=== PATIENT | female | born 1970 | race African-American/Black ===

== ENCOUNTER 2016-08-02 09:26 | Inpatient (IN) | payer OTHER ==
--- NOTE | 2016-08-02 09:42 | PDOC ---
History of Present Illness - General History Source: Patient Exam Limitations: No Limitations - History of Present Illness Initial Comments: 08/02/16 10:38 The patient is a 45 year old female with significant past medical history of 2 valve replacements (on Coumadin), diabetes, asthma, and COPD who presents to the emergency department with weakness for the last 2 days. The patient states that whenever she stands up she feels as though she is going to pass out, however no syncopal episodes and no LOC. The patient also reports dark, tarry stool for the last 2 days. She denies diarrhea. The patient states she feels dyspnea on exertion. She currently denies any pain. She denies chest pain, SOB at rest, or palpitations. She does report a productive cough with white sputum for the last 2 weeks. She denies any headaches or lightheadedness. She denies any abdominal pain, nausea, or vomiting. The patient denies dysuria, hematuria, or frequency. The patient denies any recent illness, fevers, or chills. She is a 1/2 ppd smoker. She also reports using Aleve daily for chronic body aches. <Emma Nieves - Last Filed: 08/02/16 11:14> <Sandip Marsh - Last Filed: 09/04/16 10:02> - General Chief Complaint: Weakness Stated Complaint: Weakness Time Seen by Provider: 08/02/16 09:41 Past History <Emma Nieves - Last Filed: 08/02/16 11:14> - Past Medical History HTN: Yes Hypercholesterolemia: Yes - Surgical History Cardiac Surgery: Yes (VALVE REPLACEMENT) - Psycho/Social/Smoking Cessation Hx Suicidal Ideation: No Smoking Status: Yes Smoking History: Current every day smoker Number of Cigarettes Smoked Daily: 10 Information on smoking cessation initiated: No <Sandip Marsh - Last Filed: 09/04/16 10:02> - Past Medical History Allergies/Adverse Reactions: Allergies Allergy/AdvReac Type Severity Reaction Status Date / Time Penicillins Allergy Verified 08/02/16 09:28 Home Medications: Ambulatory Orders Albuterol Sulfate [Proair Respiclick] 90 mcg IH DAILY 08/02/16 Olmesartan Medoxomil [Benicar -] 40 mg PO DAILY 08/02/16 Tiotropium [place] [Spiriva] 1 inh PO DAILY 08/02/16 Acetaminophen [Tylenol .Regular Strength -] 650 mg PO Q6H PRN #0 tablet Enoxaparin Sodium [Lovenox] 70 mg SQ Q12H #10 syringe 08/06/16 Nicotine Patch [Nicoderm Patch -] 21 mg TD DAILY #30 patch 08/06/16 Warfarin Na [Coumadin -] 5 mg PO HS #14 tablet 08/06/16 Review of Systems - Review of Systems Able to Perform ROS?: Yes Comments:: 08/02/16 10:39 GENERAL/CONSTITUTIONAL: +Generalized weakness. No fever or chills. HEAD, EYES, EARS, NOSE AND THROAT: No change in vision. No ear pain or discharge. No sore throat. CARDIOVASCULAR: No chest pain or shortness of breath. RESPIRATORY: No cough, wheezing, or hemoptysis. GASTROINTESTINAL: +Dark stools. No nausea, vomiting, diarrhea or constipation. GENITOURINARY: No dysuria, frequency, or change in urination. MUSCULOSKELETAL: +Body aches. No joint or muscle swelling or pain. No neck or back pain. SKIN: No rash NEUROLOGIC: No headache, vertigo, loss of consciousness, or change in strength/ sensation. ENDOCRINE: No increased thirst. No abnormal weight change. HEMATOLOGIC/LYMPHATIC: No anemia, easy bleeding, or history of blood clots. ALLERGIC/IMMUNOLOGIC: No hives or skin allergy. <Emma Nieves - Last Filed: 08/02/16 11:14> *Physical Exam - Vital Signs Last Vital Signs Temp Pulse Resp BP Pulse Ox 99 F 100 H 20 108/58 97 08/02/16 09:33 08/02/16 09:33 08/02/16 09:33 08/02/16 09:33 08/02/16 10:01 - Physical Exam Comments: 08/02/16 10:39 GENERAL: Awake, alert, and fully oriented, in no acute distress HEAD: No signs of trauma EYES: PERRLA, EOMI, sclera anicteric, conjunctiva clear ENT: Auricles normal inspection, hearing grossly normal, nares patent, oropharynx clear without exudates. Moist mucosa NECK: Normal ROM, supple, no lymphadenopathy, JVD, or masses LUNGS: Breath sounds equal, clear to auscultation bilaterally. No wheezes, and no crackles HEART: Regular rate and rhythm, normal S1 and S2, no murmurs, rubs or gallops ABDOMEN: Soft, nontender, normoactive bowel sounds. No guarding, no rebound. No masses EXTREMITIES: Normal range of motion, no edema. No clubbing or cyanosis. No cords, erythema, or tenderness NEUROLOGICAL: Cranial nerves II through XII grossly intact. Normal speech, normal gait SKIN: Warm, Dry, normal turgor, no rashes or lesions noted. Patient did not tolerate a rectal exam. <Emma Nieves - Last Filed: 08/02/16 11:14> - Vital Signs Last Vital Signs Temp Pulse Resp BP Pulse Ox 99 F 100 H 20 108/58 100 08/02/16 09:33 08/02/16 09:33 08/02/16 09:33 08/02/16 09:33 08/02/16 09:33 <Sandip Marsh - Last Filed: 09/04/16 10:02> Heart Score/ECG Review - [place] Comment: 08/02/16 10:40 Vent rate: 93 bpm [place] interval: 146 ms QRS duration: 86 ms Normal sinus rhythm Left ventricular hypertrophy <EzequielEmma - Last Filed: 08/02/16 11:14> ED Treatment Course - LABORATORY CBC & Chemistry Diagram: 08/02/16 10:01 08/02/16 10:01 - ADDITIONAL ORDERS Additional order review: Laboratory Results 08/02/16 10:01 Crossmatch See Detail 08/02/16 10:01 RBC 2.16 L MCV 80.6 MCHC 32.2 RDW 22.1 H MPV 8.7 Neutrophils % 77.8 Lymphocytes % 13.7 Monocytes % 5.4 Eosinophils % 2.7 Basophils % 0.4 <EzequielEmma - Last Filed: 08/02/16 11:14> - LABORATORY CBC & Chemistry Diagram: 08/06/16 06:00 08/06/16 06:00 - RADIOLOGY Radiology Studies Ordered: Category Date Time Status CHEST X-RAY PORTABLE* [RAD] Stat Radiology 08/02/16 09:32 Ordered <Sandip Marsh - Last Filed: 09/04/16 10:02> Medical Decision Making - Critical Care Time Total Critical Care Time (minutes): 60 Critical Care Statement: The care of this patient involved high complexity decision making to prevent further life threatening deterioration of the patient 's condition and/or to evalute & treat vital organ system(s) failure or risk of failure. - Medical Decision Making 08/02/16 10:54 45 yo F currently on coumadin and taking Aleve daily. Presents to the ED with generalized weakness and dark tarry stool for 2 days. Patient found to have INR of 9.35 and Hgb of 5.6. 08/02/16 10:[address] Cotter for admission (for patient's PMD Dr. Santana). 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 08/02/16 10:[address] Rm's office. Was told Dr. Salvador will return call for admission. 08/02/16 10:[address] Salvador for admission. Awaiting call back for ICU approval. <Emma Nieves - Last Filed: 08/02/16 11:14> *DC/Admit/Observation/Transfer - Attestations Scribe Attestion: 08/02/16 10:39 Documentation prepared by Emma Nieves, acting as medical scientific officer for Sandip Marsh DO. <Emma Nieves - Last Filed: 08/02/16 11:14> - Attestations Physician Attestion: 08/02/16 09:42 I, Dr. Sandip Marsh, attest that this document has been prepared under my direction and personally reviewed by me in its entirety. I further attest, that it accurately reflects all work, treatment, procedures and medical decision -making performed by me. <Sandip Marsh - Last Filed: 09/04/16 10:02> Diagnosis at time of Disposition: GI bleed - Discharge Dispostion Disposition: HOME Condition at time of disposition: Stable - Prescriptions - Referrals
[2016-08-02 10:20] LABS: MCH 25.9 pg (25.7-33.7); MCHC 32.2 g/dl (32.0-36.0); MEAN CELL VOLUME 80.6 fl (80-96); MEAN PLT VOLUME 8.7 fl (7.5-11.1); PLATELET COUNT 155 K/MM3 (134-434); RDW 22.1 % (11.6-15.6); WHITE BLOOD COUNT 16.3 K/mm3 (4.0-10.0)
[2016-08-02 10:26] LABS: NEUTROPHILS 77.8 % (42.8-82.8)
[2016-08-02 10:27] LABS: BASOPHIL 0.4 % (0-2.0); EOSINOPHIL 2.7 % (0-4.5)
[2016-08-02 10:49] LABS: INR 9.35 (0.82-1.09); PROTHROMBIN TIME (PATIENT) 107.7 SEC (9.98-11.88)
[2016-08-02] MEDS ORDERED: PHYTONADIONE 10 MG/1 ML AMP IVPB ONE (10:49)
[2016-08-02 10:55] LABS: ALBUMIN 3.1 g/dl (3.4-5.0); ANION GAP 8 (8-16); CALCIUM 7.5 mg/dL (8.5-10.1); CO2 21 mmol/L (21-32); CREATININE 0.8 mg/dL (0.55-1.02); GLUCOSE,RANDOM 131 mg/dL (74-106); SGOT/AST 24 U/L (15-37); SGPT/ALT 29 U/L (12-78)
[2016-08-02 10:59] LABS: ALK PHOS 62 U/L (45-117); BILIRUBIN,TOTAL 0.3 mg/dL (0.2-1.0); TOT PROT 5.8 g/dl (6.4-8.2); TROPONIN I < 0.02 ng/ml (0.00-0.05)
[2016-08-02] MEDS ORDERED: PHYTONADIONE 10 MG/1 ML AMP ONE (11:13)
--- NOTE | 2016-08-02 12:54 | HP ---
Admitting History and Physical - Primary Care Physician PCP: Saul Santana - Admission Chief Complaint: dizziness and black tarry stools for 2 days History of Present Illness: The patient is a 45 year old female with significant past medical history of 2 valve replacements (on Coumadin), diabetes, asthma, and COPD who presents to the emergency department with weakness for the last 2 days. The patient states that whenever she stands up she feels as though she is going to pass out, however no syncopal episodes and no LOC. The patient also reports dark, tarry stool for the last 2 days. She denies diarrhea. The patient states she feels dyspnea on exertion. She currently denies any pain. She denies chest pain, SOB at rest, or palpitations. She denies any headaches . She denies any abdominal pain, nausea, or vomiting. The patient denies dysuria, hematuria, or frequency. The patient denies any recent illness, fevers, or chills. She is a 1/2 ppd smoker. She also reports using Aleve daily for chronic body aches. per patient she had coloscopy a few months ago had four polyps removed but doesnot remeber name of GI doctor currently she is getting PRBC, still dizziness but is feeling better that when she came in last melanotic stool was earlier today in ER h/h 5 and INR 9 History Source: Patient - Past Medical History Cardiovascular: Yes: HTN, Hyperlipdemia, Other (heart valve) Pulmonary: Yes: Asthma, COPD Gastrointestinal: Yes: Other (polyp removed) Endocrine: Yes: Diabetes Mellitus - Past Surgical History Additional Past Surgical History: prothetic mitral valve in 2013 - Smoking History Smoking history: Current every day smoker Aproximately how many cigarettes per day: 10 Home Medications - Allergies Allergies/Adverse Reactions: Allergies Allergy/AdvReac Type Severity Reaction Status Date / Time Penicillins Allergy Verified 08/02/16 09:28 - Home Medications Home Medications: Ambulatory Orders Warfarin Na [Coumadin] 7 mg PO HS 09/05/12 Albuterol Sulfate [Proair Respiclick] 90 mcg IH DAILY 08/02/16 Amlodipine Besylate 5 mg PO DAILY 08/02/16 Atorvastatin [place] [Lipitor] 40 mg PO HS 08/02/16 Diphenhydramine [Benadryl -] 25 mg PO ASDIR 08/02/16 Gabapentin 300 mg PO DAILY 08/02/16 Linaclotide [Linzess] 145 mcg PO DAILY 08/02/16 Mirtazapine [Remeron -] 15 mg PO DAILY 08/02/16 Olmesartan Medoxomil [Benicar (Nf)] 40 mg PO DAILY 08/02/16 Tiotropium [place] [Spiriva] 1 inh PO DAILY 08/02/16 Tramadol HCl 50 mg PO DAILY 08/02/16 Review of Systems - Review of Systems Constitutional: reports: Other (dizziness) Physical Examination Vital Signs: Vital Signs Temperature 98.0 F 08/02/16 12:37 Pulse Rate 98 H 08/02/16 12:37 Respiratory Rate 20 08/02/16 12:37 Blood Pressure 99/62 08/02/16 12:37 O2 Sat by Pulse Oximetry (%) 99 08/02/16 12:37 Constitutional: Yes: Calm Eyes: Yes: Other (conjuctival pallor) Cardiovascular: Yes: Regular Rate and Rhythm, Murmur, S1, S2 Respiratory: Yes: CTA Bilaterally Gastrointestinal: Yes: Normal Bowel Sounds, Soft Edema: No Neurological: Yes: Alert, Oriented Imaging - Results Chest X-ray: Report Reviewed (no infiltrate no effusion) Problem List - Problems (1) GI bleed Assessment/Plan: icu monitioring NPO 3 untis prbc serial h/h GI eval protonix drip Code(s): K92.2 - GASTROINTESTINAL HEMORRHAGE, UNSPECIFIED (2) H/O prosthetic mitral valve Assessment/Plan: on coumadin -supratherpeutic INR FPP vitamin K cardio eval (3) Supratherapeutic INR Assessment/Plan: FFP and vitamin K Code(s): R79.1 - ABNORMAL COAGULATION PROFILE (4) HTN (hypertension) Assessment/Plan: curretnly bleeding borderline BP will hold anti htn meds for now PRBC and fluids Code(s): I10 - ESSENTIAL (PRIMARY) HYPERTENSION (5) HLD (hyperlipidemia) Assessment/Plan: lipid profile statin Code(s): E78.5 - HYPERLIPIDEMIA, UNSPECIFIED (6) Diabetes Assessment/Plan: bgm sliding scale hga1c Code(s): E11.9 - TYPE 2 DIABETES MELLITUS WITHOUT COMPLICATIONS Qualifiers: Diabetes mellitus type: type 2 (7) COPD (chronic obstructive pulmonary disease) Assessment/Plan: bronchodilators smoking cessation Code(s): J44.9 - CHRONIC OBSTRUCTIVE PULMONARY DISEASE, UNSPECIFIED
[2016-08-02] MEDS ORDERED: ALBUTEROL SO4 6.7 GM HFA INHALER IH PRN (13:01)
[2016-08-02] MEDS: PANTOPRAZOLE SODIUM 80 MG in SODIUM CHLORIDE 100 ML IVPB SCH ×2 (13:09→18:22)
[2016-08-02] MEDS: SODIUM CHLORIDE 1,000 ML IV SCH (13:09)
[2016-08-02] MEDS ORDERED: PANTOPRAZOLE SODIUM 100 ML IVPB ONE (13:10)
[2016-08-02] MEDS ORDERED: PANTOPRAZOLE SODIUM 80 MG in SODIUM CHLORIDE 100 ML IVPB SCH (13:15)
--- NOTE | 2016-08-02 14:31 | CONSULT ---
Consult - text type - Consultation Consultation Note: The patient is a 45 year old female with significant past medical history of 2 valve replacements (on Coumadin), diabetes, asthma, and COPD who presents to the emergency department with weakness for the last 2 days. The patient states that whenever she stands up she feels as though she is going to pass out, however no syncopal episodes and no LOC. The patient also reports dark, tarry stool for the last 2 days. She denies diarrhea. The patient states she feels dyspnea on exertion. She currently denies any pain. She denies chest pain, SOB at rest, or palpitations. She does report a productive cough with white sputum for the last 2 weeks. She denies any headaches or lightheadedness. She denies any abdominal pain, nausea, or vomiting. The patient denies dysuria, hematuria, or frequency. The patient denies any recent illness, fevers, or chills. She is a 1/2 ppd smoker. She also reports using Aleve daily for chronic body aches. - Past Medical History HTN: Yes Hypercholesterolemia: Yes - Surgical History Cardiac Surgery: Yes (VALVE REPLACEMENT) - Psycho/Social/Smoking Cessation Hx smoker Allergies/Adverse Reactions: Allergies Allergy/AdvReac Type Severity Reaction Status Date / Time Penicillins Allergy Verified 08/02/16 09:28 Home Medications: Ambulatory Orders Warfarin Na [Coumadin] 7 mg PO HS 09/05/12 Albuterol Sulfate [Proair Respiclick] 90 mcg IH DAILY 08/02/16 Amlodipine Besylate 5 mg PO DAILY 08/02/16 Atorvastatin Ca [Lipitor] 40 mg PO HS 08/02/16 Diphenhydramine [Benadryl -] 25 mg PO ASDIR 08/02/16 Gabapentin 300 mg PO DAILY 08/02/16 Linaclotide [Linzess] 145 mcg PO DAILY 08/02/16 Mirtazapine [Remeron -] 15 mg PO DAILY 08/02/16 Olmesartan Medoxomil [Benicar (Nf)] 40 mg PO DAILY 08/02/16 Tiotropium [place] [Spiriva] 1 inh PO DAILY 08/02/16 Tramadol HCl 50 mg PO DAILY 08/02/16 Current Medications Aclidinium [place] (Tudorza -) 1 puff IH BID LENOR[place] Albuterol Sulfate (Ventolin Hfa Inhaler -) 2 puff IH Q4H PRN PRN Reason: SHORT OF BREATH/WHEEZING Chlorhexidine Gluconate (Hibiclens For Decolonization -) 1 applic TP HS LENORA Sodium Chloride (Normal Saline -) 1,000 mls @ 100 mls/hr IV ASDIR LENORA Last Admin: 08/02/16 13:09 Dose: 100 mls/hr Pantoprazole Sodium 80 mg/ (Sodium Chloride) 100 mls @ 10 mls/hr IVPB Q10H L[place] PRN Reason: 8 MG/HR Last Admin: 08/02/16 13:09 Dose: 10 mls/hr Insulin Aspart (Novolog Vial Sliding Scale -) 1 vial SQ ACHS LENORA PRN Reason: Protocol Mupirocin (Bactroban Ointment (For Decolonization) -) 1 applic NS BID LENORA Stop: 08/07/16 21:59 Last Vital Signs Temp Pulse Resp BP Pulse Ox 97.8 F 101 H 18 128/61 98 08/02/16 14:15 08/02/16 14:15 08/02/16 14:15 08/02/16 14:15 08/02/16 14:15 HEENT: BETTIE, EOM Intact Oropharynx: No thrush, No mucositis Neck: Supple Cor: RSR, No murmurs, No gallops Lungs: Clear to P&A Abd: Soft, Normal bowel sounds, No organomegaly Ext:No significant edema Abnormal Lab Results 08/02/16 08/02/16 08/02/16 10:01 10:01 10:01 WBC 16.3 H RBC 2.16 L Hgb 5.6 L* Hct 17.4 L RDW 22.1 H INR 9.35 H* Chloride 111 H Random Glucose 131 H Calcium 7.5 L Total Protein 5.8 L Albumin 3.1 L Crossmatch 08/02/16 10:01 WBC RBC Hgb Hct RDW INR Chloride Random Glucose Calcium Total Protein Albumin Crossmatch See Detail A/P 45 y/o patient with h/o mechanical valve replacements, on coumadin comes in with gi bleed, INR of 9, Hgb of5 Getting Vitamin K 10mg IVPB/4 units FFP and 2 units PRBCS to be monitored in the icu repeat cbc/pt/ptt for gi/cardiology f/u to reinitiate a/c with heparin and coumadin bridging once gi w/u completed and bleeding resolves
[2016-08-02 15:34] LABS: ANISOCYTOSIS 4+; MICROCYTOSIS 2+; POLYCHROMASIA 2+; TARGET CELLS 1+
--- NOTE | 2016-08-02 15:38 | CONSULT ---
Consultation: REQUESTING PROVIDER: Dr. Salvador CONSULT REQUEST: We have been asked to medically evaluate this patient for critical care HISTORY OF PRESENT ILLNESS: 45 yo female with h/o ?mitral regurgitation s/p valve replacement on coumadin, DM, asthma, COPD admitted to the ICU for supratherapeutic level of INR (9.35) and possible GIB. Pt was found to have dizziness, lightheadedness, and black tarry stool for 3 days. In addition, she' s experiencing headaches, seeing cho and feeling short of breath. She admits taking Alieve (500mg) x 4 pills yesterday and 2 pills this morning for fibromylgia but never overdosed on her coumadin. Her most recently colonoscopy was done few months ago and a few polyps were removed. Denies trauma, fever, chills, abd pain, chest pain, dysuria, hematuria. REVIEW OF SYSTEMS: CONSTITUTIONAL: generalized weakness Absent: fever, chills, diaphoresis, malaise, loss of appetite, weight change HEENT: Absent: rhinorrhea, nasal congestion, throat pain, throat swelling, difficulty swallowing, mouth swelling, ear pain, eye pain, visual changes CARDIOVASCULAR: syncope, lightheadedness Absent: chest pain, palpitations, irregular heart rate, peripheral edema RESPIRATORY: shortness of breath, dyspnea with exertion Absent: cough, orthopnea, wheezing, stridor, hemoptysis GASTROINTESTINAL:melena Absent: abdominal pain, abdominal distension, nausea, vomiting, diarrhea, constipation, hematochezia GENITOURINARY: Absent: dysuria, frequency, urgency, hesitancy, hematuria, flank pain, genital pain MUSCULOSKELETAL: Absent: myalgia, arthralgia, joint swelling, back pain, neck pain SKIN: Absent: rash, itching, pallor HEMATOLOGIC/IMMUNOLOGIC: Absent: easy bleeding, easy bruising, lymphadenopathy, frequent infections ENDOCRINE: Absent: unexplained weight gain, unexplained weight loss, heat intolerance, cold intolerance NEUROLOGIC: Absent: headache, focal weakness or paresthesias, dizziness, unsteady gait, seizure, mental status changes, bladder or bowel incontinence PSYCHIATRIC: Absent: anxiety, depression, suicidal or homicidal ideation, hallucinations. PHYSICAL EXAMINATION Vital Signs - 24 hr 08/02/16 08/02/16 08/02/16 11:38 12:35 12:37 Temperature 98.5 F 98.0 F Pulse Rate [ 100 H 98 H Right Apical] Respiratory 18 20 Rate Blood Pressure 126/59 99/62 [Right Arm] O2 Sat by Pulse 97 98 99 Oximetry (%) 08/02/16 14:15 Temperature 97.8 F Pulse Rate [ 101 H Right Apical] Respiratory 18 Rate Blood Pressure 128/61 [Right Arm] O2 Sat by Pulse 98 Oximetry (%) GENERAL: Awake, alert, and fully oriented, in no acute distress. HEAD: Normal with no signs of trauma. EYES: Pupils equal, round and reactive to light, extraocular movements intact, sclera anicteric, conjunctiva pale. EARS, NOSE, THROAT: pale oropharynx clear without exudates. dry mucous membranes. NECK: supple without JVD or mass LUNGS: CTAB. No wheezes, and no crackles. No accessory muscle use. HEART: Regular rate and rhythm, normal S1 and S2 with holosystolic ejection murmur, rub or gallop. ABDOMEN: Soft, nontender, not distended, normoactive bowel sounds, no guarding, no rebound, no masses. UPPER EXTREMITIES: Cap refill >2 seconds. No peripheral edema. LOWER EXTREMITIES:No calf tenderness. No peripheral edema. NEUROLOGICAL: Cranial nerves II-XII intact. Normal speech PSYCHIATRIC: Cooperative. Good eye contact. Appropriate mood and affect. SKIN: Warm, dry, normal turgor, no rashes or lesions noted. Active Medications Generic Name Dose Route Start Last Admin Trade Name Freq PRN Reason Stop Dose Admin Aclidinium [place] 1 puff 08/02/16 22:00 Tudorza - IH BID LENORA Albuterol Sulfate 2 puff 08/02/16 13:01 Ventolin Hfa Inhaler - IH Q4H PRN SHORT OF BREATH/WHEEZING Chlorhexidine Gluconate 1 applic 08/02/16 22:00 Hibiclens For Decolonization - TP HS LENORA Sodium Chloride 1,000 mls @ 100 mls/hr 08/02/16 13:15 08/02/16 13:09 Normal Saline - IV 100 mls/hr ASDIR LENORA Administration Pantoprazole Sodium 80 mg/ 100 mls @ 10 mls/hr 08/02/16 13:15 08/02/16 13:09 Sodium Chloride IVPB 10 mls/hr Q10H LENORA Administration 8 MG/HR Insulin Aspart 1 vial 08/02/16 16:30 Novolog Vial Sliding Scale - SQ ACHS LENORA Protocol Mupirocin 1 applic 08/02/16 22:00 Bactroban Ointment (For Decolonization) - NS 08/07/16 21:59 BID [facility] Imaging: CXR: no acute pathology ASSESSMENT/PLAN: 45 yo female with h/o ?mitral regurgitation s/p valve replacement on coumadin, DM, asthma, COPD admitted to the ICU for supratherapeutic level of INR (9.35) and possible upper GI bleed likely 2/2 NSAID use. ID - elevated WBC likely 2/2 hemoconcentration - observe off abx Pulm - cont. tudorza 1 puff BID - cont. ventolin 2 puff Q4 Cardio - no active chest pain GI - likely upper GIB 2/2 NSAID use on top of coumadin - may need endoscopy - cont. IVF - cont. PPI drip Renal/ - normal kidney function and electrolytes Heme - transfuse 3 FFP and 2 units of PRBC - recheck CBC Endo - on sliding scale - BGM Prophylaxis - DVT: not indicated - GI: protonix Nutrition - NPO Dispo: cont. to monitor in ICU Visit type - Emergency Visit Emergency Visit: No - New Patient This patient is new to me today: Yes Date on this admission: 08/02/16 - Critical Care Critical Care patient: Yes Total Critical Care Time (in minutes): 35 Critical Care Statement: The care of this patient involved high complexity decision making to prevent further life threatening deterioration of the patient 's condition and/or to evalute & treat vital organ system(s) failure or risk of failure.
--- NOTE | 2016-08-02 15:57 | CON.CARD ---
Cardiology Consult (text) - Consultation Consultation Note: CC: supratherapeutic INR 45 smoker with h/o mechanical MVR and ?possible mechanical AVR (at [facility]-pt does not recall specifics of surgery or indication) on coumadin, HTN, HL, diabetes, asthma/COPD, fibromyalgia who presents with weakness/dizziness, black tarry stools and found to have severe anemia with supratherapeutic INR. 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 INR followed by pcp. States she checks her INR every 2 weeks and it is typically well controlled. No change in medications the past 2 weeks or alcohol consumption. + rubin x 2 days + orthostatic sx's, weakness. + dark/black stool x 2 days. States has had black stool before but color always normalizes, this time it stayed. + chronic pain 2/2 fibromyalgia-states she walks with cane/walker at baseline Takes aleve intermittently for pain. typically 1-2, tablets 1-2 times/day. She denies chest pain, SOB at rest, or palpitations. orthpnea, pnd, le edema, claudication, transient neurologic sx's. She denies any headaches . She denies any abdominal pain, nausea, or vomiting, f /c/s, cough, congestion, rashes. Has received IVF. 10 mg IV vitamin K, FFP and prbc's. pmhx/pshx: per hpi fam hx: no other family hx of valvular disease social hx: current smoker, drinks large glass of wine mixed with vodka weekly. no hx of ivdu. ros: per hpi Ambulatory Orders Warfarin Na [Coumadin] 7 mg PO HS 09/05/12 Albuterol Sulfate [Proair Respiclick] 90 mcg IH DAILY 08/02/16 Amlodipine Besylate 5 mg PO DAILY 08/02/16 Atorvastatin Ca [Lipitor] 40 mg PO HS 08/02/16 Diphenhydramine [Benadryl -] 25 mg PO ASDIR 08/02/16 Gabapentin 300 mg PO DAILY 08/02/16 Linaclotide [Linzess] 145 mcg PO DAILY 08/02/16 Mirtazapine [Remeron -] 15 mg PO DAILY 08/02/16 Olmesartan Medoxomil [Benicar (Nf)] 40 mg PO DAILY 08/02/16 Tiotropium [place] [Spiriva] 1 inh PO DAILY 08/02/16 Tramadol HCl 50 mg PO DAILY 08/02/16 Current Medications Aclidinium [place] (Tudorza -) 1 puff IH BID [facility] Albuterol Sulfate (Ventolin Hfa Inhaler -) 2 puff IH Q4H PRN PRN Reason: SHORT OF BREATH/WHEEZING Chlorhexidine Gluconate (Hibiclens For Decolonization -) 1 applic TP HS [facility] Sodium Chloride (Normal Saline -) 1,000 mls @ 100 mls/hr IV ASDIR [facility] Last Admin: 08/02/16 13:09 Dose: 100 mls/hr Pantoprazole Sodium 80 mg/ (Sodium Chloride) 100 mls @ 10 mls/hr IVPB Q10H [facility] PRN Reason: 8 MG/HR Last Admin: 08/02/16 13:09 Dose: 10 mls/hr Insulin Aspart (Novolog Vial Sliding Scale -) 1 vial SQ ACHS [facility] PRN Reason: Protocol Mupirocin (Bactroban Ointment (For Decolonization) -) 1 applic NS BID [facility] Stop: 08/07/16 21:59 Vital Signs - 24 hr 08/02/16 08/02/16 08/02/16 09:33 10:01 11:38 Temperature 99 F 98.5 F Pulse Rate 100 H Pulse Rate [ 100 H Right Apical] Respiratory 20 18 Rate Blood Pressure 108/58 Blood Pressure 126/59 [Right Arm] O2 Sat by Pulse 100 97 97 Oximetry (%) 08/02/16 08/02/16 08/02/16 12:35 12:37 14:15 Temperature 98.0 F 97.8 F Pulse Rate Pulse Rate [ 98 H 101 H Right Apical] Respiratory 20 18 Rate Blood Pressure Blood Pressure 99/62 128/61 [Right Arm] O2 Sat by Pulse 98 99 98 Oximetry (%) 08/02/16 15:00 Temperature 98.4 F Pulse Rate 98 H Pulse Rate [ Right Apical] Respiratory 24 Rate Blood Pressure 114/70 Blood Pressure [Right Arm] O2 Sat by Pulse Oximetry (%) Intake & Output 07/31/16 08/01/16 08/02/16 08/03/16 07:59 07:59 07:59 07:59 Weight 154 lb NAD, calm MMM, no xanthelasmas jvd flat, neck supple ctab, nl effort rrr nl s1, s2 2/6 high pitched murmur at apex with mechanical click. 2/6 soft murmur at sternal border. soft nt nd abd, no hepatomegaly/splenomegaly + dp/pt, no carotid bruits no kyphosis aaox3 no jaundice, diaphoresis CBC, BMP 08/02/16 10:01 08/02/16 10:01 Laboratory Tests 08/02/16 08/02/16 10:01 10:01 INR 9.35 H* Total Bilirubin 0.3 AST 24 ALT 29 Alkaline Phosphatase 62 Albumin 3.1 L ekg: nsr, lvh with repolarization abnormalities tele: sr cxr: wnl 45 smoker with h/o mechanical MVR and ?possible mechanical AVR (at [facility]-pt does not recall specifics of surgery or indication) on coumadin, HTN, HL, diabetes, asthma/COPD, fibromyalgia who presents with weakness/dizziness, black tarry stools and found to have severe anemia with supratherapeutic INR. mechanical MVR - patient states 2 valves replaced, not sure which ones. Exam c/w mechanical MVR, AVR. However, greater than expected murmur at apex. Would get echo to further evaluate valves - patient has been reversed with vitK. Due to the fact that patient has mechanical MVR and has increased murmur on exam, she needs heparin bridging as soon as INR is subtherapeutic. Would recommend repeat INR check and heparin bridging overnight. - would request op report from pcp for details regarding surgery - anemia mgm't per pmd/GI HTN - currently running low off anti-hypertensives HL - ok to hold statin for now
--- NOTE | 2016-08-02 16:03 | EKG ---
Test Reason : Blood Pressure : / mmHG Vent. Rate : 093 BPM Atrial Rate : 093 BPM P-R Int : 146 ms QRS Dur : 086 ms QT Int : 382 ms P-R-T Axes : 059 032 009 degrees QTc Int : 474 ms NORMAL SINUS RHYTHM POSSIBLE LEFT ATRIAL ENLARGEMENT LEFT VENTRICULAR HYPERTROPHY ABNORMAL ECG WHEN COMPARED WITH ECG OF 05-SEP-2012 15:00, NONSPECIFIC T WAVE ABNORMALITY, WORSE IN INFERIOR LEADS T WAVE INVERSION NO LONGER EVIDENT IN ANTEROLATERAL LEADS QT HAS LENGTHENED Confirmed by DIANA BAR MD ([id number]) on 08/02/2016 4:03:31 PM Referred By: Confirmed By:DIANA BAR MD
[2016-08-02 16:23] VITALS: BMI 29.6
[2016-08-02] MEDS ORDERED: PNEUMOC 13-VAL CONJ-DIP CRM/PF 0.5 ML DISP.SYRIN IM ONE (16:23)
[2016-08-02 17:38] LABS: URINE APPEARANCE SLCLOUDY; URINE BILIRUBIN NEGATIVE (NEGATIVE); URINE COLOR YELLOW; URINE GLUCOSE (UA) NEGATIVE (NEGATIVE); URINE KETONE NEGATIVE (NEGATIVE); URINE LEUK ESTERASE NEGATIVE (NEGATIVE); URINE NITRITE POSITIVE (NEGATIVE); URINE PROTEIN NEGATIVE (NEGATIVE); URINE UROBILINOGEN NEGATIVE E.U./dl (0.2-1.0)
[2016-08-02 17:55] LABS: URINE BLOOD 2+ (NEGATIVE)
[2016-08-02] MEDS: NICOTINE 21 MG/24 HOURS TOPICAL PATCH TD SCH (18:19)
[2016-08-02 18:23] LABS: URINE BACTERIA FEW /hpf (NONE SEEN); URINE MUCUS FEW; URINE RBC 6 /hpf (0-3); URINE WBC 7 /hpf (3-5)
[2016-08-02 18:29] LABS: BASOPHIL 0.4 % (0-2.0); EOSINOPHIL 2.1 % (0-4.5); MCH 27.3 pg (25.7-33.7); MCHC 32.8 g/dl (32.0-36.0); MEAN CELL VOLUME 83.2 fl (80-96); MEAN PLT VOLUME 9.1 fl (7.5-11.1); NEUTROPHILS 72.7 % (42.8-82.8); PLATELET COUNT 124 K/MM3 (134-434); RDW 20.5 % (11.6-15.6); WHITE BLOOD COUNT 15.3 K/mm3 (4.0-10.0)
[2016-08-02 19:01] LABS: INR 1.53 (0.82-1.09)
[2016-08-02] MEDS: INSULIN SLIDING SCALE (NOVOLOG) 1 VIAL SQ SCH ×2 (19:04→22:44)
--- NOTE | 2016-08-02 20:50 | CONSULT ---
Consult Consult Specialty:: Pulm/CCM Reason for Consultation:: UGIB, anemia - History of Present Illness Chief Complaint: SOB, NOLASCO History of Present Illness: This is a 45 yo woman active tobacco ( ppd), COPD, asthma, DM, AVR on coumadin who presented to ED with weakness/fatigue and dyspnea x2 days with near syncopal episodes with black tarry stools found to be coumadin toxic (INR 9) with severe anemia (hgb: 5.6). She was treated with vitamin K 10mg, FFP x2 and PRBC x2. PPI drip started. Follow up INR <2. Denies: fever, chills, nausea, vomiting, BRBPR. She has been using NSAIDS (naproxen) multiple time per day for body aches. She has history of colonic polypectomy. GI consulted. - History Source History Provided By: Patient, Medical Record - Past Medical History Cardio/Vascular: Yes: HTN, Hyperlipdemia, Other (heart valve) Pulmonary: Yes: Asthma, COPD Gastrointestinal: Yes: Other (polyp removed) ...LMP: 07/26/16 ...: No Endocrine: Yes: Diabetes Mellitus - Alcohol/Substance Use Hx Alcohol Use: No - Smoking History Smoking history: Current every day smoker Aproximately how many cigarettes per day: 10 Home Medications - Allergies Allergies/Adverse Reactions: Allergies Allergy/AdvReac Type Severity Reaction Status Date / Time Penicillins Allergy Verified 08/02/16 09:28 - Home Medications Home Medications: Ambulatory Orders Warfarin Na [Coumadin] 7 mg PO HS 09/05/12 Albuterol Sulfate [Proair Respiclick] 90 mcg IH DAILY 08/02/16 Amlodipine Besylate 5 mg PO DAILY 08/02/16 Atorvastatin Ca [Lipitor] 40 mg PO HS 08/02/16 Diphenhydramine [Benadryl -] 25 mg PO ASDIR 08/02/16 Gabapentin 300 mg PO DAILY 08/02/16 Linaclotide [Linzess] 145 mcg PO DAILY 08/02/16 Mirtazapine [Remeron -] 15 mg PO DAILY 08/02/16 Olmesartan Medoxomil [Benicar (Nf)] 40 mg PO DAILY 08/02/16 Tiotropium [place] [Spiriva] 1 inh PO DAILY 08/02/16 Tramadol HCl 50 mg PO DAILY 08/02/16 Review of Systems - Review of Systems Constitutional: reports: Weakness Cardiovascular: reports: Shortness of Breath Respiratory: reports: Cough, SOB on Exertion Gastrointestinal: reports: Melena Neurological: reports: Dizziness Physical Exam Vital Signs: Vital Signs Temperature 98.8 F 08/02/16 19:33 Pulse Rate 70 08/02/16 18:00 Respiratory Rate 20 08/02/16 18:00 Blood Pressure 91/58 08/02/16 18:00 O2 Sat by Pulse Oximetry (%) 98 08/02/16 18:33 Active Medications Aclidinium [place] (Tudorza -) 1 puff IH BID [facility] Last Admin: 08/02/16 22:35 Dose: 1 inh Albuterol Sulfate (Ventolin Hfa Inhaler -) 2 puff IH Q4H PRN PRN Reason: SHORT OF BREATH/WHEEZING Chlorhexidine Gluconate (Hibiclens For Decolonization -) 1 applic TP HS [facility] Last Admin: 08/02/16 22:34 Dose: 1 applic Heparin Sodium (Porcine) (Heparin -) 5,000 unit IVPUSH PRN PRN Heparin Sodium (Porcine) (Heparin -) 1,000 unit IVPUSH PRN PRN Sodium Chloride (Normal Saline -) 1,000 mls @ 100 mls/hr IV ASDIR [facility] Last Admin: 08/02/16 13:09 Dose: 100 mls/hr Pantoprazole Sodium 80 mg/ (Sodium Chloride) 100 mls @ 10 mls/hr IVPB Q10H [facility] PRN Reason: 8 MG/HR Last Admin: 08/02/16 18:22 Dose: 10 mls/hr Heparin Sodium/Dextrose (Heparin Infusion -) 500 mls @ 20 mls/hr IVPB TITR [facility] ; 1,000 UNITS/HR PRN Reason: Protocol Last Admin: 08/02/16 22:31 Dose: 20 mls/hr Insulin Aspart (Novolog Vial Sliding Scale -) 1 vial SQ ACHS [facility] PRN Reason: Protocol Last Admin: 08/02/16 22:44 Dose: Not Given Mupirocin (Bactroban Ointment (For Decolonization) -) 1 applic NS BID [facility] Stop: 08/07/16 21:59 Last Admin: 08/02/16 22:37 Dose: 1 applic Nicotine (Nicoderm Patch -) 21 mg TD DAILY [facility] Last Admin: 08/02/16 18:19 Dose: 21 mg Constitutional: Yes: No Distress, Calm Eyes: Yes: EOM Intact HENT: Yes: Normocephalic Cardiovascular: Yes: Regular Rate and Rhythm, Murmur, S1, S2 Respiratory: Yes: CTA Bilaterally Gastrointestinal: Yes: Soft, Melena Extremities: Yes: WNL Edema: No Neurological: Yes: Alert, Oriented Labs: CBCD WBC 12.1 K/mm3 (4.0-10.0) H 08/03/16 00:05 RBC 2.45 M/mm3 (3.60-5.2) L 08/03/16 00:05 Hgb 6.9 GM/dL (10.7-15.3) L* D 08/03/16 00:05 Hct 20.9 % (32.4-45.2) L D 08/03/16 00:05 MCV 85.2 fl (80-96) 08/03/16 00:05 MCHC 33.3 g/dl (32.0-36.0) 08/03/16 00:05 RDW 19.5 % (11.6-15.6) H 08/03/16 00:05 Plt Count 106 K/MM3 (134-434) L 08/03/16 00:05 MPV 9.3 fl (7.5-11.1) 08/03/16 00:05 CMP Sodium 140 mmol/L (136-145) 08/02/16 10:01 Potassium 3.7 mmol/L (3.5-5.1) 08/02/16 10:01 Chloride 111 mmol/L (98-107) H 08/02/16 10:01 Carbon Dioxide 21 mmol/L (21-32) 08/02/16 10:01 Anion Gap 8 (8-16) 08/02/16 10:01 BUN 18 mg/dL (7-18) 08/02/16 10:01 Creatinine 0.8 mg/dL (0.55-1.02) 08/02/16 10:01 Creat Clearance w eGFR > 60 (>60) 08/02/16 10:01 Random Glucose 131 mg/dL (74-106) H 08/02/16 10:01 Calcium 7.5 mg/dL (8.5-10.1) L 08/02/16 10:01 Total Bilirubin 0.3 mg/dL (0.2-1.0) 08/02/16 10:01 AST 24 U/L (15-37) 08/02/16 10:01 ALT 29 U/L (12-78) 08/02/16 10:01 Alkaline Phosphatase 62 U/L (45-117) 08/02/16 10:01 Total Protein 5.8 g/dl (6.4-8.2) L 08/02/16 10:01 Albumin 3.1 g/dl (3.4-5.0) L 08/02/16 10:01 CARDIAC ENZYMES Creatine Kinase 118 IU/L (26-192) 08/02/16 10:01 Troponin I < 0.02 ng/ml (0.00-0.05) 08/02/16 10:01 Imaging - Results Chest X-ray: Report Reviewed, Image Reviewed EKG: Report Reviewed, Image Reviewed Problem List - Problems (1) COPD (chronic obstructive pulmonary disease) Code(s): J44.9 - CHRONIC OBSTRUCTIVE PULMONARY DISEASE, UNSPECIFIED (2) Diabetes Code(s): E11.9 - TYPE 2 DIABETES MELLITUS WITHOUT COMPLICATIONS Qualifiers: Diabetes mellitus type: type 2 (3) GI bleed Code(s): K92.2 - GASTROINTESTINAL HEMORRHAGE, UNSPECIFIED (5) HLD (hyperlipidemia) Code(s): E78.5 - HYPERLIPIDEMIA, UNSPECIFIED (6) HTN (hypertension) Code(s): I10 - ESSENTIAL (PRIMARY) HYPERTENSION (7) Supratherapeutic INR Code(s): R79.1 - ABNORMAL COAGULATION PROFILE Assessment/Plan 45 yo woman COPD, DM, AVR on anticoagulation who presented with severe anemia in setting of coumadin toxicity -ICU monitoring -cont home bronchodilators -O2 for sat >92% -Hgb transfusion for goal >7.0 -s/p vitamin K -restart anticoagulation per cardiology and GI -active type and screen -large bore IV access -trend CBC q4-6hr until stable -PPI gtt x 72hrs -GI to evaluate for possible EGD -NPO for now -ISS for BS >180 Boerem ACNP Pulm/CCM
--- NOTE | 2016-08-02 20:52 | CON.GI ---
Consult Consult Specialty:: GI Referred by:: Hospitalist Reason for Consultation:: GI bleed - History of Present Illness Chief Complaint: Melena, symptomatic anemia with near syncope History of Present Illness: 45 F with h/o 2 valve replacement in 2013, DM, HTN, asthma/COPD, ?fibromyalgia, admitted with dizziness/lightheaded with near syncope and a recent history of melena, and found to have a Hgb of 5. - History Source History Provided By: Patient Limitations to Obtaining History: No Limitations - Past Medical History Cardio/Vascular: Yes: HTN, Hyperlipdemia, Other (heart valve replacement x 2) Pulmonary: Yes: Asthma, COPD Gastrointestinal: Yes: Other (polyp removed) ...LMP: 07/26/16 ...: No Endocrine: Yes: Diabetes Mellitus - Alcohol/Substance Use Hx Alcohol Use: No - Smoking History Smoking history: Current every day smoker Aproximately how many cigarettes per day: 10 Home Medications - Allergies Allergies/Adverse Reactions: Allergies Allergy/AdvReac Type Severity Reaction Status Date / Time Penicillins Allergy Verified 08/02/16 09:28 - Home Medications Home Medications: Ambulatory Orders Warfarin Na [Coumadin] 7 mg PO HS 09/05/12 Albuterol Sulfate [Proair Respiclick] 90 mcg IH DAILY 08/02/16 Amlodipine Besylate 5 mg PO DAILY 08/02/16 Atorvastatin Ca [Lipitor] 40 mg PO HS 08/02/16 Diphenhydramine [Benadryl -] 25 mg PO ASDIR 08/02/16 Gabapentin 300 mg PO DAILY 08/02/16 Linaclotide [Linzess] 145 mcg PO DAILY 08/02/16 Mirtazapine [Remeron -] 15 mg PO DAILY 08/02/16 Olmesartan Medoxomil [Benicar (Nf)] 40 mg PO DAILY 08/02/16 Tiotropium [place] [Spiriva] 1 inh PO DAILY 08/02/16 Tramadol HCl 50 mg PO DAILY 08/02/16 Physical Exam-GI Vital Signs: Vital Signs Temperature 98.8 F 08/02/16 19:33 Pulse Rate 70 08/02/16 18:00 Respiratory Rate 20 08/02/16 18:00 Blood Pressure 91/58 08/02/16 18:00 O2 Sat by Pulse Oximetry (%) 98 08/02/16 18:33 Constitutional: Yes: Moderate Distress (leg pain from fibromyalgia) HENT: Yes: Atraumatic, Normocephalic Neck: Yes: Supple Cardiovascular: Yes: Regular Rate and Rhythm, Murmur (2-3/6) Labs: CBC, BMP 08/02/16 17:00 INR, PTT INR 1.53 (0.82-1.09) H D 08/02/16 17:00 Assessment/Plan 45 F with above history admitted with likely upper GI bleed and profound anemia. Currently receiving blo9od. INR of 9 on admission. Now below 2 after 4 units of FFP. Rec: Protonix drip, follow CBC q 12 hours, transfuse to Hgb of 8. Hold AC until after EGD which will be done tomorrow
[2016-08-02 21:29] LABS: INR 1.42 (0.82-1.09); PROTHROMBIN TIME (PATIENT) 15.7 SEC (9.98-11.88)
[2016-08-02] MEDS ORDERED: INSULIN (NOVOLOG) ASPART 100 UNITS/ML 10ML VIAL ONE (21:37)
[2016-08-02] MEDS ORDERED: PT OWN MED DRAWER 7, Y5N ONE (21:37)
[2016-08-02] MEDS ORDERED: HEPARIN NA (PORCINE) 5,000 UNITS/ML 1ML VIAL IVPUSH PRN ×2 (21:55)
[2016-08-02] MEDS: HEPARIN INFUSION - 500 ML IVPB SCH (22:31)
[2016-08-02] MEDS: PNEUMOCOCCAL 23 VACCINE 0.5 ML VIAL IM ONE ×2 (22:32→22:49)
[2016-08-02] MEDS: CHLORHEXIDINE GLUCONATE 4% CLEANSER FOR DECOLONIZATION TP SCH (22:34)
[2016-08-02] MEDS: ACLIDINIUM BROMIDE 400 MCG/INH AERO.POWD IH SCH (22:35)
[2016-08-02] MEDS: MUPIROCIN 2% TOPICAL OINTMENT FOR DECOLONIZATION NS SCH (22:37)
[2016-08-03 00:17] LABS: MCH 28.4 pg (25.7-33.7); MCHC 33.3 g/dl (32.0-36.0); MEAN CELL VOLUME 85.2 fl (80-96); MEAN PLT VOLUME 9.3 fl (7.5-11.1); PLATELET COUNT 106 K/MM3 (134-434); RDW 19.5 % (11.6-15.6); WHITE BLOOD COUNT 12.1 K/mm3 (4.0-10.0)
[2016-08-03] MEDS: PANTOPRAZOLE SODIUM 80 MG in SODIUM CHLORIDE 100 ML IVPB SCH ×3 (01:10→18:25)
[2016-08-03 01:25] LABS: INR 1.28 (0.82-1.09); PROTHROMBIN TIME (PATIENT) 14.1 SEC (9.98-11.88)
[2016-08-03] MEDS: SODIUM CHLORIDE 1,000 ML IV SCH ×2 (06:11→14:39)
[2016-08-03] MEDS: INSULIN SLIDING SCALE (NOVOLOG) 1 VIAL SQ SCH ×4 (06:29→21:36)
[2016-08-03 06:40] LABS: BASOPHIL 0.4 % (0-2.0); EOSINOPHIL 3.9 % (0-4.5); MCH 28.7 pg (25.7-33.7); MCHC 33.4 g/dl (32.0-36.0); MEAN CELL VOLUME 85.9 fl (80-96); MEAN PLT VOLUME 9.4 fl (7.5-11.1); PLATELET COUNT 98 K/MM3 (134-434); WHITE BLOOD COUNT 11.8 K/mm3 (4.0-10.0)
[2016-08-03 06:45] LABS: ANION GAP 9 (8-16); BILIRUBIN,TOTAL 1.3 mg/dL (0.2-1.0); CALCIUM 7.6 mg/dL (8.5-10.1); CO2 23 mmol/L (21-32); CREATININE 0.8 mg/dL (0.55-1.02); GLUCOSE,RANDOM 115 mg/dL (74-106); SGOT/AST 26 U/L (15-37); SGPT/ALT 28 U/L (12-78); TOT PROT 5.8 g/dl (6.4-8.2)
[2016-08-03 06:47] LABS: ALK PHOS 58 U/L (45-117); TROPONIN I < 0.02 ng/ml (0.00-0.05)
[2016-08-03 07:02] LABS: INR 1.21 (0.82-1.09); PROTHROMBIN TIME (PATIENT) 13.4 SEC (9.98-11.88)
[2016-08-03 07:13] LABS: CHOLESTEROL 81 mg/dL (50-200); LDL CHOLESTEROL (ONLY SJRH) 51 mg/dL (5-100)
[2016-08-03 08:20] LABS: ACTIVATED PTT 141.1 SECONDS (26.9-34.4)
[2016-08-03] MEDS: MUPIROCIN 2% TOPICAL OINTMENT FOR DECOLONIZATION NS SCH ×2 (09:56→21:37)
[2016-08-03] MEDS: NICOTINE 21 MG/24 HOURS TOPICAL PATCH TD SCH (09:56)
[2016-08-03] MEDS: ACLIDINIUM BROMIDE 400 MCG/INH AERO.POWD IH SCH ×2 (09:56→21:38)
--- NOTE | 2016-08-03 11:04 | PN ---
Progress Note (short form) - Note Progress Note: Patient seen and examined S/p transfusion and correction of INR to subtherapeutic level. History of mechanical valves-- MVR and ?? AVR In this regard, resumption of a/c with heparin and bridge to therapeutic coumadin level is critical. Last Vital Signs Temp Pulse Resp BP Pulse Ox 98.2 F 80 23 94/51 96 08/03/16 09:23 08/03/16 09:23 08/03/16 09:23 08/03/16 09:23 08/03/16 09:23 HEENT: BETTIE, EOM Intact Oropharynx: No thrush, No mucositis Neck: Supple Cor: RSR, systolic murmur Lungs: Clear to P&A Abd: Soft, Normal bowel sounds, No organomegaly Ext:No significant edema Skin: No rashes, Integument intact CBC, BMP 08/03/16 05:35 08/03/16 05:35 INR, PTT INR 1.21 (0.82-1.09) H 08/03/16 05:35 Fibrinogen 340.0 mg/dL (238-498) 08/03/16 05:35 Current Medications Generic Name Dose Route Start Last Admin Trade Name Freq PRN Reason Stop Dose Admin Aclidinium [place] 1 puff 08/02/16 22:00 08/03/16 09:56 Tudorza - IH 1 inh BID [facility] Administration Albuterol Sulfate 2 puff 08/02/16 13:01 Ventolin Hfa Inhaler - IH Q4H PRN SHORT OF BREATH/WHEEZING Chlorhexidine Gluconate 1 applic 08/02/16 22:00 08/02/16 22:34 Hibiclens For Decolonization - TP 1 applic HS [facility] Administration Heparin Sodium (Porcine) 5,000 unit 08/02/16 21:55 Heparin - IVPUSH PRN PRN Heparin Sodium (Porcine) 1,000 unit 08/02/16 21:55 Heparin - IVPUSH PRN PRN Sodium Chloride 1,000 mls @ 100 mls/hr 08/02/16 13:15 08/03/16 06:11 Normal Saline - IV 100 mls/hr ASDIR [facility] Administration Pantoprazole Sodium 80 mg/ 100 mls @ 10 mls/hr 08/02/16 13:15 08/03/16 09:57 Sodium Chloride IVPB 10 mls/hr Q10H [facility] Administration 8 MG/HR Heparin Sodium/Dextrose 500 mls @ 20 mls/hr 08/02/16 22:00 08/02/16 22:31 Heparin Infusion - IVPB 20 mls/hr TITR [facility] Administration Protocol 1,000 UNITS/HR Insulin Aspart 1 vial 08/02/16 16:30 08/03/16 06:29 Novolog Vial Sliding Scale - SQ Not Given ACHS [facility] Protocol Mupirocin 1 applic 08/02/16 22:00 08/03/16 09:56 Bactroban Ointment (For Decolonization) - NS 08/07/16 21:59 1 applic BID [facility] Administration Nicotine 21 mg 08/02/16 17:00 08/03/16 09:56 Nicoderm Patch - TD 21 mg DAILY [facility] Administration Impression: S/P GI bleeding Supratherapeutic INR now subtherapeutic with correction with Vitamin K and FFP 3 days of Aleeve therapy for Viral type illness- likely contributing to GI bleeding Etiology of elevated INR on admission unclear Heparin bridge to coumadin GI assessment.
--- NOTE | 2016-08-03 12:43 | PN ---
Teaching Attending Note Name of Resident: Balwinder Moreno ATTENDING PHYSICIAN STATEMENT I saw and evaluated the patient. I reviewed the resident's note and discussed the case with the resident. I agree with the resident's findings and plan as documented. SUBJECTIVE: Patient seen and examined in the ICU. Awake and alert. Denies CP or SOB. No occult bleeding. Was on IV heparin, but stopped for anticipated Endoscopy. Intake & Output 07/31/16 08/01/16 08/02/16 08/03/16 23:59 23:59 23:59 23:59 Intake Total 724 1410 Balance 724 1410 Weight 157 lb Last Vital Signs Temp Pulse Resp BP Pulse Ox 98.2 F 80 22 102/61 96 08/03/16 09:23 08/03/16 11:45 08/03/16 11:45 08/03/16 11:45 08/03/16 09:23 Active Medications Aclidinium [place] (Tudorza -) 1 puff IH BID [facility] Last Admin: 08/03/16 09:56 Dose: 1 inh Albuterol Sulfate (Ventolin Hfa Inhaler -) 2 puff IH Q4H PRN PRN Reason: SHORT OF BREATH/WHEEZING Chlorhexidine Gluconate (Hibiclens For Decolonization -) 1 applic TP HS [facility] Last Admin: 08/02/16 22:34 Dose: 1 applic Heparin Sodium (Porcine) (Heparin -) 5,000 unit IVPUSH PRN PRN Heparin Sodium (Porcine) (Heparin -) 1,000 unit IVPUSH PRN PRN Sodium Chloride (Normal Saline -) 1,000 mls @ 100 mls/hr IV ASDIR [facility] Last Admin: 08/03/16 06:11 Dose: 100 mls/hr Pantoprazole Sodium 80 mg/ (Sodium Chloride) 100 mls @ 10 mls/hr IVPB Q10H [facility] PRN Reason: 8 MG/HR Last Admin: 08/03/16 09:57 Dose: 10 mls/hr Heparin Sodium/Dextrose (Heparin Infusion -) 500 mls @ 20 mls/hr IVPB TITR [facility] ; 1,000 UNITS/HR PRN Reason: Protocol Last Admin: 08/02/16 22:31 Dose: 20 mls/hr Insulin Aspart (Novolog Vial Sliding Scale -) 1 vial SQ ACHS [facility] PRN Reason: Protocol Last Admin: 08/03/16 12:22 Dose: Not Given Mupirocin (Bactroban Ointment (For Decolonization) -) 1 applic NS BID [facility] Stop: 08/07/16 21:59 Last Admin: 08/03/16 09:56 Dose: 1 applic Nicotine (Nicoderm Patch -) 21 mg TD DAILY [facility] Last Admin: 08/03/16 09:56 Dose: 21 mg Constitutional: Yes: Awake and alert Eyes: Yes: EOM Intact HENT: Yes: Normocephalic Cardiovascular: Yes: Regular Rate and Rhythm, Murmur, S1, S2 Respiratory: Yes: CTA Bilaterally Gastrointestinal: Yes: Soft, (+) BS Extremities: Yes: WNL Edema: No Neurological: Yes: Alert, Oriented Labs: Laboratory Results - last 24 hr 08/02/16 08/02/16 08/02/16 10:01 10:01 16:30 WBC RBC Hgb Hct MCV MCHC RDW Plt Count MPV Neutrophils % Lymphocytes % Monocytes % Eosinophils % Basophils % Polychromasia 2+ Anisocytosis 4+ Microcytosis 2+ Macrocytosis 2+ Target Cells 1+ INR PTT (Actin FS) Fibrinogen Sodium Potassium Chloride Carbon Dioxide Anion Gap BUN Creatinine Creat Clearance w eGFR Random Glucose Hemoglobin A1c % Calcium Ferritin Total Bilirubin AST ALT Alkaline Phosphatase Creatine Kinase Troponin I Total Protein Albumin Triglycerides Cholesterol Total LDL Cholesterol HDL Cholesterol Urine Color Yellow Urine Appearance Slcloudy Urine pH 5.0 Ur Specific [place] 1.019 Urine Protein Negative Urine Glucose (UA) Negative Urine Ketones Negative Urine Blood 2+ H Urine Nitrite Positive Urine Bilirubin Negative Urine Urobilinogen Negative Ur Leukocyte Esterase Negative Urine RBC 6 Urine WBC 7 Ur Epithelial Cells Rare Urine Bacteria Few Urine Mucus Few Blood Type A POSITIVE A1 Antigen Typing 3+ Antibody Screen Negative Crossmatch See Detail 08/02/16 08/02/16 08/02/16 17:00 17:00 21:00 WBC 15.3 H RBC 2.13 L Hgb 5.8 L* Hct 17.7 L MCV 83.2 MCHC 32.8 RDW 20.5 H Plt Count 124 L MPV 9.1 Neutrophils % 72.7 Lymphocytes % 17.7 D Monocytes % 7.1 Eosinophils % 2.1 Basophils % 0.4 Polychromasia Anisocytosis Microcytosis Macrocytosis Target Cells INR 1.53 H D 1.42 H PTT (Actin FS) Fibrinogen Sodium Potassium Chloride Carbon Dioxide Anion Gap BUN Creatinine Creat Clearance w eGFR Random Glucose Hemoglobin A1c % Calcium Ferritin Total Bilirubin AST ALT Alkaline Phosphatase Creatine Kinase Troponin I Total Protein Albumin Triglycerides Cholesterol Total LDL Cholesterol HDL Cholesterol Urine Color Urine Appearance Urine pH Ur Specific [place] Urine Protein Urine Glucose (UA) Urine Ketones Urine Blood Urine Nitrite Urine Bilirubin Urine Urobilinogen Ur Leukocyte Esterase Urine RBC Urine WBC Ur Epithelial Cells Urine Bacteria Urine Mucus Blood Type A1 Antigen Typing Antibody Screen Crossmatch 08/03/16 08/03/16 08/03/16 00:05 00:05 00:05 WBC 12.1 H RBC 2.45 L Hgb 6.9 L* D Hct 20.9 L D MCV 85.2 MCHC 33.3 RDW 19.5 H Plt Count 106 L MPV 9.3 Neutrophils % Lymphocytes % Monocytes % Eosinophils % Basophils % Polychromasia Anisocytosis Microcytosis Macrocytosis Target Cells INR PTT (Actin FS) 60.0 H Fibrinogen 350.0 Sodium Potassium Chloride Carbon Dioxide Anion Gap BUN Creatinine Creat Clearance w eGFR Random Glucose Hemoglobin A1c % Calcium Ferritin Total Bilirubin AST ALT Alkaline Phosphatase Creatine Kinase Troponin I Total Protein Albumin Triglycerides Cholesterol Total LDL Cholesterol HDL Cholesterol Urine Color Urine Appearance Urine pH Ur Specific [place] Urine Protein Urine Glucose (UA) Urine Ketones Urine Blood Urine Nitrite Urine Bilirubin Urine Urobilinogen Ur Leukocyte Esterase Urine RBC Urine WBC Ur Epithelial Cells Urine Bacteria Urine Mucus Blood Type A1 Antigen Typing Antibody Screen Crossmatch 08/03/16 08/03/16 08/03/16 00:05 05:35 05:35 WBC 11.8 H RBC 2.97 L D Hgb 8.5 L D Hct 25.5 L D MCV 85.9 MCHC 33.4 RDW 17.0 H D Plt Count 98 L MPV 9.4 Neutrophils % 69.0 Lymphocytes % 20.0 Monocytes % 6.7 Eosinophils % 3.9 D Basophils % 0.4 Polychromasia Anisocytosis Microcytosis Macrocytosis Target Cells INR 1.28 H 1.21 H PTT (Actin FS) 141.1 H D Fibrinogen Sodium Potassium Chloride Carbon Dioxide Anion Gap BUN Creatinine Creat Clearance w eGFR Random Glucose Hemoglobin A1c % Calcium Ferritin Total Bilirubin AST ALT Alkaline Phosphatase Creatine Kinase Troponin I Total Protein Albumin Triglycerides Cholesterol Total LDL Cholesterol HDL Cholesterol Urine Color Urine Appearance Urine pH Ur Specific [place] Urine Protein Urine Glucose (UA) Urine Ketones Urine Blood Urine Nitrite Urine Bilirubin Urine Urobilinogen Ur Leukocyte Esterase Urine RBC Urine WBC Ur Epithelial Cells Urine Bacteria Urine Mucus Blood Type A1 Antigen Typing Antibody Screen Crossmatch 08/03/16 08/03/16 08/03/16 05:35 05:35 05:35 WBC RBC Hgb Hct MCV MCHC RDW Plt Count MPV Neutrophils % Lymphocytes % Monocytes % Eosinophils % Basophils % Polychromasia Anisocytosis Microcytosis Macrocytosis Target Cells INR PTT (Actin FS) Fibrinogen Sodium 144 Potassium 3.7 Chloride 112 H Carbon Dioxide 23 Anion Gap 9 BUN 12 D Creatinine 0.8 Creat Clearance w eGFR > 60 Random Glucose 115 H Hemoglobin A1c % 5.0 Calcium 7.6 L Ferritin Total Bilirubin 1.3 H D AST 26 ALT 28 Alkaline Phosphatase 58 Creatine Kinase 126 Troponin I < 0.02 Total Protein 5.8 L Albumin 3.0 L Triglycerides 142 Cholesterol 81 Total LDL Cholesterol 51 HDL Cholesterol 31 L Urine Color Urine Appearance Urine pH Ur Specific [place] Urine Protein Urine Glucose (UA) Urine Ketones Urine Blood Urine Nitrite Urine Bilirubin Urine Urobilinogen Ur Leukocyte Esterase Urine RBC Urine WBC Ur Epithelial Cells Urine Bacteria Urine Mucus Blood Type A1 Antigen Typing Antibody Screen Crossmatch 08/03/16 08/03/16 05:35 05:35 WBC RBC Hgb Hct MCV MCHC RDW Plt Count MPV Neutrophils % Lymphocytes % Monocytes % Eosinophils % Basophils % Polychromasia Anisocytosis Microcytosis Macrocytosis Target Cells INR PTT (Actin FS) Fibrinogen 340.0 Sodium Potassium Chloride Carbon Dioxide Anion Gap BUN Creatinine Creat Clearance w eGFR Random Glucose Hemoglobin A1c % Calcium Ferritin 24.614 Total Bilirubin AST ALT Alkaline Phosphatase Creatine Kinase Troponin I Total Protein Albumin Triglycerides Cholesterol Total LDL Cholesterol HDL Cholesterol Urine Color Urine Appearance Urine pH Ur Specific [place] Urine Protein Urine Glucose (UA) Urine Ketones Urine Blood Urine Nitrite Urine Bilirubin Urine Urobilinogen Ur Leukocyte Esterase Urine RBC Urine WBC Ur Epithelial Cells Urine Bacteria Urine Mucus Blood Type A1 Antigen Typing Antibody Screen Crossmatch Problem List - Problems (1) COPD (chronic obstructive pulmonary disease) Code(s): J44.9 - CHRONIC OBSTRUCTIVE PULMONARY DISEASE, UNSPECIFIED (2) Diabetes Code(s): E11.9 - TYPE 2 DIABETES MELLITUS WITHOUT COMPLICATIONS Qualifiers: Diabetes mellitus type: type 2 (3) GI bleed Code(s): K92.2 - GASTROINTESTINAL HEMORRHAGE, UNSPECIFIED (5) HLD (hyperlipidemia) Code(s): E78.5 - HYPERLIPIDEMIA, UNSPECIFIED (6) HTN (hypertension) Code(s): I10 - ESSENTIAL (PRIMARY) HYPERTENSION (7) Supratherapeutic INR Code(s): R79.1 - ABNORMAL COAGULATION PROFILE Assessment/Plan -O2 for sat >92% -Hgb transfusion for goal >7.0 -s/p vitamin K -anticoagulation per cardiology and GI -large bore IV access -PPI gtt x 72hrs -For possible EGD -NPO for now -ICU monitoring Dr Grayson CCTime 35"
--- NOTE | 2016-08-03 14:18 | PN ---
Progress Note, Physician Chief Complaint: seen in icu NPO for EGD today feeling better not dizzy anymore no more tarry stools - Current Medication List Current Medications: Active Medications Aclidinium [place] (Tudorza -) 1 puff IH BID [facility] Last Admin: 08/03/16 09:56 Dose: 1 inh Albuterol Sulfate (Ventolin Hfa Inhaler -) 2 puff IH Q4H PRN PRN Reason: SHORT OF BREATH/WHEEZING Chlorhexidine Gluconate (Hibiclens For Decolonization -) 1 applic TP HS [facility] Last Admin: 08/02/16 22:34 Dose: 1 applic Heparin Sodium (Porcine) (Heparin -) 5,000 unit IVPUSH PRN PRN Heparin Sodium (Porcine) (Heparin -) 1,000 unit IVPUSH PRN PRN Sodium Chloride (Normal Saline -) 1,000 mls @ 100 mls/hr IV ASDIR [facility] Last Admin: 08/03/16 06:11 Dose: 100 mls/hr Pantoprazole Sodium 80 mg/ (Sodium Chloride) 100 mls @ 10 mls/hr IVPB Q10H [facility] PRN Reason: 8 MG/HR Last Admin: 08/03/16 09:57 Dose: 10 mls/hr Heparin Sodium/Dextrose (Heparin Infusion -) 500 mls @ 20 mls/hr IVPB TITR [facility] ; 1,000 UNITS/HR PRN Reason: Protocol Last Admin: 08/02/16 22:31 Dose: 20 mls/hr Insulin Aspart (Novolog Vial Sliding Scale -) 1 vial SQ ACHS [facility] PRN Reason: Protocol Last Admin: 08/03/16 12:22 Dose: Not Given Mupirocin (Bactroban Ointment (For Decolonization) -) 1 applic NS BID [facility] Stop: 08/07/16 21:59 Last Admin: 08/03/16 09:56 Dose: 1 applic Nicotine (Nicoderm Patch -) 21 mg TD DAILY [facility] Last Admin: 08/03/16 09:56 Dose: 21 mg - Objective Vital Signs: Vital Signs Temperature 98.2 F 08/03/16 09:23 Pulse Rate 99 H 08/03/16 14:09 Respiratory Rate 18 08/03/16 14:09 Blood Pressure 112/81 08/03/16 14:09 O2 Sat by Pulse Oximetry (%) 96 08/03/16 09:23 Constitutional: Yes: Calm Cardiovascular: Yes: Regular Rate and Rhythm, Murmur, S1, S2 Respiratory: Yes: CTA Bilaterally Gastrointestinal: Yes: Normal Bowel Sounds, Soft Edema: No Neurological: Yes: Alert, Oriented Labs: CBC, BMP 08/03/16 05:35 08/03/16 05:35 INR, PTT INR 1.21 (0.82-1.09) H 08/03/16 05:35 Fibrinogen 340.0 mg/dL (238-498) 08/03/16 05:35 Problem List - Problems (1) GI bleed Assessment/Plan: icu monitioring NPO protonix drip to get egd today h/h improved to 8.5 Code(s): K92.2 - GASTROINTESTINAL HEMORRHAGE, UNSPECIFIED (2) H/O prosthetic mitral valve Assessment/Plan: inr corected once etiology of bleed is known then when ok with GI will need haprin to couamdin (3) Supratherapeutic INR Assessment/Plan: s/p 4 FFP and vitamin K- now reversed Code(s): R79.1 - ABNORMAL COAGULATION PROFILE (4) HTN (hypertension) Assessment/Plan: holding meds for now Code(s): I10 - ESSENTIAL (PRIMARY) HYPERTENSION (5) HLD (hyperlipidemia) Assessment/Plan: lipid profile statin on hold low hdl start fish oil lovaza once diet resumes Code(s): E78.5 - HYPERLIPIDEMIA, UNSPECIFIED (6) Diabetes Assessment/Plan: bgm sliding scale hga1c Code(s): E11.9 - TYPE 2 DIABETES MELLITUS WITHOUT COMPLICATIONS (7) COPD (chronic obstructive pulmonary disease) Assessment/Plan: bronchodilators smoking cessation Code(s): J44.9 - CHRONIC OBSTRUCTIVE PULMONARY DISEASE, UNSPECIFIED
--- NOTE | 2016-08-03 14:18 | PN ---
Physical Exam: SUBJECTIVE: Patient seen and examined at bedside in ICU. She reported feeling better but very hungry. s/p 2 FFP/VitK/2 PRBC transfusion. No acute event noted per nurse. Pt denies dizziness, headache, sob, chest pain, abd pain, urinary or bowel sx. OBJECTIVE: Vital Signs Period Temp Pulse Resp BP Sys/Galaviz Pulse Ox Last 24 Hr 97.8 F-98.9 F 67-101 16-24 83-128/51-79 96-98 GENERAL: Awake, alert, and fully oriented, in no acute distress. HEAD: Normal with no signs of trauma. EYES: Pupils equal, round and reactive to light, extraocular movements intact, sclera anicteric, conjunctiva less pale. EARS, NOSE, THROAT: oropharynx clear without exudates. dry mucous membranes. NECK: supple without JVD or mass LUNGS: CTAB. No wheezes, and no crackles. No accessory muscle use. HEART: Regular rate and rhythm, normal S1 and S2 with without murmur, rub or gallop. ABDOMEN: Soft, nontender, not distended, normoactive bowel sounds, no guarding, no rebound, no masses. UPPER EXTREMITIES: Cap refill < 2 seconds. No peripheral edema. LOWER EXTREMITIES:No calf tenderness. No peripheral edema. NEUROLOGICAL: Cranial nerves II-XII intact. Normal speech PSYCHIATRIC: Cooperative. Good eye contact. Appropriate mood and affect. SKIN: Warm, dry, normal turgor, no rashes or lesions noted. Laboratory Results - last 24 hr 08/02/16 08/02/16 08/02/16 16:30 17:00 17:00 WBC 15.3 H RBC 2.13 L Hgb 5.8 L* Hct 17.7 L MCV 83.2 MCHC 32.8 RDW 20.5 H Plt Count 124 L MPV 9.1 Neutrophils % 72.7 Lymphocytes % 17.7 D Monocytes % 7.1 Eosinophils % 2.1 Basophils % 0.4 INR 1.53 H D PTT (Actin FS) Fibrinogen Sodium Potassium Chloride Carbon Dioxide Anion Gap BUN Creatinine Creat Clearance w eGFR Random Glucose Hemoglobin A1c % Calcium Ferritin Total Bilirubin AST ALT Alkaline Phosphatase Creatine Kinase Troponin I Total Protein Albumin Triglycerides Cholesterol Total LDL Cholesterol HDL Cholesterol Urine Color Yellow Urine Appearance Slcloudy Urine pH 5.0 Ur Specific [place] 1.019 Urine Protein Negative Urine Glucose (UA) Negative Urine Ketones Negative Urine Blood 2+ H Urine Nitrite Positive Urine Bilirubin Negative Urine Urobilinogen Negative Ur Leukocyte Esterase Negative Urine RBC 6 Urine WBC 7 Ur Epithelial Cells Rare Urine Bacteria Few Urine Mucus Few 08/02/16 08/03/16 08/03/16 21:00 00:05 00:05 WBC 12.1 H RBC 2.45 L Hgb 6.9 L* D Hct 20.9 L D MCV 85.2 MCHC 33.3 RDW 19.5 H Plt Count 106 L MPV 9.3 Neutrophils % Lymphocytes % Monocytes % Eosinophils % Basophils % INR 1.42 H PTT (Actin FS) 60.0 H Fibrinogen Sodium Potassium Chloride Carbon Dioxide Anion Gap BUN Creatinine Creat Clearance w eGFR Random Glucose Hemoglobin A1c % Calcium Ferritin Total Bilirubin AST ALT Alkaline Phosphatase Creatine Kinase Troponin I Total Protein Albumin Triglycerides Cholesterol Total LDL Cholesterol HDL Cholesterol Urine Color Urine Appearance Urine pH Ur Specific [place] Urine Protein Urine Glucose (UA) Urine Ketones Urine Blood Urine Nitrite Urine Bilirubin Urine Urobilinogen Ur Leukocyte Esterase Urine RBC Urine WBC Ur Epithelial Cells Urine Bacteria Urine Mucus 08/03/16 08/03/16 08/03/16 00:05 00:05 05:35 WBC 11.8 H RBC 2.97 L D Hgb 8.5 L D Hct 25.5 L D MCV 85.9 MCHC 33.4 RDW 17.0 H D Plt Count 98 L MPV 9.4 Neutrophils % 69.0 Lymphocytes % 20.0 Monocytes % 6.7 Eosinophils % 3.9 D Basophils % 0.4 INR 1.28 H PTT (Actin FS) Fibrinogen 350.0 Sodium Potassium Chloride Carbon Dioxide Anion Gap BUN Creatinine Creat Clearance w eGFR Random Glucose Hemoglobin A1c % Calcium Ferritin Total Bilirubin AST ALT Alkaline Phosphatase Creatine Kinase Troponin I Total Protein Albumin Triglycerides Cholesterol Total LDL Cholesterol HDL Cholesterol Urine Color Urine Appearance Urine pH Ur Specific [place] Urine Protein Urine Glucose (UA) Urine Ketones Urine Blood Urine Nitrite Urine Bilirubin Urine Urobilinogen Ur Leukocyte Esterase Urine RBC Urine WBC Ur Epithelial Cells Urine Bacteria Urine Mucus 08/03/16 08/03/16 08/03/16 05:35 05:35 05:35 WBC RBC Hgb Hct MCV MCHC RDW Plt Count MPV Neutrophils % Lymphocytes % Monocytes % Eosinophils % Basophils % INR 1.21 H PTT (Actin FS) 141.1 H D Fibrinogen Sodium 144 Potassium 3.7 Chloride 112 H Carbon Dioxide 23 Anion Gap 9 BUN 12 D Creatinine 0.8 Creat Clearance w eGFR > 60 Random Glucose 115 H Hemoglobin A1c % 5.0 Calcium 7.6 L Ferritin Total Bilirubin 1.3 H D AST 26 ALT 28 Alkaline Phosphatase 58 Creatine Kinase 126 Troponin I < 0.02 Total Protein 5.8 L Albumin 3.0 L Triglycerides Cholesterol Total LDL Cholesterol HDL Cholesterol Urine Color Urine Appearance Urine pH Ur Specific [place] Urine Protein Urine Glucose (UA) Urine Ketones Urine Blood Urine Nitrite Urine Bilirubin Urine Urobilinogen Ur Leukocyte Esterase Urine RBC Urine WBC Ur Epithelial Cells Urine Bacteria Urine Mucus 08/03/16 08/03/16 08/03/16 05:35 05:35 05:35 WBC RBC Hgb Hct MCV MCHC RDW Plt Count MPV Neutrophils % Lymphocytes % Monocytes % Eosinophils % Basophils % INR PTT (Actin FS) Fibrinogen 340.0 Sodium Potassium Chloride Carbon Dioxide Anion Gap BUN Creatinine Creat Clearance w eGFR Random Glucose Hemoglobin A1c % Calcium Ferritin 24.614 Total Bilirubin AST ALT Alkaline Phosphatase Creatine Kinase Troponin I Total Protein Albumin Triglycerides 142 Cholesterol 81 Total LDL Cholesterol 51 HDL Cholesterol 31 L Urine Color Urine Appearance Urine pH Ur Specific [place] Urine Protein Urine Glucose (UA) Urine Ketones Urine Blood Urine Nitrite Urine Bilirubin Urine Urobilinogen Ur Leukocyte Esterase Urine RBC Urine WBC Ur Epithelial Cells Urine Bacteria Urine Mucus Active Medications Generic Name Dose Route Start Last Admin Trade Name Freq PRN Reason Stop Dose Admin Aclidinium [place] 1 puff 08/02/16 22:00 08/03/16 09:56 Tudorza - IH 1 inh BID [facility] Administration Albuterol Sulfate 2 puff 08/02/16 13:01 Ventolin Hfa Inhaler - IH Q4H PRN SHORT OF BREATH/WHEEZING Chlorhexidine Gluconate 1 applic 08/02/16 22:00 08/02/16 22:34 Hibiclens For Decolonization - TP 1 applic HS [facility] Administration Heparin Sodium (Porcine) 5,000 unit 08/02/16 21:55 Heparin - IVPUSH PRN PRN Heparin Sodium (Porcine) 1,000 unit 08/02/16 21:55 Heparin - IVPUSH PRN PRN Sodium Chloride 1,000 mls @ 100 mls/hr 08/02/16 13:15 08/03/16 06:11 Normal Saline - IV 100 mls/hr ASDIR [facility] Administration Pantoprazole Sodium 80 mg/ 100 mls @ 10 mls/hr 08/02/16 13:15 08/03/16 09:57 Sodium Chloride IVPB 10 mls/hr Q10H [facility] Administration 8 MG/HR Heparin Sodium/Dextrose 500 mls @ 20 mls/hr 08/02/16 22:00 08/02/16 22:31 Heparin Infusion - IVPB 20 mls/hr TITR [facility] Administration Protocol 1,000 UNITS/HR Insulin Aspart 1 vial 08/02/16 16:30 08/03/16 12:22 Novolog Vial Sliding Scale - SQ Not Given ACHS [facility] Protocol Mupirocin 1 applic 08/02/16 22:00 08/03/16 09:56 Bactroban Ointment (For Decolonization) - NS 08/07/16 21:59 1 applic BID [facility] Administration Nicotine 21 mg 08/02/16 17:00 08/03/16 09:56 Nicoderm Patch - TD 21 mg DAILY [facility] Administration ASSESSMENT/PLAN: 45 yo female with h/o ?mitral regurgitation s/p valve replacement on coumadin, DM, asthma, COPD admitted to the ICU for supratherapeutic level of INR (9.35) and possible upper GI bleed likely 2/2 NSAID use. ID - elevated WBC likely 2/2 hemoconcentration * trending down - no sign of infection, observe off abx Pulm - cont. tudorza 1 puff BID - cont. ventolin 2 puff Q4 Cardio - no active chest pain - INR infratherapeutic now - will bridge heparin to coumadin after EGD GI - likely upper GIB 2/2 NSAID use on top of coumadin - endoscopy scheduled at 3pm - cont. IVF - cont. PPI drip Renal/ - normal kidney function and electrolytes Heme - transfuse 3 FF, VitK and 2 units of PRBC - Hgb > 8 now * will cont. to monitor H&H Endo - on sliding scale - BGM Prophylaxis - DVT: heparin to coumadin after EGD - GI: protonix Nutrition - NPO Dispo: cont. to monitor in ICU after EGD, then may transfer back to the floor. Visit type - Emergency Visit Emergency Visit: No - New Patient This patient is new to me today: No - Critical Care Critical Care patient: Yes Total Critical Care Time (in minutes): 35 Critical Care Statement: The care of this patient involved high complexity decision making to prevent further life threatening deterioration of the patient 's condition and/or to evalute & treat vital organ system(s) failure or risk of failure.
[2016-08-03] MEDS ORDERED: PROPOFOL 20 ML ONE ×2 (15:14)
[2016-08-03] MEDS: HEPARIN INFUSION - 500 ML IVPB SCH ×2 (16:34→21:39)
--- NOTE | 2016-08-03 16:36 | PN ---
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 Resume heparin drip Start Low Na diabetic diet
--- NOTE | 2016-08-03 21:32 | PN ---
Progress Note (short form) - Note Progress Note: CC: supratherapeutic INR S: EGD today, no source identified. pt still with sob, but energy improved. no cp, palps. Current Medications Aclidinium [place] (Tudorza -) 1 puff IH BID [facility] Last Admin: 08/03/16 09:56 Dose: 1 inh Albuterol Sulfate (Ventolin Hfa Inhaler -) 2 puff IH Q4H PRN PRN Reason: SHORT OF BREATH/WHEEZING Chlorhexidine Gluconate (Hibiclens For Decolonization -) 1 applic TP HS [facility] Last Admin: 08/02/16 22:34 Dose: 1 applic Heparin Sodium (Porcine) (Heparin -) 5,000 unit IVPUSH PRN PRN Heparin Sodium (Porcine) (Heparin -) 1,000 unit IVPUSH PRN PRN Sodium Chloride (Normal Saline -) 1,000 mls @ 100 mls/hr IV ASDIR [facility] Last Admin: 08/03/16 14:39 Dose: 100 mls/hr Pantoprazole Sodium 80 mg/ (Sodium Chloride) 100 mls @ 10 mls/hr IVPB Q10H [facility] PRN Reason: 8 MG/HR Last Admin: 08/03/16 18:25 Dose: 10 mls/hr Heparin Sodium/Dextrose (Heparin Infusion -) 500 mls @ 20 mls/hr IVPB TITR [facility] ; 1,000 UNITS/HR PRN Reason: Protocol Last Admin: 08/03/16 16:34 Dose: 20 mls/hr Insulin Aspart (Novolog Vial Sliding Scale -) 1 vial SQ ACHS [facility] PRN Reason: Protocol Last Admin: 08/03/16 16:38 Dose: Not Given Mupirocin (Bactroban Ointment (For Decolonization) -) 1 applic NS BID [facility] Stop: 08/07/16 21:59 Last Admin: 08/03/16 09:56 Dose: 1 applic Nicotine (Nicoderm Patch -) 21 mg TD DAILY [facility] Last Admin: 08/03/16 09:56 Dose: 21 mg Vital Signs - 24 hr 08/02/16 08/03/16 08/03/16 23:00 01:00 03:00 Temperature 98.9 F 98.4 F Pulse Rate 82 87 80 Respiratory 22 23 18 Rate Blood Pressure 83/73 101/62 103/57 O2 Sat by Pulse Oximetry (%) 08/03/16 08/03/16 08/03/16 05:00 07:00 09:23 Temperature 98.2 F Pulse Rate 81 79 80 Respiratory 16 17 23 Rate Blood Pressure 95/64 96/60 94/51 O2 Sat by Pulse 96 Oximetry (%) 08/03/16 08/03/16 08/03/16 11:45 14:09 16:06 Temperature 97.1 F L Pulse Rate 80 99 H 91 H Respiratory 22 18 26 H Rate Blood Pressure 102/61 112/81 95/82 O2 Sat by Pulse Oximetry (%) 08/03/16 08/03/16 18:01 20:00 Temperature 98.1 F Pulse Rate 98 H 91 H Respiratory 23 22 Rate Blood Pressure 114/67 96/81 O2 Sat by Pulse Oximetry (%) Intake & Output 08/01/16 08/02/16 08/03/16 08/04/16 07:59 07:59 07:59 07:59 Intake Total 2134 650 Output Total 300 Balance 2134 350 Weight 157 lb NAD, calm MMM, no xanthelasmas jvd flat, neck supple ctab, nl effort rrr nl s1, s2 2/6 high pitched murmur at apex with mechanical click. 2/6 soft murmur at sternal border. soft nt nd abd, no hepatomegaly/splenomegaly + dp/pt, no carotid bruits no kyphosis aaox3 no jaundice, diaphoresis CBC, BMP 08/03/16 05:35 08/03/16 05:35 ekg: nsr, lvh with repolarization abnormalities tele: sr cxr: wnl echo: mild conc LVH. nl lv/rv. mechanical MV. MG 8 mmHg. mild-mod paravalvular MR (may be underestimated). [facility] AVR-MG 26. mod tr. rvsp 30-40 45 smoker with h/o mechanical MVR and ?possible mechanical AVR (at [facility]-pt does not recall specifics of surgery or indication) on coumadin, HTN, HL, diabetes, asthma/COPD, fibromyalgia who presents with weakness/dizziness, black tarry stools and found to have severe anemia with supratherapeutic INR. 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 Would get haptoglobin, ldh to assess for hemolysis. Currently without signs or symptoms of valvular decompensation. If causing hemolysis will likely need intervention. - Patient with mechanical MVR, needs heparin bridge to therapeutic coumadin level. (goal INR 2.5-3.5) - would request op report from pcp for details regarding surgery - ongoing anemia eval/mgm't per pmd, gi, heme HTN - currently running low off anti-hypertensives HL - ok to hold statin for now
[2016-08-03] MEDS: CHLORHEXIDINE GLUCONATE 4% CLEANSER FOR DECOLONIZATION TP SCH (21:39)
[2016-08-04 06:06] LABS: BASOPHIL 0.5 % (0-2.0); EOSINOPHIL 5.5 % (0-4.5); MCH 29.3 pg (25.7-33.7); MCHC 34.4 g/dl (32.0-36.0); MEAN CELL VOLUME 85.2 fl (80-96); NEUTROPHILS 68.6 % (42.8-82.8); PLATELET COUNT 132 K/MM3 (134-434); RDW 18.6 % (11.6-15.6)
[2016-08-04] MEDS: INSULIN SLIDING SCALE (NOVOLOG) 1 VIAL SQ SCH ×4 (06:28→22:25)
[2016-08-04] MEDS: PANTOPRAZOLE SODIUM 80 MG in SODIUM CHLORIDE 100 ML IVPB SCH (06:28)
[2016-08-04 06:51] LABS: ALBUMIN 3.3 g/dl (3.4-5.0); ANION GAP 8 (8-16); CALCIUM 7.9 mg/dL (8.5-10.1); CO2 22 mmol/L (21-32); CREATININE 0.8 mg/dL (0.55-1.02); GLUCOSE,RANDOM 111 mg/dL (74-106); LDH 329 U/L (84-246); SGOT/AST 42 U/L (15-37); SGPT/ALT 43 U/L (12-78)
[2016-08-04 06:53] LABS: ALK PHOS 71 U/L (45-117); BILIRUBIN,TOTAL 0.6 mg/dL (0.2-1.0); TOT PROT 6.7 g/dl (6.4-8.2)
--- NOTE | 2016-08-04 09:11 | PN ---
GI Progress Note Subjective: Patient feeling better. Wants to go home. Passed formed dark stool yesterday. - Objective Vital Signs: Vital Signs Temperature 97.8 F 08/04/16 02:00 Pulse Rate 90 08/04/16 06:00 Respiratory Rate 22 08/04/16 06:00 Blood Pressure 115/65 08/04/16 06:00 O2 Sat by Pulse Oximetry (%) 96 08/03/16 21:00 Constitutional: Well Nourished HENT: Yes: Normocephalic Neck: Yes: Supple Cardiovascular: Yes: Regular Rate and Rhythm Respiratory: Yes: CTA Bilaterally Gastrointestinal Inspection: Yes: WNL ...Auscultate: Yes: Normoactive Bowel Sounds ...Palpate: Yes: Soft. No: Tenderness ...Percussion: Yes: Dullness Labs: CBC, BMP 08/04/16 05:00 08/04/16 05:00 INR, PTT INR 1.21 (0.82-1.09) H 08/03/16 05:35 Fibrinogen 340.0 mg/dL (238-498) 08/03/16 05:35 Hepatic Panel Total Bilirubin 0.6 mg/dL (0.2-1.0) D 08/04/16 05:00 AST 42 U/L (15-37) H D 08/04/16 05:00 ALT 43 U/L (12-78) D 08/04/16 05:00 Alkaline Phosphatase 71 U/L (45-117) D 08/04/16 05:00 Albumin 3.3 g/dl (3.4-5.0) L 08/04/16 05:00 Assessment/Plan 45 F with above history admitted with likely upper GI bleed and profound anemia. 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 (benign) No new bleeding and Hgb now >9. Tolerating po Clean out tomorrow for colon Mon AM. R/O R colon lesion. If negative will need capsule EGD Rec: Change Protonix to 40 IVPB daily. May transfer to floor from GI POV
--- NOTE | 2016-08-04 10:12 | PN ---
Progress Note (short form) - Note Progress Note: Patient seen and examined in the ICU. Awake and alert. Denies CP or SOB. Endoscopy results noted. (+) Dark BM. On IV heparin. Intake & Output 08/01/16 08/02/16 08/03/16 08/04/16 23:59 23:59 23:59 23:59 Intake Total 724 2360 Output Total 300 Balance 724 2060 Weight 157 lb Last Vital Signs Temp Pulse Resp BP Pulse Ox 97.8 F 89 17 112/74 96 08/04/16 02:00 08/04/16 08:00 08/04/16 09:00 08/04/16 08:00 08/04/16 09:00 Active Medications Aclidinium [place] (Tudorza -) 1 puff IH BID [facility] Last Admin: 08/03/16 21:38 Dose: 1 inh Albuterol Sulfate (Ventolin Hfa Inhaler -) 2 puff IH Q4H PRN PRN Reason: SHORT OF BREATH/WHEEZING Chlorhexidine Gluconate (Hibiclens For Decolonization -) 1 applic TP HS [facility] Last Admin: 08/03/16 21:39 Dose: 1 applic Heparin Sodium (Porcine) (Heparin -) 5,000 unit IVPUSH PRN PRN Heparin Sodium (Porcine) (Heparin -) 1,000 unit IVPUSH PRN PRN Sodium Chloride (Normal Saline -) 1,000 mls @ 100 mls/hr IV ASDIR [facility] Last Admin: 08/03/16 14:39 Dose: 100 mls/hr Pantoprazole Sodium 80 mg/ (Sodium Chloride) 100 mls @ 10 mls/hr IVPB Q10H [facility] PRN Reason: 8 MG/HR Last Admin: 08/04/16 06:28 Dose: Not Given Heparin Sodium/Dextrose (Heparin Infusion -) 500 mls @ 20 mls/hr IVPB TITR [facility] ; 1,000 UNITS/HR PRN Reason: Protocol Last Titration: 08/04/16 06:50 Dose: 0 units/hr Insulin Aspart (Novolog Vial Sliding Scale -) 1 vial SQ ACHS [facility] PRN Reason: Protocol Last Admin: 08/04/16 06:28 Dose: Not Given Mupirocin (Bactroban Ointment (For Decolonization) -) 1 applic NS BID [facility] Stop: 08/07/16 21:59 Last Admin: 08/03/16 21:37 Dose: 1 applic Nicotine (Nicoderm Patch -) 21 mg TD DAILY [facility] Last Admin: 08/03/16 09:56 Dose: 21 mg Constitutional: Yes: Awake and alert Eyes: Yes: EOM Intact HENT: Yes: Normocephalic Cardiovascular: Yes: Regular Rate and Rhythm, Murmur, S1, S2 Respiratory: Yes: CTA Bilaterally Gastrointestinal: Yes: Soft, (+) BS Extremities: Yes: WNL Edema: No Neurological: Yes: Alert, Oriented Labs: Laboratory Results - last 24 hr 08/02/16 08/03/16 08/03/16 18:22 06:18 14:00 WBC RBC Hgb Hct MCV MCHC RDW Plt Count MPV Neutrophils % Lymphocytes % Monocytes % Eosinophils % Basophils % PTT (Actin FS) Sodium Potassium Chloride Carbon Dioxide Anion Gap BUN Creatinine Creat Clearance w eGFR POC Glucometer 123.01888 147.58360 Random Glucose Calcium Total Bilirubin AST ALT Alkaline Phosphatase LD Total Total Protein Albumin Urine HCG, Qual Negative Stool Occult Blood 08/03/16 08/03/16 08/03/16 21:35 22:00 22:30 WBC RBC Hgb Hct MCV MCHC RDW Plt Count MPV Neutrophils % Lymphocytes % Monocytes % Eosinophils % Basophils % PTT (Actin FS) 189.3 H D Sodium Potassium Chloride Carbon Dioxide Anion Gap BUN Creatinine Creat Clearance w eGFR POC Glucometer 154.61643 Random Glucose Calcium Total Bilirubin AST ALT Alkaline Phosphatase LD Total Total Protein Albumin Urine HCG, Qual Stool Occult Blood Positive 08/04/16 08/04/16 08/04/16 05:00 05:00 05:00 WBC 11.0 H RBC 3.11 L Hgb 9.1 L Hct 26.5 L MCV 85.2 MCHC 34.4 RDW 18.6 H Plt Count 132 L D MPV 9.0 Neutrophils % 68.6 Lymphocytes % 16.1 Monocytes % 9.3 Eosinophils % 5.5 H Basophils % 0.5 PTT (Actin FS) 127.1 H D Sodium 141 Potassium 3.7 Chloride 111 H Carbon Dioxide 22 Anion Gap 8 BUN 7 D Creatinine 0.8 Creat Clearance w eGFR > 60 POC Glucometer Random Glucose 111 H Calcium 7.9 L Total Bilirubin 0.6 D AST 42 H D ALT 43 D Alkaline Phosphatase 71 D LD Total 329 H Total Protein 6.7 Albumin 3.3 L Urine HCG, Qual Stool Occult Blood Problem List - Problems (1) COPD (chronic obstructive pulmonary disease) Code(s): J44.9 - CHRONIC OBSTRUCTIVE PULMONARY DISEASE, UNSPECIFIED (2) Diabetes Code(s): E11.9 - TYPE 2 DIABETES MELLITUS WITHOUT COMPLICATIONS Qualifiers: Diabetes mellitus type: type 2 (3) GI bleed Code(s): K92.2 - GASTROINTESTINAL HEMORRHAGE, UNSPECIFIED (5) HLD (hyperlipidemia) Code(s): E78.5 - HYPERLIPIDEMIA, UNSPECIFIED (6) HTN (hypertension) Code(s): I10 - ESSENTIAL (PRIMARY) HYPERTENSION (7) Supratherapeutic INR Code(s): R79.1 - ABNORMAL COAGULATION PROFILE Assessment/Plan -O2 for sat >92% -Hgb transfusion for goal >7.0 -IV Heparin per protocol -PO as tolerated -ICU monitoring -PPI per GI -[place] -No smoking -Telemetry monitoring Dr Grayson CCTime 35"
[2016-08-04] MEDS: NICOTINE 21 MG/24 HOURS TOPICAL PATCH TD SCH (10:18)
[2016-08-04] MEDS: MUPIROCIN 2% TOPICAL OINTMENT FOR DECOLONIZATION NS SCH ×2 (10:19→22:21)
[2016-08-04] MEDS: ACLIDINIUM BROMIDE 400 MCG/INH AERO.POWD IH SCH ×2 (10:19→22:22)
--- NOTE | 2016-08-04 12:45 | PN ---
Progress Note (short form) - Note Progress Note: S: no cp palps dizzy sob, wants to go home o: Vital Signs Period Temp Pulse Resp BP Sys/Galaviz Pulse Ox Last 24 Hr 97.1 F-98.1 F 86-99 17-26 95-115/64-82 96-96 NAD, calm jvd flat, neck supple ctab, nl effort rrr nl s1, s2 2/6 high pitched murmur at apex with mechanical click. 2/6 soft murmur at sternal border. aaox3 no jaundice, diaphoresis Current Medications Generic Name Dose Route Start Last Admin Trade Name Freq PRN Reason Stop Dose Admin Aclidinium [place] 1 puff 08/02/16 22:00 08/04/16 10:19 Tudorza - IH 1 inh BID [facility] Administration Albuterol Sulfate 2 puff 08/02/16 13:01 Ventolin Hfa Inhaler - IH Q4H PRN SHORT OF BREATH/WHEEZING Chlorhexidine Gluconate 1 applic 08/02/16 22:00 08/03/16 21:39 Hibiclens For Decolonization - TP 1 applic HS [facility] Administration Heparin Sodium (Porcine) 5,000 unit 08/02/16 21:55 Heparin - IVPUSH PRN PRN Heparin Sodium (Porcine) 1,000 unit 08/02/16 21:55 Heparin - IVPUSH PRN PRN Sodium Chloride 1,000 mls @ 100 mls/hr 08/02/16 13:15 08/03/16 14:39 Normal Saline - IV 100 mls/hr ASDIR [facility] Administration Heparin Sodium/Dextrose 500 mls @ 20 mls/hr 08/02/16 22:00 08/04/16 06:50 Heparin Infusion - IVPB 0 units/hr TITR [facility] Titration Protocol 1,000 UNITS/HR Pantoprazole Sodium 100 mls @ 200 mls/hr 08/05/16 10:00 Protonix 40mg Ivpb (Pre-Docked) IVPB DAILY [facility] Insulin Aspart 1 vial 08/02/16 16:30 08/04/16 06:28 Novolog Vial Sliding Scale - SQ Not Given ACHS [facility] Protocol Mupirocin 1 applic 08/02/16 22:00 08/04/16 10:19 Bactroban Ointment (For Decolonization) - NS 08/07/16 21:59 1 applic BID [facility] Administration Nicotine 21 mg 08/02/16 17:00 08/04/16 10:18 Nicoderm Patch - TD 21 mg DAILY [facility] Administration CBC, BMP 08/04/16 05:00 08/04/16 05:00 tele: sr echo: mild conc LVH. nl lv/rv. mechanical MV. MG 8 mmHg. mild-mod paravalvular MR (may be underestimated). [facility] AVR-MG 26. mod tr. rvsp 30-40 a/p: 45 yo f hx smoking, mechanical MVR and mechanical AVR (at [facility]-pt does not recall specifics of surgery or indication) on coumadin, HTN, HL, diabetes, asthma/COPD, fibromyalgia who presents with weakness/dizziness, black tarry stools and found to have severe anemia with supratherapeutic INR. 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 Would get haptoglobin, ldh to assess for hemolysis. Currently without signs or symptoms of valvular decompensation. If causing hemolysis will likely need intervention. - Patient with mechanical MVR, needs heparin bridge to therapeutic coumadin level. (goal INR 2.5-3.5) - ongoing anemia eval/mgm't per pmd, gi, heme. so far egd unremarkable, planned for foc saturday HTN - currently running low off anti-hypertensives HL - ok to hold statin for now
[2016-08-04] MEDS ORDERED: ACETAMINOPHEN 325 MG TABLET (FP) PO PRN ×2 (13:31→18:09)
--- NOTE | 2016-08-04 17:37 | PN ---
Progress Note, Physician Chief Complaint: ANXIOUS TO GO HOME - Current Medication List Current Medications: Active Medications Acetaminophen (Tylenol -) 650 mg PO Q4H PRN PRN Reason: HEADACHE Last Admin: 08/04/16 13:38 Dose: 650 mg Aclidinium [place] (Tudorza -) 1 puff IH BID [facility] Last Admin: 08/04/16 10:19 Dose: 1 inh Albuterol Sulfate (Ventolin Hfa Inhaler -) 2 puff IH Q4H PRN PRN Reason: SHORT OF BREATH/WHEEZING Chlorhexidine Gluconate (Hibiclens For Decolonization -) 1 applic TP HS [facility] Last Admin: 08/03/16 21:39 Dose: 1 applic Heparin Sodium (Porcine) (Heparin -) 5,000 unit IVPUSH PRN PRN Heparin Sodium (Porcine) (Heparin -) 1,000 unit IVPUSH PRN PRN Heparin Sodium/Dextrose (Heparin Infusion -) 500 mls @ 20 mls/hr IVPB TITR [facility] ; 1,000 UNITS/HR PRN Reason: Protocol Last Titration: 08/04/16 06:50 Dose: 0 units/hr Pantoprazole Sodium (Protonix 40mg Ivpb (Pre-Docked)) 100 mls @ 200 mls/hr IVPB DAILY [facility] Insulin Aspart (Novolog Vial Sliding Scale -) 1 vial SQ ACHS [facility] PRN Reason: Protocol Last Admin: 08/04/16 13:12 Dose: Not Given Mupirocin (Bactroban Ointment (For Decolonization) -) 1 applic NS BID [facility] Stop: 08/07/16 21:59 Last Admin: 08/04/16 10:19 Dose: 1 applic Nicotine (Nicoderm Patch -) 21 mg TD DAILY [facility] Last Admin: 08/04/16 10:18 Dose: 21 mg - Objective Vital Signs: Vital Signs Temperature 98.5 F 08/04/16 14:00 Pulse Rate 88 08/04/16 14:00 Respiratory Rate 20 08/04/16 14:00 Blood Pressure 119/70 08/04/16 14:00 O2 Sat by Pulse Oximetry (%) 96 08/04/16 09:00 Constitutional: Yes: Calm Cardiovascular: Yes: WNL Respiratory: Yes: WNL Gastrointestinal: Yes: WNL Edema: No Labs: CBC, BMP 08/04/16 05:00 08/04/16 05:00 INR, PTT INR 1.21 (0.82-1.09) H 08/03/16 05:35 Fibrinogen 340.0 mg/dL (238-498) 08/03/16 05:35 Problem List - Problems (1) Diabetes Code(s): E11.9 - TYPE 2 DIABETES MELLITUS WITHOUT COMPLICATIONS Qualifiers: Diabetes mellitus type: type 2 (2) GI bleed Code(s): K92.2 - GASTROINTESTINAL HEMORRHAGE, UNSPECIFIED (4) HTN (hypertension) Code(s): I10 - ESSENTIAL (PRIMARY) HYPERTENSION (5) Supratherapeutic INR Code(s): R79.1 - ABNORMAL COAGULATION PROFILE Assessment/Plan (1) GI bleed Assessment/Plan: icu monitioring NPO protonix drip Code(s): K92.2 - GASTROINTESTINAL HEMORRHAGE, UNSPECIFIED (2) H/O prosthetic mitral valve Assessment/Plan: inr corected once etiology of bleed is known then when ok with GI will need haprin to couamdin (3) Supratherapeutic INR Assessment/Plan: s/p 4 FFP and vitamin K Code(s): R79.1 - ABNORMAL COAGULATION PROFILE (4) HTN (hypertension) Assessment/Plan: holding meds for now Code(s): I10 - ESSENTIAL (PRIMARY) HYPERTENSION (5) HLD (hyperlipidemia) Assessment/Plan: lipid profile statin on hold low hdl start fish oil lovaza once diet resumes Code(s): E78.5 - HYPERLIPIDEMIA, UNSPECIFIED (6) Diabetes Assessment/Plan: bgm sliding scale hga1c Code(s): E11.9 - TYPE 2 DIABETES MELLITUS WITHOUT COMPLICATIONS (7) COPD (chronic obstructive pulmonary disease) Assessment/Plan: bronchodilators smoking cessation Code(s): J44.9 - CHRONIC OBSTRUCTIVE PULMONARY DISEASE, UNSPECIFIED icu -> med surg patient examined [employer]DIN
[2016-08-04] MEDS ORDERED: HEPARIN INFUSION - 500 ML IVPB SCH (18:09)
[2016-08-04] MEDS ORDERED: HEPARIN NA (PORCINE) 5,000 UNITS/ML 1ML VIAL IVPUSH PRN ×4 (18:09)
[2016-08-04] MEDS ORDERED: ALBUTEROL SO4 6.7 GM HFA INHALER IH PRN (18:09)
[2016-08-04] MEDS: CHLORHEXIDINE GLUCONATE 4% CLEANSER FOR DECOLONIZATION TP SCH (22:23)
[2016-08-05] MEDS: INSULIN SLIDING SCALE (NOVOLOG) 1 VIAL SQ SCH ×4 (06:22→22:46)
[2016-08-05 08:39] LABS: MCH 29.5 pg (25.7-33.7); MCHC 34.4 g/dl (32.0-36.0); MEAN CELL VOLUME 85.8 fl (80-96); MEAN PLT VOLUME 9.1 fl (7.5-11.1); PLATELET COUNT 145 K/MM3 (134-434); RDW 18.9 % (11.6-15.6); WHITE BLOOD COUNT 10.2 K/mm3 (4.0-10.0)
[2016-08-05] MEDS ORDERED: PT OWN MED DRAWER 7, Y5N ONE (08:57)
[2016-08-05] MEDS: PANTOPRAZOLE SODIUM 100 ML IVPB SCH (09:02)
[2016-08-05] MEDS: ACLIDINIUM BROMIDE 400 MCG/INH AERO.POWD IH SCH ×2 (09:02→22:43)
[2016-08-05] MEDS: MUPIROCIN 2% TOPICAL OINTMENT FOR DECOLONIZATION NS SCH ×2 (09:03→22:46)
[2016-08-05] MEDS: NICOTINE 21 MG/24 HOURS TOPICAL PATCH TD SCH (09:03)
[2016-08-05] MEDS ORDERED: PANTOPRAZOLE SODIUM 100 ML IVPB SCH (10:00)
--- NOTE | 2016-08-05 10:27 | PN ---
Progress Note, Physician Chief Complaint: NO COMPLAINTS - Current Medication List Current Medications: Active Medications Acetaminophen (Tylenol -) 650 mg PO Q4H PRN PRN Reason: HEADACHE Last Admin: 08/05/16 09:00 Dose: 650 mg Aclidinium [place] (Tudorza -) 1 puff IH BID [facility] Last Admin: 08/05/16 09:02 Dose: 1 puff Albuterol Sulfate (Ventolin Hfa Inhaler -) 2 puff IH Q4H PRN PRN Reason: SHORT OF BREATH/WHEEZING Chlorhexidine Gluconate (Hibiclens For Decolonization -) 1 applic TP HS [facility] Last Admin: 08/04/16 22:23 Dose: Not Given Heparin Sodium (Porcine) (Heparin -) 5,000 unit IVPUSH PRN PRN Heparin Sodium (Porcine) (Heparin -) 1,000 unit IVPUSH PRN PRN Heparin Sodium (Porcine) (Heparin -) 1,000 unit IVPUSH PRN PRN PRN Reason: Heparin Heparin Sodium (Porcine) (Heparin -) 5,000 unit IVPUSH PRN PRN PRN Reason: Heparin Heparin Sodium/Dextrose (Heparin Infusion -) 500 mls @ 20 mls/hr IVPB TITR [facility] ; 1,000 UNITS/HR PRN Reason: Protocol Pantoprazole Sodium (Protonix 40mg Ivpb (Pre-Docked)) 100 mls @ 200 mls/hr IVPB DAILY [facility] Last Admin: 08/05/16 09:02 Dose: 200 mls/hr Insulin Aspart (Novolog Vial Sliding Scale -) 1 vial SQ ACHS [facility] PRN Reason: Protocol Last Admin: 08/05/16 06:22 Dose: Not Given Mupirocin (Bactroban Ointment (For Decolonization) -) 1 applic NS BID [facility] Stop: 08/07/16 21:59 Last Admin: 08/05/16 09:03 Dose: Not Given Nicotine (Nicoderm Patch -) 21 mg TD DAILY [facility] Last Admin: 08/05/16 09:03 Dose: 21 mg - Objective Vital Signs: Vital Signs Temperature 98.2 F 08/05/16 08:50 Pulse Rate 89 08/05/16 08:50 Respiratory Rate 18 08/05/16 08:50 Blood Pressure 121/69 08/05/16 08:50 O2 Sat by Pulse Oximetry (%) 97 08/04/16 21:00 Constitutional: Yes: Calm Cardiovascular: Yes: WNL Respiratory: Yes: WNL Gastrointestinal: Yes: WNL Edema: No Labs: CBC, BMP 08/05/16 07:15 08/04/16 05:00 INR, PTT INR 1.21 (0.82-1.09) H 08/03/16 05:35 Fibrinogen 340.0 mg/dL (238-498) 08/03/16 05:35 Problem List - Problems (1) Diabetes Code(s): E11.9 - TYPE 2 DIABETES MELLITUS WITHOUT COMPLICATIONS Qualifiers: Diabetes mellitus type: type 2 (2) GI bleed Code(s): K92.2 - GASTROINTESTINAL HEMORRHAGE, UNSPECIFIED (4) HTN (hypertension) Code(s): I10 - ESSENTIAL (PRIMARY) HYPERTENSION (5) Supratherapeutic INR Code(s): R79.1 - ABNORMAL COAGULATION PROFILE Assessment/Plan (1) GI bleed Assessment/Plan: on diet hgb stable protonix egd normal for colonoscopy 08/06 Code(s): K92.2 - GASTROINTESTINAL HEMORRHAGE, UNSPECIFIED (2) H/O prosthetic mitral valve Assessment/Plan: iv heparin once etiology of bleed is known then when ok with GI will need heparin to couamdin (3) Supratherapeutic INR Assessment/Plan: s/p 4 FFP and vitamin K Code(s): R79.1 - ABNORMAL COAGULATION PROFILE (4) HTN (hypertension) Assessment/Plan: Code(s): I10 - ESSENTIAL (PRIMARY) HYPERTENSION (5) HLD (hyperlipidemia) Assessment/Plan: lipid profile oil lovaza once diet resumes Code(s): E78.5 - HYPERLIPIDEMIA, UNSPECIFIED (6) Diabetes Assessment/Plan: bgm sliding scale hga1c Code(s): E11.9 - TYPE 2 DIABETES MELLITUS WITHOUT COMPLICATIONS (7) COPD (chronic obstructive pulmonary disease) Assessment/Plan: bronchodilators smoking cessation Code(s): J44.9 - CHRONIC OBSTRUCTIVE PULMONARY DISEASE, UNSPECIFIED [facility]
--- NOTE | 2016-08-05 11:13 | PN ---
Progress Note (short form) - Note Progress Note: s: no cp palps dizzy sob o: Vital Signs Period Temp Pulse Resp BP Sys/Galaviz Pulse Ox Last 24 Hr 98.2 F-98.8 F 88-96 18-21 119-138/65-78 97 NAD, calm jvd flat, neck supple ctab, nl effort rrr nl s1, s2 2/6 high pitched murmur at apex with mechanical click. 2/6 soft murmur at sternal border. aaox3 no jaundice, diaphoresis Current Medications Generic Name Dose Route Start Last Admin Trade Name Freq PRN Reason Stop Dose Admin Acetaminophen 650 mg 08/04/16 18:09 08/05/16 09:00 Tylenol - PO 650 mg Q4H PRN Administration HEADACHE Aclidinium [place] 1 puff 08/04/16 22:00 08/05/16 09:02 Tudorza - IH 1 puff BID [facility] Administration Albuterol Sulfate 2 puff 08/04/16 18:09 Ventolin Hfa Inhaler - IH Q4H PRN SHORT OF BREATH/WHEEZING Chlorhexidine Gluconate 1 applic 08/04/16 22:00 08/04/16 22:23 Hibiclens For Decolonization - TP Not Given HS [facility] Heparin Sodium (Porcine) 5,000 unit 08/04/16 18:09 Heparin - IVPUSH PRN PRN Heparin Sodium (Porcine) 1,000 unit 08/04/16 18:09 Heparin - IVPUSH PRN PRN Heparin Sodium (Porcine) 1,000 unit 08/04/16 18:09 Heparin - IVPUSH PRN PRN Heparin Heparin Sodium (Porcine) 5,000 unit 08/04/16 18:09 Heparin - IVPUSH PRN PRN Heparin Heparin Sodium/Dextrose 500 mls @ 20 mls/hr 08/04/16 18:09 08/05/16 10:30 Heparin Infusion - IVPB 11 mls/hr TITR [facility] Administration Protocol 1,000 UNITS/HR Pantoprazole Sodium 100 mls @ 200 mls/hr 08/05/16 10:00 08/05/16 09:02 Protonix 40mg Ivpb (Pre-Docked) IVPB 200 mls/hr DAILY [facility] Administration Insulin Aspart 1 vial 08/04/16 22:00 08/05/16 06:22 Novolog Vial Sliding Scale - SQ Not Given ACHS [facility] Protocol Mupirocin 1 applic 08/04/16 22:00 08/05/16 09:03 Bactroban Ointment (For Decolonization) - NS 08/07/16 21:59 Not Given BID [facility] Nicotine 21 mg 08/05/16 10:00 08/05/16 09:03 Nicoderm Patch - TD 21 mg DAILY [facility] Administration CBC, BMP 08/05/16 07:15 08/04/16 05:00 echo: mild conc LVH. nl lv/rv. mechanical MV. MG 8 mmHg. mild-mod paravalvular MR (may be underestimated). [facility] AVR-MG 26. mod tr. rvsp 30-40 a/p: 45 yo f hx smoking, mechanical MVR and mechanical AVR (at [facility]-pt does not recall specifics of surgery or indication) on coumadin, HTN, HL, diabetes, asthma/COPD, fibromyalgia who presents with weakness/dizziness, black tarry stools and found to have severe anemia with supratherapeutic INR. 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 Would get haptoglobin, ldh to assess for hemolysis. Currently without signs or symptoms of valvular decompensation. If causing hemolysis will likely need intervention. - Patient with mechanical MVR, needs heparin bridge to therapeutic coumadin level. (goal INR 2.5-3.5) - hgb stable since prbcs - ongoing anemia eval/mgm't per pmd, gi, heme. so far egd unremarkable, planned for foc tomorrow. HTN - stable off anti-hypertensives HL - ok to hold statin for now
--- NOTE | 2016-08-05 11:55 | PN ---
GI Progress Note Subjective: Patient without complaints No new bleeding and Hgb stable - Objective Vital Signs: Vital Signs Temperature 98.2 F 08/05/16 08:50 Pulse Rate 89 08/05/16 08:50 Respiratory Rate 18 08/05/16 08:50 Blood Pressure 121/69 08/05/16 08:50 O2 Sat by Pulse Oximetry (%) 97 08/04/16 21:00 Constitutional: Well Nourished, No Distress HENT: Yes: Normocephalic Neck: Yes: Supple Cardiovascular: Yes: Regular Rate and Rhythm Respiratory: Yes: Regular Gastrointestinal Inspection: Yes: WNL ...Auscultate: Yes: Normoactive Bowel Sounds ...Palpate: Yes: Soft. No: Tenderness Labs: CBC, BMP 08/05/16 07:15 08/04/16 05:00 INR, PTT INR 1.21 (0.82-1.09) H 08/03/16 05:35 Fibrinogen 340.0 mg/dL (238-498) 08/03/16 05:35 Hepatic Panel Total Bilirubin 0.6 mg/dL (0.2-1.0) D 08/04/16 05:00 AST 42 U/L (15-37) H D 08/04/16 05:00 ALT 43 U/L (12-78) D 08/04/16 05:00 Alkaline Phosphatase 71 U/L (45-117) D 08/04/16 05:00 Albumin 3.3 g/dl (3.4-5.0) L 08/04/16 05:00 Assessment/Plan 45 F with above history admitted with GI bleed and profound anemia. 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 (benign) No new bleeding and Hgb now >9.4 Tolerating po Clean out today for colon tomorrow AM. R/O R colon lesion. Hold heparin drip at [place] If negative will need capsule EGD Rec: Change Protonix to 40 IVPB daily.
--- NOTE | 2016-08-05 14:24 | PN ---
Progress Note (short form) - Note Progress Note: PULMONARY VSS/AFEBRILE ANICTERIC CLEAR LUNGS S1S2 SOFT NONTENDER NO EDEMA LABS/MEDS/NOTES/IMAGING REVIEWED (1) COPD (chronic obstructive pulmonary disease) Code(s): J44.9 - CHRONIC OBSTRUCTIVE PULMONARY DISEASE, UNSPECIFIED (2) Diabetes Code(s): E11.9 - TYPE 2 DIABETES MELLITUS WITHOUT COMPLICATIONS Qualifiers: Diabetes mellitus type: type 2 (3) GI bleed Code(s): K92.2 - GASTROINTESTINAL HEMORRHAGE, UNSPECIFIED (5) HLD (hyperlipidemia) Code(s): E78.5 - HYPERLIPIDEMIA, UNSPECIFIED (6) HTN (hypertension) Code(s): I10 - ESSENTIAL (PRIMARY) HYPERTENSION (7) Supratherapeutic INR Code(s): R79.1 - ABNORMAL COAGULATION PROFILE AGREE WITH CURRENT BRONCHODILATOR REGIME Jermaine ALSTON MD
[2016-08-05] MEDS: BISACODYL 5 MG TABLET.DR (FP) PO SCH ×2 (15:31→20:42)
[2016-08-05] MEDS ORDERED: POLYETHYLENE GLYCOL 3350 255 GM BTL PO ONE (16:00)
[2016-08-05] MEDS: CHLORHEXIDINE GLUCONATE 4% CLEANSER FOR DECOLONIZATION TP SCH (22:50)
[2016-08-06 07:21] LABS: BASOPHIL 0.5 % (0-2.0); EOSINOPHIL 3.1 % (0-4.5); MCH 28.9 pg (25.7-33.7); MCHC 33.8 g/dl (32.0-36.0); MEAN CELL VOLUME 85.5 fl (80-96); MEAN PLT VOLUME 8.5 fl (7.5-11.1); PLATELET COUNT 176 K/MM3 (134-434); RDW 18.7 % (11.6-15.6); WHITE BLOOD COUNT 9.5 K/mm3 (4.0-10.0)
[2016-08-06 07:59] LABS: ALBUMIN 3.8 g/dl (3.4-5.0); ANION GAP 12 (8-16); BILIRUBIN,TOTAL 0.9 mg/dL (0.2-1.0); CO2 23 mmol/L (21-32); CREATININE 0.9 mg/dL (0.55-1.02); GLUCOSE,RANDOM 123 mg/dL (74-106); SGOT/AST 43 U/L (15-37); SGPT/ALT 51 U/L (12-78); TOT PROT 7.4 g/dl (6.4-8.2)
[2016-08-06 08:00] LABS: ALK PHOS 83 U/L (45-117)
[2016-08-06] MEDS: INSULIN SLIDING SCALE (NOVOLOG) 1 VIAL SQ SCH ×3 (08:19→17:31)
--- NOTE | 2016-08-06 09:00 | PN ---
Progress Note, Physician Chief Complaint: anxious to go home upset bc did not go down for gi test in am - Current Medication List Current Medications: Active Medications Acetaminophen (Tylenol -) 650 mg PO Q4H PRN PRN Reason: HEADACHE Last Admin: 08/05/16 09:00 Dose: 650 mg Aclidinium [place] (Tudorza -) 1 puff IH BID [facility] Last Admin: 08/05/16 22:43 Dose: 1 puff Albuterol Sulfate (Ventolin Hfa Inhaler -) 2 puff IH Q4H PRN PRN Reason: SHORT OF BREATH/WHEEZING Chlorhexidine Gluconate (Hibiclens For Decolonization -) 1 applic TP HS [facility] Last Admin: 08/05/16 22:50 Dose: Not Given Heparin Sodium (Porcine) (Heparin -) 5,000 unit IVPUSH PRN PRN Heparin Sodium (Porcine) (Heparin -) 1,000 unit IVPUSH PRN PRN Heparin Sodium (Porcine) (Heparin -) 1,000 unit IVPUSH PRN PRN PRN Reason: Heparin Heparin Sodium (Porcine) (Heparin -) 5,000 unit IVPUSH PRN PRN PRN Reason: Heparin Heparin Sodium/Dextrose (Heparin Infusion -) 500 mls @ 20 mls/hr IVPB TITR [facility] ; 1,000 UNITS/HR PRN Reason: Protocol Last Admin: 08/05/16 10:30 Dose: 11 mls/hr Pantoprazole Sodium (Protonix 40mg Ivpb (Pre-Docked)) 100 mls @ 200 mls/hr IVPB DAILY [facility] Last Admin: 08/05/16 09:02 Dose: 200 mls/hr Insulin Aspart (Novolog Vial Sliding Scale -) 1 vial SQ ACHS [facility] PRN Reason: Protocol Last Admin: 08/06/16 08:19 Dose: Not Given Mupirocin (Bactroban Ointment (For Decolonization) -) 1 applic NS BID [facility] Stop: 08/07/16 21:59 Last Admin: 08/05/16 22:46 Dose: Not Given Nicotine (Nicoderm Patch -) 21 mg TD DAILY [facility] Last Admin: 08/05/16 09:03 Dose: 21 mg - Objective Vital Signs: Vital Signs Temperature 98.4 F 08/06/16 07:18 Pulse Rate 87 08/06/16 07:18 Respiratory Rate 16 08/06/16 07:18 Blood Pressure 129/76 08/06/16 07:18 O2 Sat by Pulse Oximetry (%) 98 08/05/16 21:00 Constitutional: Yes: Calm Cardiovascular: Yes: WNL Respiratory: Yes: WNL Gastrointestinal: Yes: WNL Edema: No Labs: CBC, BMP 08/06/16 06:00 08/06/16 06:00 INR, PTT INR 1.21 (0.82-1.09) H 08/03/16 05:35 Fibrinogen 340.0 mg/dL (238-498) 08/03/16 05:35 Problem List - Problems (1) Diabetes Code(s): E11.9 - TYPE 2 DIABETES MELLITUS WITHOUT COMPLICATIONS Qualifiers: Diabetes mellitus type: type 2 (2) GI bleed Code(s): K92.2 - GASTROINTESTINAL HEMORRHAGE, UNSPECIFIED (4) HTN (hypertension) Code(s): I10 - ESSENTIAL (PRIMARY) HYPERTENSION (5) Supratherapeutic INR Code(s): R79.1 - ABNORMAL COAGULATION PROFILE Assessment/Plan (1) GI bleed Assessment/Plan: on diet hgb stable protonix egd normal for colonoscopy 08/06 Code(s): K92.2 - GASTROINTESTINAL HEMORRHAGE, UNSPECIFIED (2) H/O prosthetic mitral valve Assessment/Plan: iv heparin once etiology of bleed is known then when ok with GI will need heparin to couamdin (3) Supratherapeutic INR Assessment/Plan: s/p 4 FFP and vitamin K Code(s): R79.1 - ABNORMAL COAGULATION PROFILE (4) HTN (hypertension) Assessment/Plan: Code(s): I10 - ESSENTIAL (PRIMARY) HYPERTENSION (5) HLD (hyperlipidemia) Assessment/Plan: lipid profile oil lovaza once diet resumes Code(s): E78.5 - HYPERLIPIDEMIA, UNSPECIFIED (6) Diabetes Assessment/Plan: bgm sliding scale hga1c Code(s): E11.9 - TYPE 2 DIABETES MELLITUS WITHOUT COMPLICATIONS (7) COPD (chronic obstructive pulmonary disease) Assessment/Plan: bronchodilators smoking cessation Code(s): J44.9 - CHRONIC OBSTRUCTIVE PULMONARY DISEASE, UNSPECIFIED 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
[2016-08-06] MEDS ORDERED: POTASSIUM CHLORIDE TABS 20 MEQ TABLET.ER (FP) PO ONE (10:00)
[2016-08-06] MEDS: ACLIDINIUM BROMIDE 400 MCG/INH AERO.POWD IH SCH (10:05)
[2016-08-06] MEDS: PANTOPRAZOLE SODIUM 100 ML IVPB SCH (10:05)
[2016-08-06] MEDS: NICOTINE 21 MG/24 HOURS TOPICAL PATCH TD SCH (10:05)
--- NOTE | 2016-08-06 10:17 | PN ---
Progress Note (short form) - Note Progress Note: s: no cp palps dizzy sob o: Vital Signs Period Temp Pulse Resp BP Sys/Galaviz Pulse Ox Last 24 Hr 98.2 F-98.8 F 88-96 18-21 119-138/65-78 97 NAD, calm jvd flat, neck supple ctab, nl effort rrr nl s1, s2 2/6 high pitched murmur at apex with mechanical click. 2/6 soft murmur at sternal border. aaox3 no jaundice, diaphoresis Current Medications Generic Name Dose Route Start Last Admin Trade Name Freq PRN Reason Stop Dose Admin Acetaminophen 650 mg 08/04/16 18:09 08/05/16 09:00 Tylenol - PO 650 mg Q4H PRN Administration HEADACHE Aclidinium [place] 1 puff 08/04/16 22:00 08/05/16 09:02 Tudorza - IH 1 puff BID [facility] Administration Albuterol Sulfate 2 puff 08/04/16 18:09 Ventolin Hfa Inhaler - IH Q4H PRN SHORT OF BREATH/WHEEZING Chlorhexidine Gluconate 1 applic 08/04/16 22:00 08/04/16 22:23 Hibiclens For Decolonization - TP Not Given HS [facility] Heparin Sodium (Porcine) 5,000 unit 08/04/16 18:09 Heparin - IVPUSH PRN PRN Heparin Sodium (Porcine) 1,000 unit 08/04/16 18:09 Heparin - IVPUSH PRN PRN Heparin Sodium (Porcine) 1,000 unit 08/04/16 18:09 Heparin - IVPUSH PRN PRN Heparin Heparin Sodium (Porcine) 5,000 unit 08/04/16 18:09 Heparin - IVPUSH PRN PRN Heparin Heparin Sodium/Dextrose 500 mls @ 20 mls/hr 08/04/16 18:09 08/05/16 10:30 Heparin Infusion - IVPB 11 mls/hr TITR [facility] Administration Protocol 1,000 UNITS/HR Pantoprazole Sodium 100 mls @ 200 mls/hr 08/05/16 10:00 08/05/16 09:02 Protonix 40mg Ivpb (Pre-Docked) IVPB 200 mls/hr DAILY [facility] Administration Insulin Aspart 1 vial 08/04/16 22:00 08/05/16 06:22 Novolog Vial Sliding Scale - SQ Not Given ACHS [facility] Protocol Mupirocin 1 applic 08/04/16 22:00 08/05/16 09:03 Bactroban Ointment (For Decolonization) - NS 08/07/16 21:59 Not Given BID [facility] Nicotine 21 mg 08/05/16 10:00 08/05/16 09:03 Nicoderm Patch - TD 21 mg DAILY [facility] Administration CBC, BMP 08/05/16 07:15 08/04/16 05:00 echo: mild conc LVH. nl lv/rv. mechanical MV. MG 8 mmHg. mild-mod paravalvular MR (may be underestimated). [facility] AVR-MG 26. mod tr. rvsp 30-40 a/p: 45 yo f hx smoking, mechanical MVR and mechanical AVR (at [facility]-pt does not recall specifics of surgery or indication) on coumadin, HTN, HL, diabetes, asthma/COPD, fibromyalgia who presents with weakness/dizziness, black tarry stools and found to have severe anemia with supratherapeutic INR. 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 Would get haptoglobin, ldh to assess for hemolysis. Currently without signs or symptoms of valvular decompensation. If causing hemolysis will likely need intervention. - Patient with mechanical MVR, needs heparin bridge to therapeutic coumadin level. (goal INR 2.5-3.5) - hgb stable since prbcs - ongoing anemia eval/mgm't per pmd, gi, heme. so far egd unremarkable, planned for foc tomorrow. HTN - stable off anti-hypertensives HL - ok to hold statin for now
--- NOTE | 2016-08-06 10:19 | PN ---
Progress Note (short form) - Note Progress Note: s: no cp palps dizzy sob o: Vital Signs Period Temp Pulse Resp BP Sys/Galaviz Pulse Ox Last 24 Hr 97.8 F-98.4 F 82-88 16-18 114-136/68-89 98 NAD, calm jvd flat, neck supple ctab, nl effort rrr nl s1, s2 2/6 high pitched murmur at apex with mechanical click. 2/6 soft murmur at sternal border. aaox3 no jaundice, diaphoresis Current Medications Generic Name Dose Route Start Last Admin Trade Name Freq PRN Reason Stop Dose Admin Acetaminophen 650 mg 08/04/16 18:09 08/05/16 09:00 Tylenol - PO 650 mg Q4H PRN Administration HEADACHE Aclidinium [place] 1 puff 08/04/16 22:00 08/06/16 10:05 Tudorza - IH 1 puff BID [facility] Administration Albuterol Sulfate 2 puff 08/04/16 18:09 Ventolin Hfa Inhaler - IH Q4H PRN SHORT OF BREATH/WHEEZING Heparin Sodium (Porcine) 5,000 unit 08/04/16 18:09 Heparin - IVPUSH PRN PRN Heparin Sodium (Porcine) 1,000 unit 08/04/16 18:09 Heparin - IVPUSH PRN PRN Heparin Sodium (Porcine) 1,000 unit 08/04/16 18:09 Heparin - IVPUSH PRN PRN Heparin Heparin Sodium (Porcine) 5,000 unit 08/04/16 18:09 Heparin - IVPUSH PRN PRN Heparin Heparin Sodium/Dextrose 500 mls @ 20 mls/hr 08/04/16 18:09 08/05/16 10:30 Heparin Infusion - IVPB 11 mls/hr TITR [facility] Administration Protocol 1,000 UNITS/HR Pantoprazole Sodium 100 mls @ 200 mls/hr 08/05/16 10:00 08/06/16 10:05 Protonix 40mg Ivpb (Pre-Docked) IVPB 200 mls/hr DAILY [facility] Administration Insulin Aspart 1 vial 08/04/16 22:00 08/06/16 08:19 Novolog Vial Sliding Scale - SQ Not Given ACHS [facility] Protocol Nicotine 21 mg 08/05/16 10:00 08/06/16 10:05 Nicoderm Patch - TD 21 mg DAILY [facility] Administration CBC, BMP 08/06/16 06:00 08/06/16 06:00 echo: mild conc LVH. nl lv/rv. mechanical MV. MG 8 mmHg. mild-mod paravalvular MR (may be underestimated). [facility] AVR-MG 26. mod tr. rvsp 30-40 a/p: 45 yo f hx smoking, mechanical MVR and mechanical AVR (at [facility]-pt does not recall specifics of surgery or indication) on coumadin, HTN, HL, diabetes, asthma/COPD, fibromyalgia who presents with weakness/dizziness, black tarry stools and found to have severe anemia with supratherapeutic INR. mechanical AVR/MVR, anemia/gib: - echo with mild-mod paravalvular mr and increased mean gradient suggestive of valve dysfunction which could cause hemolytic anemia, however here with INR in 9s and melena so GIB seems more likely cause of current anemia. Currently without signs or symptoms of valvular decompensation. - egd w/o source, planned for foc today. Planned for outpt capsule study if foc w/o source - hgb stable since prbcs - Patient with mechanical MVR, needs heparin bridge (or lovenox) to therapeutic coumadin level. (goal INR 2.5-3.5) HTN - stable off anti-hypertensives HL - stable
[2016-08-06] MEDS ORDERED: LIDOCAINE HCL/PF 1% SDV 5ML VIAL ONE (14:08)
[2016-08-06] MEDS ORDERED: PROPOFOL 20 ML ONE (14:08)
--- NOTE | 2016-08-06 15:36 | PN ---
Progress Note (short form) - Note Progress Note: ADDENDUM: S/P COLONOSCOPY NORMAL EXAM OTHER THAN SMALL POLYP IN THE RECTUM NO EVIDENCE OF BLEEDING REC: RESUME AC RESUME DIET CAN D/C WITH F/U WILL SCHEDULE CAPSULE ENDOSCOPY
[2016-08-06 15:58] VITALS: PULSE 89
--- NOTE | 2016-08-06 16:47 | DS ---
Physical Examination Vital Signs: Vital Signs Temperature 99 F 08/06/16 15:16 Pulse Rate 89 08/06/16 15:57 Respiratory Rate 18 08/06/16 15:57 Blood Pressure 111/67 08/06/16 15:57 O2 Sat by Pulse Oximetry (%) 100 08/06/16 15:57 Cardiovascular: Yes: WNL Respiratory: Yes: WNL Gastrointestinal: Yes: WNL Edema: No Labs: CBC, BMP 08/06/16 06:00 08/06/16 06:00 Discharge Summary Reason For Visit: GASTROINTESTINAL HEMORRHAGE,ANEMIA Current Active Problems COPD (chronic obstructive pulmonary disease) (Acute) Diabetes (Acute) GI bleed (Acute) H/O prosthetic mitral valve (Acute) HLD (hyperlipidemia) (Acute) HTN (hypertension) (Acute) Supratherapeutic INR (Acute) Hospital Course: (1) GI bleed Assessment/Plan: on diet hgb stable protonix egd & colonoscopy done Code(s): K92.2 - GASTROINTESTINAL HEMORRHAGE, UNSPECIFIED (2) H/O prosthetic mitral valve Assessment/Plan: iv heparin once etiology of bleed is known -> to start ac (3) Supratherapeutic INR Assessment/Plan: s/p 4 FFP and vitamin K Code(s): R79.1 - ABNORMAL COAGULATION PROFILE (4) HTN (hypertension) Assessment/Plan: Code(s): I10 - ESSENTIAL (PRIMARY) HYPERTENSION (5) HLD (hyperlipidemia) Assessment/Plan: lipid profile oil lovaza once diet resumes Code(s): E78.5 - HYPERLIPIDEMIA, UNSPECIFIED (6) Diabetes Assessment/Plan: bgm sliding scale hga1c Code(s): E11.9 - TYPE 2 DIABETES MELLITUS WITHOUT COMPLICATIONS (7) COPD (chronic obstructive pulmonary disease) Assessment/Plan: bronchodilators smoking cessation Code(s): J44.9 - CHRONIC OBSTRUCTIVE PULMONARY DISEASE, UNSPECIFIED APPRECIATE GI CONSULT OK TO RESTART AC ON IV HEPARIN -> CHANGE TO LOVENOX + WARFARIN BRIDGE PATIENT THREATENING TO LEAVE AMA 07/19 PERSONAL/CHILDCARE PROBLEM HAS APPT WITH PCP 08/07 -> PROMISES TO NOT MISS APPOINTMENT PROMISES TO GIVE SELF INJECTION -> TRAINED BY TAX MANAGER CPA RETURN TO HOSPITAL IF BLEED or CANNOT TAKE AC BUSINESS 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 FM Condition: Stable - Instructions Referrals: Saul Santana [Primary Care Provider] - Disposition: HOME - Home Medications Comprehensive Discharge Medication List: Ambulatory Orders Warfarin Na [Coumadin] 7 mg PO HS 09/05/12 Albuterol Sulfate [Proair Respiclick] 90 mcg IH DAILY 08/02/16 Amlodipine Besylate 5 mg PO DAILY 08/02/16 Atorvastatin Ca [Lipitor] 40 mg PO HS 08/02/16 Diphenhydramine [Benadryl -] 25 mg PO ASDIR 08/02/16 Gabapentin 300 mg PO DAILY 08/02/16 Linaclotide [Linzess] 145 mcg PO DAILY 08/02/16 Mirtazapine [Remeron -] 15 mg PO DAILY 08/02/16 Olmesartan Medoxomil [Benicar (Nf)] 40 mg PO DAILY 08/02/16 Tiotropium [place] [Spiriva] 1 inh PO DAILY 08/02/16 Tramadol HCl 50 mg PO DAILY 08/02/16
[2016-08-06 18:01] VITALS: BP 122/76; TEMP 97.9
[2016-08-06] MEDS ORDERED: ENOXAPARIN NA (PORCINE) 80 MG/0.8 ML DISP.SYRIN SQ ONE (19:00)
--- NOTE | 2016-08-07 12:33 | PATH ---
Surgical Pathology Report Patient Name: GERARDO POOL [facility]. Rec. #: [id number] /Age/Gender: 1970 (Age: 45) / F Account: [id number] Location: [facility] MED/SURG Taken: 08/03/2016 Received: 08/06/2016 Reported: 08/07/2016 Physicians: Neftaly Barton M.D. 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 NO MALIGNANCY IDENTIFIED IN THE EXAMINED MATERIAL. Electronically Signed Vikash Maxwell M.D. Gross Description Received in formalin, labeled "biopsy duodenal bulb" are 3 chao, irregular portions of soft tissue ranging from 0.1-0.2 cm. in greatest dimension. The specimens are submitted in toto in one cassette. 08/06/201608/06/2016
--- NOTE | 2016-08-08 13:03 | PATH ---
Surgical Pathology Report Patient Name: GERARDO POOL [facility]. Rec. #: [id number] /Age/Gender: 1970 (Age: 45) / F Account: [id number] Location: [facility] MED/SURG Taken: 08/06/2016 Received: 08/07/2016 Reported: 08/08/2016 Physicians: Neftaly Barton M.D. Specimen(s) Received BX RECTAL POLYP Clinical History GI bleed Final Diagnosis RECTUM, POLYP, BIOPSY: HYPERPLASTIC POLYP. Electronically Signed Vikash Maxwell M.D. Gross Description Received in formalin, labeled "biopsy rectal polyp" is a chao, irregular portion of soft tissue measuring 0.3 cm in greatest dimension. The specimen is submitted in toto in one cassette. /08/07/201608/07/2016
[2016-08-10 00:06] LABS: SERUM IRON 133 ug/dL (27-159); TOTAL IRON BINDING CAPACITY 321 ug/dL (250-450); UIBC 188 ug/dL (131-425)
== END 2016-08-06 18:37 | disposition home or self-care (01) | DRG 253 ==
LOC: JER 09:26 → JERBED 10:57 → JICU 14:32 → J8W 08-04 19:12
PROVIDERS: ADMIT Student in an Organized Health Care Education/Training Program; ATTEND Student in an Organized Health Care Education/Training Program
PROC: 30233L1 Transfusion of Nonautologous Fresh Plasma into Peripheral Vein, Percutaneous Approach (ICD-10-PCS; principal; 2016-08-02)
PROC: 30233N1 Transfusion of Nonautologous Red Blood Cells into Peripheral Vein, Percutaneous Approach (ICD-10-PCS; 2016-08-02)
PROC: 0DJ08ZZ Inspection of Upper Intestinal Tract, Via Natural or Artificial Opening Endoscopic (ICD-10-PCS; 2016-08-03)
PROC: 0DBE8ZX Excision of Large Intestine, Via Natural or Artificial Opening Endoscopic, Diagnostic (ICD-10-PCS; 2016-08-06)
DX: K92.2 Gastrointestinal hemorrhage, unspecified (principal); D64.9 Anemia, unspecified; E11.9 Type 2 diabetes mellitus without complications; J45.909 Unspecified asthma, uncomplicated; J44.9 Chronic obstructive pulmonary disease, unspecified; Z95.2 Presence of prosthetic heart valve; I10 Essential (primary) hypertension; E78.5 Hyperlipidemia, unspecified; F17.210 Nicotine dependence, cigarettes, uncomplicated; M79.7 Fibromyalgia; G89.29 Other chronic pain; R79.1 Abnormal coagulation profile; Z79.01 Long term (current) use of anticoagulants; K63.5 Polyp of colon
CPT/HCPCS: 36415; 36430; 71010-TC; 80053; 80061; 81003; 81015; 82272; 82550; 82728; 83010; 83036; 83540; 83550; 83615; 83721; 84484; 84703; 85025; 85027; 85384; 85610; 85730; 86850; 86900; 86901; 86922; 87086; 87186; 87340; 88305-TC; 90732; 93005; 93010; 93306-TC; 99285-25; G0009; J1644; P9017; P9038; P9058

== ENCOUNTER → 2018-08-21 | Emergency (ER) | payer OTHER ==
[~2018-08-21] MED LIST: ACETAMINOPHEN 325 MG TABLET (FP) ONE; ACETAMINOPHEN 325 MG TABLET (FP) PO ONE
[2018-08-21 13:13] VITALS: TEMP 98.2; BMI 29.5
--- NOTE | 2018-08-21 14:39 | PDOC ---
History of Present Illness - General Chief Complaint: Pain Stated Complaint: STOMACH / BACK PAIN Time Seen by Provider: 08/21/18 13:53 History Source: Patient Exam Limitations: No Limitations - History of Present Illness Initial Comments: 08/21/18 16:42 Patient is a 47-year-old female with past medical history of 2 mechanical valves currently on Coumadin, spontaneous bleed on blood thinners in the past who presents to the ER today for an episode of dark stool and abdominal pain. She states that the abdominal pain comes and goes and it is in her upper mid abdomen. Denies nausea or vomiting. Pt also states she has been constipated for the past 4 days. She had a bowel movement today when she noticed her stool was dark and tarry. Denies BRBPR. Denies fevers, chills, weakness, dizziness, SOB on exertion, chest pain, hematuria and dysuria. Past History - Travel Traveled outside of the country in the last 30 days: No Close contact w/someone who was outside of country & ill: No - Past Medical History Allergies/Adverse Reactions: Allergies Allergy/AdvReac Type Severity Reaction Status Date / Time Penicillins Allergy Verified 08/02/16 09:28 Home Medications: Ambulatory Orders Albuterol Sulfate [Proair Respiclick] 90 mcg IH DAILY 08/02/16 Olmesartan Medoxomil [Benicar -] 40 mg PO DAILY 08/02/16 Tiotropium [place] [Spiriva] 1 inh PO DAILY 08/02/16 Acetaminophen [Tylenol .Regular Strength -] 650 mg PO Q6H PRN #0 tablet Enoxaparin Sodium [Lovenox] 70 mg SQ Q12H #10 syringe 08/06/16 Nicotine Patch [Nicoderm Patch -] 21 mg TD DAILY #30 patch 08/06/16 Warfarin Na [Coumadin -] 5 mg PO HS #14 tablet 08/06/16 Asthma: Yes Cardiac Disorders: Yes (2 VALVE REPLACEMENTS) COPD: Yes Diabetes: Yes HTN: Yes Hypercholesterolemia: Yes - Surgical History Cardiac Surgery: Yes (VALVE REPLACEMENT) - Suicide/Smoking/Psychosocial Hx Smoking Status: Yes Smoking History: Current every day smoker Have you smoked in the past 12 months: No Number of Cigarettes Smoked Daily: 10 Information on smoking cessation initiated: No 'Breaking Loose' booklet given: 08/02/16 Hx Alcohol Use: No Drug/Substance Use Hx: No Substance Use Type: None Hx Substance Use Treatment: No Review of Systems - Review of Systems Able to Perform ROS?: Yes Is the patient limited Turkish proficient: No Constitutional: No: Chills, Fever, Weakness Respiratory: No: Cough, SOB with Exertion, SOB at Rest Cardiac (ROS): No: Chest Pain, Lightheadedness, Palpitations ABD/GI: Yes: Constipated, Tarry Stools. No: Nausea, Vomiting : No: Dysuria, Frequency, Hematuria, Incontinence Musculoskeletal: No: Back Pain, Muscle Weakness, Neck Pain Neurological: No: Numbness, Paresthesia, Weakness, Dizziness All Other Systems: Reviewed and Negative *Physical Exam - Vital Signs Last Vital Signs Temp Pulse Resp BP Pulse Ox 98.2 F 85 20 103/46 L 99 08/21/18 13:09 08/21/18 13:09 08/21/18 13:09 08/21/18 13:09 08/21/18 13:09 - Physical Exam General Appearance: No: Nourished, Appropriately Dressed, Apparent Distress HEENT: positive: EOMI, LEYLA. negative: Pale Conjunctivae Respiratory/Chest: positive: Lungs Clear, Normal Breath Sounds. negative: Respiratory Distress, Accessory Muscle Use, Rhonchi, Stridor, Wheezing Cardiovascular: positive: Regular Rhythm, Regular Rate, S1, S2 (present). negative: Murmur Gastrointestinal/Abdominal: positive: Normal Bowel Sounds, Tender (epigastric), Flat, Soft. negative: Guarding, Rebound, Tenderness Musculoskeletal: negative: CVA Tenderness (R), CVA Tenderness (L) Extremity: positive: Normal Capillary Refill, Normal Inspection, Normal Range of Motion Integumentary: positive: Normal Color, Dry, Warm Neurologic: positive: Fully Oriented, Alert, Normal Mood/Affect, Normal Response Moderate Sedation - Procedure Monitoring Vital Signs: Procedure Monitoring Vital Signs Temperature 98.2 F 08/21/18 13:09 Pulse Rate 85 08/21/18 13:09 Respiratory Rate 20 08/21/18 13:09 Blood Pressure 103/46 L 08/21/18 13:09 O2 Sat by Pulse Oximetry (%) 99 08/21/18 13:09 ED Treatment Course - LABORATORY CBC & Chemistry Diagram: 08/21/18 15:00 08/21/18 15:00 Medical Decision Making - Medical Decision Making 08/21/18 16:54 Patient is a 47-year-old female with past medical history of 2 mechanical valves currently on Coumadin, spontaneous bleed on blood thinners in the past who presents to the ER today for an episode of dark stool and abdominal pain. On exam abdomen with epigastric tenderness. No back pain at this time. Patient refuses rectal exam Labs obtained, urine obtained H&H stable. Labs remarkable for PT/INR 5.7 Urine is negative for infection. Explained to patient that a rectal exam is important to evaluate for blood in the stool and potential GI bleeding. Advised her that she is at higher risk of GI bleed given a supratherapeutic INR. Patient states that she wishes to leave AMA at this time because she has to take care of her children. The patient is clinically sober, free from distracting injury, appears to have intact insight and judgment and reason and in my opinion has the capacity to make decisions. The patient presents with back pain and dark stool. I have explained that I am concerned that this may represent a GI bleed; they have verbalized an understanding of my concerns. I have told the patient that while their hemoglobin was normal, they could still have a GI bleed. I have discussed the need for rectal exam and serial H&H, INR to get more information about potential causes of the patients dark stools. I have told the patient that if they leave and have a GI bleed, they could get much worse, could become critically ill, and could possibly become disabled or . I have offered to give the patient more pain medication. I have asked them to stay in the hospital for serial H&H, INR exams. 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 She is refusing any further care and is leaving against medical advice. I am unable to convince the patient to stay, I have asked them to return as soon as possible to complete their evaluation. I have answered all their questions 08/21/18 17:[address] Santana's practice twice. Answering services states that no one is distribution accounting clerk tonight to take my call at this time. Strict return precautions given to the patient. Told patient to hold her coumadin tonight and to call Dr. Santana's office first thing in the morning. Pt understands all dc instructions. *DC/Admit/Observation/Transfer Diagnosis at time of Disposition: Dark stools, Supratherapeutic INR - Discharge Dispostion Disposition: AGAINST MEDICAL ADVICE - Referrals Referrals: Saul Santana [Primary Care Provider] - - Patient Instructions Additional Instructions: Your lab work today showed her INR was elevated at 5.7. This puts you at risk for bleeding. Your leaving AGAINST MEDICAL ADVICE. Hold her daily dose of Coumadin tonight. It is very important that you call your primary care doctor tomorrow at 9 AM. Return to the emergency department for shortness of breath, chest pain, difficulty breathing, weakness, dizziness, blood in the stool, or if you have any changes in your symptoms. - Post Discharge Activity
[2018-08-21 15:25] LABS: BASO % 0.7 % (0-2.0); EOS % 5.3 % (0-4.5); HEMATOCRIT 35.7 % (32.4-45.2); HEMOGLOBIN 12.6 GM/dL (10.7-15.3); LYMPH % 24.5 % (8-40); MCHC 35.3 g/dl (32.0-36.0); MEAN CELL VOLUME 90.5 fl (80-96); MEAN PLT VOLUME 9.6 fl (7.5-11.1); MONO % 8.9 % (3.8-10.2); NEUT % 60.6 % (42.8-82.8); PLATELET COUNT 181 K/MM3 (134-434); RBC 3.95 M/mm3 (3.60-5.2); RDW 16.2 % (11.6-15.6); WHITE BLOOD COUNT 7.6 K/mm3 (4.0-10.0)
[2018-08-21 15:39] LABS: PROTHROMBIN TIME (PATIENT) 69.2 SEC (9.7-13.0)
[2018-08-21 16:04] LABS: ALBUMIN 3.8 g/dl (3.4-5.0); ALK PHOS 95 U/L (45-117); ANION GAP 6 MMOL/L (8-16); BILIRUBIN,TOTAL 0.3 mg/dL (0.2-1); BLOOD UREA NITROGEN 10 mg/dL (7-18); CALCIUM 8.8 mg/dL (8.5-10.1); CHLORIDE 107 mmol/L (98-107); CO2 27 mmol/L (21-32); CREATININE 0.8 mg/dL (0.55-1.3); GLUCOSE,RANDOM 134 mg/dL (74-106); LIPASE 172 U/L (73-393); POTASSIUM 3.7 mmol/L (3.5-5.1); SGOT/AST 20 U/L (15-37); SGPT/ALT 23 U/L (13-61); SODIUM 139 mmol/L (136-145); TOT PROT 7.2 g/dl (6.4-8.2)
[2018-08-21 16:11] LABS: INR 5.76 (0.83-1.09)
[2018-08-21 17:09] LABS: HCG,QUALITATIVE URINE Negative
[2018-08-21 17:18] VITALS: BP 110/89; PULSE 87
[2018-08-21 17:23] LABS: URINE APPEARANCE SLCLOUDY; URINE BILIRUBIN NEGATIVE (<2.0 mg/dL); URINE COLOR YELLOW; URINE GLUCOSE (UA) NEGATIVE (NEGATIVE); URINE KETONE NEGATIVE (NEGATIVE); URINE LEUK ESTERASE NEGATIVE (NEGATIVE); URINE NITRITE NEGATIVE (NEGATIVE); URINE PROTEIN NEGATIVE (NEGATIVE)
== END | disposition left against medical advice (07) ==
LOC: JER 13:05
DX: D68.8 Other specified coagulation defects (principal); R19.5 Other fecal abnormalities; Z95.4 Presence of other heart-valve replacement; Z79.01 Long term (current) use of anticoagulants; I10 Essential (primary) hypertension; E78.00 Pure hypercholesterolemia, unspecified; E11.9 Type 2 diabetes mellitus without complications; J45.909 Unspecified asthma, uncomplicated; F17.210 Nicotine dependence, cigarettes, uncomplicated
CPT/HCPCS: 36415; 80053; 81003; 83690; 84703; 85025; 85610; 87086; 99281-25

== ENCOUNTER 2018-10-14 17:24 | Inpatient (IN) | payer OTHER ==
--- NOTE | 2018-10-14 17:42 | PDOC ---
Rapid Medical Evaluation Chief Complaint: Weakness Time Seen by Provider: 10/14/18 17:40 Medical Evaluation: Allergies Allergy/AdvReac Type Severity Reaction Status Date / Time Penicillins Allergy Verified 08/02/16 09:28 10/14/18 17:41 I have performed a brief in person evaluation at triage on this patient. CC: Weakness HPI: Pt states she has weakness with SOB and CP x 1 day. PE: Skin: clear Lungs: clear Heart: RRR MS: Moves all extremities without difficulty Neuro: Alert and oriented Psych: Appropriate affect I have ordered: CV protocol Pt will proceed to the main ED for further evaluation. Discharge Disposition - Diagnosis Chest pain Qualifiers: Chest pain type: unspecified Qualified Code(s): R07.9 - Chest pain, unspecified - Referrals - Patient Instructions - Post Discharge Activity
[2018-10-14 17:43] VITALS: BMI 28.6
--- NOTE | 2018-10-14 18:20 | PDOC ---
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 States that she had dark stools for the past day and started to take some of her iron pills after because "they helped my dark stools in the past" she then noted some central, non-radiating, exertional , non-positional, non-pleuritic chest pressure. Denies any fevers, chills, nausea, vomiting, diarrhea, or other symptoms. 10/14/18 18:23 Timing/Duration: momentarily Past History - Past Medical History Allergies/Adverse Reactions: Allergies Allergy/AdvReac Type Severity Reaction Status Date / Time Penicillins Allergy Verified 10/14/18 17:41 Home Medications: Ambulatory Orders Albuterol Sulfate [Proair Respiclick] 90 mcg IH DAILY 08/02/16 Tiotropium [place] [Spiriva] 1 inh PO DAILY 08/02/16 Acetaminophen [Tylenol .Regular Strength -] 650 mg PO Q6H PRN #0 tablet Amlodipine Besylate 5 mg PO DAILY 10/14/18 Atorvastatin Ca [Lipitor] 40 mg PO HS 10/14/18 Losartan Potassium 100 mg PO DAILY 10/14/18 Metoclopramide HCl 10 mg PO PRN PRN 10/14/18 Pregabalin [Lyrica -] 100 mg PO TID PRN 10/14/18 Warfarin Na [Coumadin -] 10 mg PO HS 10/14/18 Asthma: Yes Cardiac Disorders: Yes (2 VALVE REPLACEMENTS) COPD: Yes Diabetes: Yes HTN: Yes Hypercholesterolemia: Yes - Surgical History Cardiac Surgery: Yes (VALVE REPLACEMENT) - Suicide/Smoking/Psychosocial Hx Smoking Status: Yes Smoking History: Current every day smoker Have you smoked in the past 12 months: No Number of Cigarettes Smoked Daily: 10 Information on smoking cessation initiated: No 'Breaking Loose' booklet given: 08/02/16 Hx Alcohol Use: No Drug/Substance Use Hx: No Substance Use Type: None Hx Substance Use Treatment: No *Physical Exam - Vital Signs Last Vital Signs Temp Pulse Resp BP Pulse Ox 99.9 F H 114 H 20 112/62 100 10/14/18 17:41 10/14/18 17:41 10/14/18 17:41 10/14/18 17:41 10/14/18 17:41 - Physical Exam General Appearance: Yes: Nourished, Appropriately Dressed. No: Apparent Distress HEENT: positive: EOMI, LEYLA, Normal ENT Inspection, Normal Voice Neck: positive: Trachea midline, Normal Thyroid, Supple. negative: Tender, Rigid Respiratory/Chest: positive: Lungs Clear (decreased breath ounds bilaterally). negative: Chest Tender, Normal Breath Sounds, Respiratory Distress, Accessory Muscle Use Cardiovascular: positive: Regular Rhythm, Tachycardia. negative: Regular Rate Gastrointestinal/Abdominal: positive: Normal Bowel Sounds, Flat, Soft. negative : Tender Rectal Exam: positive: normal rectal tone, melena, heme positive stool, hemorrhoids. negative: normal exam Lymphatic: negative: Adenopathy, Tenderness Musculoskeletal: positive: Normal Inspection. negative: Decreased Range of Motion Extremity: positive: Normal Capillary Refill, Normal Inspection, Normal Range of Motion. negative: Tender Integumentary: positive: Normal Color, Dry, Warm Neurologic: positive: Fully Oriented, Alert, Normal Mood/Affect, Normal Response , Motor Strength 5/5 ED Treatment Course - LABORATORY CBC & Chemistry Diagram: 10/14/18 18:32 10/14/18 18:32 Medical Decision Making - Medical Decision Making 47 year old female on Coumadin presenting with weakness, chest pressure, and melanic stools suspicious for anemia secondary to Gi blood loss. HgB 7.3, stool occult positive, EKG non acute ( rate 109, IN 146, QRS 84, QTc 465, normal axis and mild nonspecific t wave changes in v1-v4 concerning for repol abnormalities. Troponin also 0.22. This is likely NSTEMI type 2. Type and screen sent and 2 units of blood ordered. Discussed with MELISSA Flores regarding need for FFP and we will reevaluate. 10/14/18 20:46 *DC/Admit/Observation/Transfer Diagnosis at time of Disposition: Chest pain Qualifiers: Chest pain type: unspecified Qualified Code(s): R07.9 - Chest pain, unspecified - Discharge Dispostion Condition at time of disposition: Stable Decision to Admit order: Yes - Referrals - Patient Instructions - Post Discharge Activity
[2018-10-14 18:52] LABS: BASO % 0.6 % (0-2.0); EOS % 3.1 % (0-4.5); HEMATOCRIT 21.9 % (32.4-45.2); HEMOGLOBIN 7.3 GM/dL (10.7-15.3); MCH 29.9 pg (25.7-33.7); MCHC 33.6 g/dl (32.0-36.0); MEAN CELL VOLUME 89.1 fl (80-96); MEAN PLT VOLUME 9.7 fl (7.5-11.1); MONO % 7.4 % (3.8-10.2); NEUT % 68.9 % (42.8-82.8); PLATELET COUNT 158 K/MM3 (134-434); RBC 2.46 M/mm3 (3.60-5.2); RDW 18.5 % (11.6-15.6); WHITE BLOOD COUNT 13.9 K/mm3 (4.0-10.0)
[2018-10-14 19:09] LABS: ALBUMIN 3.3 g/dl (3.4-5.0); ALK PHOS 69 U/L (45-117); ANION GAP 6 MMOL/L (8-16); BILIRUBIN,TOTAL 0.2 mg/dL (0.2-1); BLOOD UREA NITROGEN 24 mg/dL (7-18); CALCIUM 8.2 mg/dL (8.5-10.1); CHLORIDE 107 mmol/L (98-107); CO2 24 mmol/L (21-32); CREATININE 0.7 mg/dL (0.55-1.3); GLUCOSE,RANDOM 138 mg/dL (74-106); MAGNESIUM 1.8 mg/dL (1.8-2.4); SGOT/AST 23 U/L (15-37); SGPT/ALT 20 U/L (13-61); SODIUM 136 mmol/L (136-145); TOT PROT 6.3 g/dl (6.4-8.2)
[2018-10-14 19:31] LABS: PROTHROMBIN TIME (PATIENT) 101.5 SEC (9.7-13.0)
[2018-10-14 19:32] LABS: INR 8.42 (0.83-1.09)
[2018-10-14] MEDS ORDERED: diphenhydrAMINE HCL 25 MG CAPSULE (FP) PO ONE ×2 (19:41→20:22)
[2018-10-14] MEDS ORDERED: ACETAMINOPHEN 1000 MG/100 ML VIAL (NON FORMULARY) IVPB ONE (20:08)
[2018-10-14] MEDS ORDERED: ALBUTEROL SO4 2.5/IPRATROPIUM 0.5 INH SOL 3 ML VIAL.NEB. NEB ONE ×2 (20:09→20:21)
[2018-10-14] MEDS ORDERED: ACETAMINOPHEN INJECTION 100 ML IVPB ONE (20:22)
--- NOTE | 2018-10-14 21:03 | PDOC ---
Documentation entered by Shena Gonzalez SCRIBE, acting as scribe for Paula Marcos DO. Paula Marcos DO: This documentation has been prepared by the Carlos covarrubias Daisy, SCRIBE, under my direction and personally reviewed by me in its entirety. I confirm that the documentation accurately reflects all work , treatment, procedures, and medical decision making performed by me. Attending Attestation - Resident Resident Name: Kim Hatahway - ED Attending Attestation I have performed the following: I have examined & evaluated the patient, The case was reviewed & discussed with the resident, I agree w/resident's findings & plan - HPI HPI: 10/14/18 19:38 The patient is a 47YOF with a PMH of 2 mechanical valves (on Coumadin), spontaneous bleed on blood thinners, HTN, and COPD presenting with exertional chest pain and dark stool. Allergies: Penicillins Social Hx: Current everyday smoker. - Physicial Exam PE: 10/14/18 19:38 Agree with resident's exam. - Critical Care Time Total Critical Care Time: 60 Critical Care Statement: The care of this patient involved high complexity decision making to prevent further life threatening deterioration of the patient 's condition and/or to evaluate & treat vital organ system(s) failure or risk of failure. - Medical Decision Making 10/14/18 20:52 47-year-old female with history of valve replacement currently on warfarin for anticoagulation complaining of exertional chest pain/dyspnea as well as black stool Patient has a significant drop in her hemoglobin and hematocrit from previous values INR is markedly elevated at greater than 8 Stool guaiac is positive Plan for transfusion, reversal/FFP administration to be discussed with admitting team 10/14/18 21:02
[2018-10-14 21:05] LABS: LDH 426 U/L (84-246)
--- NOTE | 2018-10-14 23:13 | HP ---
Admitting History and Physical - Primary Care Physician PCP: Saul Santana - Admission Chief Complaint: Generalized Weakness, SOB, Chest Pain History of Present Illness: This is a 47 y/o woman with a past medical history of COPD, Asthma, HTN, HLD, DM , s/p Mechanical Valve x2 (on Coumadin). Who presents to the ED with generalized weakness, CP, SOB, dark stools x 1 day. Patient reports increased SOB and fatigue with non-radiating midsternal CP. Patient reports having dark stools and took iron for it. Patient denies fever, chills, cough, palpitations, AP, N/V/D, constipation, hematuria, dysuria. ER course noted for: (1) Hgb 7.3, HCT 21.9 (2) WBC 13.9 (3) Stool Occult + History Source: Patient Limitations to Obtaining History: No Limitations - Past Medical History Cardiovascular: Yes: HTN, Hyperlipdemia, Other (heart valve) Pulmonary: Yes: Asthma, COPD Gastrointestinal: Yes: GI Bleed, Other (polyp removed) ...LMP: 07/26/16 Endocrine: Yes: Diabetes Mellitus - Past Surgical History Past Surgical History: Yes: Colonoscopy, Valve Replacement - Smoking History Smoking history: Current every day smoker Have you smoked in the past 12 months: No Aproximately how many cigarettes per day: 10 - Alcohol/Substance Use Hx Alcohol Use: No History of Substance Use: reports: None - Social History Usual Living Arrangement: Yes: With Spouse, With Child ADL: Independent History of Recent Travel: No Home Medications - Allergies Allergies/Adverse Reactions: Allergies Allergy/AdvReac Type Severity Reaction Status Date / Time Penicillins Allergy Verified 10/14/18 17:41 - Home Medications Home Medications: Ambulatory Orders Albuterol Sulfate [Proair Respiclick] 90 mcg IH DAILY 08/02/16 Tiotropium [place] [Spiriva] 1 inh PO DAILY 08/02/16 Acetaminophen [Tylenol .Regular Strength -] 650 mg PO Q6H PRN #0 tablet Amlodipine Besylate 5 mg PO DAILY 10/14/18 Atorvastatin Ca [Lipitor] 40 mg PO HS 10/14/18 Losartan Potassium 100 mg PO DAILY 10/14/18 Metoclopramide HCl 10 mg PO PRN PRN 10/14/18 Pregabalin [Lyrica -] 100 mg PO TID PRN 10/14/18 Warfarin Na [Coumadin -] 10 mg PO HS 10/14/18 Family Disease History - Family Disease History Family Disease History: Heart Disease: Grandparent, Other: Mother (MS, age 18) Review of Systems - Review of Systems Constitutional: reports: Weakness Eyes: reports: No Symptoms HENT: reports: No Symptoms Neck: reports: No Symptoms Cardiovascular: reports: Chest Pain, Shortness of Breath Respiratory: reports: SOB, SOB on Exertion Gastrointestinal: reports: Abdominal Pain, Melena. denies: Nausea, Vomiting, Vomiting Blood Genitourinary: reports: No Symptoms Breasts: reports: No Symptoms Reported Integumentary: reports: No Symptoms Neurological: reports: Dizziness Endocrine: reports: No Symptoms Hematology/Lymphatic: reports: No Symptoms Psychiatric: reports: No Symptoms Pain Intensity: 5 Physical Examination Vital Signs: Vital Signs Temperature 99.9 F H 10/14/18 17:41 Pulse Rate 103 H 10/14/18 18:35 Respiratory Rate 18 10/14/18 18:35 Blood Pressure 112/62 10/14/18 17:41 O2 Sat by Pulse Oximetry (%) 99 10/14/18 18:35 Constitutional: Yes: Well Nourished, No Distress, Calm Eyes: Yes: WNL, Conjunctiva Clear (pale), EOM Intact, PERRL HENT: Yes: WNL, Atraumatic, Normocephalic Neck: Yes: WNL, Supple, Trachea Midline Cardiovascular: Yes: Regular Rate and Rhythm, Murmur, S1, S2 Respiratory: Yes: WNL, Regular, CTA Bilaterally Gastrointestinal: Yes: Soft, Hypoactive Bowel Sounds, Tenderness, Epigastrium, Other (striae) ...Rectal Exam: Yes: Guaiac Positive, Sphincter Tone Normal Renal/: Yes: WNL Breast(s): Yes: WNL Musculoskeletal: Yes: WNL Extremities: Yes: WNL Edema: No Peripheral Pulses WNL: Yes Neurological: Yes: WNL, Alert, Oriented ...Motor Strength: WNL Psychiatric: Yes: WNL, Alert, Oriented Labs: CBC, BMP 10/14/18 18:32 10/14/18 18:32 Laboratory Results - last 24 hr 10/14/18 10/14/18 10/14/18 17:48 18:32 18:32 WBC 13.9 H RBC 2.46 L Hgb 7.3 L Hct 21.9 L D MCV 89.1 MCH 29.9 MCHC 33.6 RDW 18.5 H Plt Count 158 MPV 9.7 Absolute Neuts (auto) 9.6 H Neutrophils % 68.9 Lymphocytes % 20.0 Monocytes % 7.4 Eosinophils % 3.1 Basophils % 0.6 Nucleated RBC % 1 H PT with INR 101.50 H INR 8.42 H* Sodium Potassium Chloride Carbon Dioxide Anion Gap BUN Creatinine Creat Clearance w eGFR Random Glucose Calcium Magnesium Total Bilirubin AST ALT Alkaline Phosphatase LD Total Creatine Kinase Troponin I Total Protein Albumin Stool Occult Blood Influenza A (Rapid) Negative Influenza B (Rapid) Negative Blood Type Antibody Screen Crossmatch 10/14/18 10/14/18 10/14/18 18:32 19:31 19:54 WBC RBC Hgb Hct MCV MCH MCHC RDW Plt Count MPV Absolute Neuts (auto) Neutrophils % Lymphocytes % Monocytes % Eosinophils % Basophils % Nucleated RBC % PT with INR INR Sodium 136 Potassium 4.0 Chloride 107 Carbon Dioxide 24 Anion Gap 6 L BUN 24 H Creatinine 0.7 Creat Clearance w eGFR 88.94 Random Glucose 138 H Calcium 8.2 L Magnesium 1.8 Total Bilirubin 0.2 AST 23 ALT 20 Alkaline Phosphatase 69 LD Total 426 H Creatine Kinase 108 Troponin I 0.22 H Total Protein 6.3 L Albumin 3.3 L Stool Occult Blood Positive Influenza A (Rapid) Influenza B (Rapid) Blood Type A POSITIVE Antibody Screen Negative Crossmatch See Detail Imaging - Results Chest X-ray: Report Reviewed, Image Reviewed EKG: Image Reviewed Problem List - Problems (1) Symptomatic anemia Assessment/Plan: Will admit to Telemetry PRBCs x2 pending Add on Fe, TIBC, Ferritin to prior specimens Serial CBC O2 f/u with Hematology outpatient Code(s): D64.9 - ANEMIA, UNSPECIFIED (2) GI bleed Assessment/Plan: Likely secondary to medication vs hemorrhoids vs malignancy Stool Occult positive Appreciate GI consult CBC 7.2 decrease from baseline Monitor CBC Monitor vitals Continue cardiac monitoring Code(s): K92.2 - GASTROINTESTINAL HEMORRHAGE, UNSPECIFIED (3) Chest pain Assessment/Plan: Likely secondary to Arrhythmia vs Anemia HEART Score 3 Serial Enzymes- elevated x1 EKG reviewed no acute ST or TWI Chest Xray- reviewed Appreciate Cardiology consult Echo in am Hold Asa secondary to Anemia/GI Bleed Code(s): R07.9 - CHEST PAIN, UNSPECIFIED Qualifiers: Chest pain type: unspecified Qualified Code(s): R07.9 - Chest pain, unspecified (4) Supratherapeutic INR Assessment/Plan: Likely secondary to Coumadin use Hold Coumadin until INR 2.5-3.5 Series INRs Will give Vitamin K if active bleeding Code(s): R79.1 - ABNORMAL COAGULATION PROFILE (5) COPD (chronic obstructive pulmonary disease) Assessment/Plan: Duoneb Continue Spiriva Code(s): J44.9 - CHRONIC OBSTRUCTIVE PULMONARY DISEASE, UNSPECIFIED (6) Diabetes Assessment/Plan: stable Monitor BGM ISS when diet resumed Monitor renal function Code(s): E11.9 - TYPE 2 DIABETES MELLITUS WITHOUT COMPLICATIONS Qualifiers: Diabetes mellitus type: type 2 (7) H/O prosthetic mitral valve Assessment/Plan: Monitor INRs Hold Coumadin secondary to Supratherapeutic INRs (8) HLD (hyperlipidemia) Assessment/Plan: Continue Lipitor Code(s): E78.5 - HYPERLIPIDEMIA, UNSPECIFIED (9) HTN (hypertension) Assessment/Plan: Hold BP meds secondary to hypotension Monitor BP Code(s): I10 - ESSENTIAL (PRIMARY) HYPERTENSION Assessment/Plan This is a 47 y/o woman with a PMHx of: HTN, HLD, DM, COPD, Asthma, s/p Mechanical Valve x2 (2012). Admitted to Telemetry for Chest Pain, Elevated Troponin, Symptomatic Anemia, GI Bleed, Supratherapuetic INR for further evaluation of their emergent condition. Plan: See Problem List FEN D51/2NS@60ml/hr Replete lytes prn NPO DVT ppx OOB SCDs Hold AC secondary to Anemia/GI Bleed Code Status: Full Code Dispo: Requires Inpatient Care Visit type - Emergency Visit Emergency Visit: Yes ED Registration Date: 10/14/18 Care time: The patient presented to the Emergency Department on the above date and was hospitalized for further evaluation of their emergent condition. - New Patient This patient is new to me today: Yes Date on this admission: 10/14/18 - Critical Care Critical Care patient: No
[2018-10-15 06:36] LABS: BASO % 0.5 % (0-2.0); EOS % 2.5 % (0-4.5); HEMATOCRIT 24.8 % (32.4-45.2); HEMOGLOBIN 8.2 GM/dL (10.7-15.3); LYMPH % 24.8 % (8-40); MCH 29.2 pg (25.7-33.7); MCHC 33.1 g/dl (32.0-36.0); MEAN CELL VOLUME 88.4 fl (80-96); MEAN PLT VOLUME 9.4 fl (7.5-11.1); MONO % 8.5 % (3.8-10.2); NEUT % 63.7 % (42.8-82.8); PLATELET COUNT 126 K/MM3 (134-434); RBC 2.81 M/mm3 (3.60-5.2); RDW 15.5 % (11.6-15.6)
[2018-10-15 07:01] LABS: PROTHROMBIN TIME (PATIENT) 79.4 SEC (9.7-13.0)
[2018-10-15 07:10] LABS: ANION GAP 4 MMOL/L (8-16); BLOOD UREA NITROGEN 21 mg/dL (7-18); CALCIUM 7.7 mg/dL (8.5-10.1); CHLORIDE 112 mmol/L (98-107); CHOLESTEROL 86 mg/dL (50-200); CO2 24 mmol/L (21-32); CREATININE 0.6 mg/dL (0.55-1.3); GLUCOSE,RANDOM 126 mg/dL (74-106); HDL CHOLESTEROL 27 mg/dL (40-60); PHOSPHOROUS 3.1 mg/dL (2.5-4.9); SODIUM 140 mmol/L (136-145); TRIGLYCERIDES 151 mg/dL (0-150)
[2018-10-15 08:03] LABS: INR 6.6 (0.83-1.09)
--- NOTE | 2018-10-15 10:29 | PN ---
Progress Note, Physician History of Present Illness: 47 y/o female with past medical history of Mechanical Valve x 2 (On Coumadin), COPD, Asthma, HTN, HLD, DM. Patient presented to ER with complaints of dark stools, weakness, SOB, and chest pain and was found to be anemic with Hg 7.3. On examination patient was finishing 2nd unit of PRBC transfusion. In ER Stool OB positive and elevated INR 8.42. - Objective Vital Signs: Vital Signs Temperature 98.3 F 10/15/18 06:00 Pulse Rate 84 10/15/18 07:30 Respiratory Rate 14 10/15/18 07:30 Blood Pressure 119/64 10/15/18 07:30 O2 Sat by Pulse Oximetry (%) 100 10/15/18 07:30 Cardiovascular: Yes: Murmur, S1, S2 Respiratory: Yes: Regular, CTA Bilaterally Gastrointestinal: Yes: Normal Bowel Sounds, Soft. No: Tenderness Edema: No Labs: CBC, BMP 10/15/18 05:20 10/15/18 05:20 INR, PTT INR 6.60 (0.83-1.09) H* 10/15/18 05:20 Problem List - Problems (1) Symptomatic anemia Assessment/Plan: TRANSFUSE PRBC MONITOR CBC PPI HOLD COUMADIN Code(s): D64.9 - ANEMIA, UNSPECIFIED (2) Diabetes Assessment/Plan: BG ENDO Code(s): E11.9 - TYPE 2 DIABETES MELLITUS WITHOUT COMPLICATIONS Qualifiers: Diabetes mellitus type: type 2 (3) GI bleed Assessment/Plan: ABOVE Code(s): K92.2 - GASTROINTESTINAL HEMORRHAGE, UNSPECIFIED (4) H/O prosthetic mitral valve Assessment/Plan: CARDIO HOLD COUMADIN (5) HTN (hypertension) Assessment/Plan: Vital Signs Period Temp Pulse Resp BP Sys/Galaviz Pulse Ox Last 24 Hr 97.9 F-99.9 F 84-114 14-22 101-120/55-64 97-100 HOLD BP MEDS Code(s): I10 - ESSENTIAL (PRIMARY) HYPERTENSION (6) Supratherapeutic INR Assessment/Plan: HOLD COUAMDIN MONITOR INR==6 Code(s): R79.1 - ABNORMAL COAGULATION PROFILE
--- NOTE | 2018-10-15 10:33 | EKG ---
Test Reason : Blood Pressure : / mmHG Vent. Rate : 109 BPM Atrial Rate : 109 BPM P-R Int : 146 ms QRS Dur : 084 ms QT Int : 346 ms P-R-T Axes : 061 038 004 degrees QTc Int : 465 ms SINUS TACHYCARDIA MINIMAL VOLTAGE CRITERIA FOR LVH, MAY BE NORMAL VARIANT BORDERLINE ECG WHEN COMPARED WITH ECG OF 02-AUG-2016 09:50, NO SIGNIFICANT CHANGE WAS FOUND Confirmed by GHULAM PATRICK, AMADO ([id number]) on 10/15/2018 10:32:56 AM Referred By: Confirmed By:AMADO PARMAR MD
--- NOTE | 2018-10-15 10:35 | CON.GI ---
Consult Consult Specialty:: GI Referred by:: Ann Flores NP Reason for Consultation:: GI Bleed - History of Present Illness History of Present Illness: Patient is a 47 y/o female with past medical history of Mechanical Valve x 2 ( On Coumadin), COPD, Asthma, HTN, HLD, DM. Patient presented to ER with complaints of dark stools, weakness, SOB, and chest pain and was found to be anemic with Hg 7.3. On examination patient was finishing 2nd unit of PRBC transfusion. In ER Stool OB positive and elevated INR 8.42. Patient denies dysphagia, heartburn, nausea, vomiting, abdominal pain. Denies diarrhea, rectal bleeding. Patient had colonoscopy done 07/2016 which showed diminuitive hyperplastic sessile polyp. Endoscopy from 07/2016 shows duodenal bulb with polypoid fragments of benign gastric-type mucosa with mild chronic inflammation , most suggestive of gastric heterotopia, no malignancy identified. - History Source History Provided By: Patient Limitations to Obtaining History: No Limitations - Past Medical History Cardio/Vascular: Yes: HTN, Hyperlipdemia, Other (heart valve) Pulmonary: Yes: Asthma, COPD Gastrointestinal: Yes: GI Bleed, Other (polyp removed) ...LMP: 07/26/16 Endocrine: Yes: Diabetes Mellitus - Past Surgical History Past Surgical History: Yes: Colonoscopy, Valve Replacement - Alcohol/Substance Use Hx Alcohol Use: No History of Substance Use: reports: None - Smoking History Smoking history: Current every day smoker Have you smoked in the past 12 months: No Aproximately how many cigarettes per day: 10 - Social History ADL: Independent History of Recent Travel: No Home Medications - Allergies Allergies/Adverse Reactions: Allergies Allergy/AdvReac Type Severity Reaction Status Date / Time Penicillins Allergy Verified 10/14/18 17:41 - Home Medications Home Medications: Ambulatory Orders Albuterol Sulfate [Proair Respiclick] 90 mcg IH DAILY 08/02/16 Tiotropium [place] [Spiriva] 1 inh PO DAILY 08/02/16 Acetaminophen [Tylenol .Regular Strength -] 650 mg PO Q6H PRN #0 tablet Amlodipine Besylate 5 mg PO DAILY 10/14/18 Atorvastatin Ca [Lipitor] 40 mg PO HS 10/14/18 Losartan Potassium 100 mg PO DAILY 10/14/18 Metoclopramide HCl 10 mg PO PRN PRN 10/14/18 Pregabalin [Lyrica -] 100 mg PO TID PRN 10/14/18 Warfarin Na [Coumadin -] 10 mg PO HS 10/14/18 Family Disease History - Family Disease History Family Disease History: Heart Disease: Grandparent, Other: Mother (, age 18) Review of Systems - Review of Systems Constitutional: reports: Weakness Eyes: reports: No Symptoms HENT: reports: No Symptoms Neck: reports: No Symptoms Cardiovascular: reports: No Symptoms Respiratory: reports: No Symptoms Gastrointestinal: reports: Melena Genitourinary: reports: No Symptoms Breasts: reports: No Symptoms Reported Musculoskeletal: reports: No Symptoms Integumentary: reports: No Symptoms Neurological: reports: No Symptoms Endocrine: reports: No Symptoms Hematology/Lymphatic: reports: No Symptoms Psychiatric: reports: No Symptoms Physical Exam-GI Vital Signs: Vital Signs Temperature 98.3 F 10/15/18 06:00 Pulse Rate 84 10/15/18 07:30 Respiratory Rate 14 10/15/18 07:30 Blood Pressure 119/64 10/15/18 07:30 O2 Sat by Pulse Oximetry (%) 100 10/15/18 07:30 Constitutional: Yes: Well Nourished, No Distress, Calm Eyes: Yes: Conjunctiva Clear HENT: Yes: Atraumatic Cardiovascular: Yes: Regular Rate and Rhythm Respiratory: Yes: Regular, CTA Bilaterally Gastrointestinal Inspection: Yes: WNL. No: Ascites, Distention, Hernia, Scars, Other ...Auscultate: Yes: Normoactive Bowel Sounds. No: Hyperactive Bowel Sounds, Hypoactive Bowel Sounds, No Bowel Sounds, Other ...Palpate: Yes: Soft. No: Firm/Rigid, Guarding, Hepatomegaly, Mass, Pulsatile Mass, Splenomegaly, Tenderness, Tenderness, Epigastium, Tenderness, Rebound, Other ...Percussion: Yes: Tympanitic. No: Dullness, Fluid Wave, Other Neurological: Yes: Alert, Oriented Psychiatric: Yes: Alert, Oriented Labs: CBC, BMP 10/15/18 05:20 10/15/18 05:20 INR, PTT INR 6.60 (0.83-1.09) H* 10/15/18 05:20 Problem List - Problems (1) GI bleed Assessment/Plan: R>CT Enteropgraphy to R/O GI Neoplasm >transfuse to Hg 8.0 >follow up as outpatient for video capsule Code(s): K92.2 - GASTROINTESTINAL HEMORRHAGE, UNSPECIFIED
[2018-10-15] MEDS ORDERED: SODIUM CHLORIDE 1,000 ML IV SCH (11:30)
[2018-10-15] MEDS ORDERED: ACETAMINOPHEN 325 MG TABLET (FP) PO PRN (12:53)
[2018-10-15] MEDS ORDERED: PANTOPRAZOLE SODIUM 80 MG in SODIUM CHLORIDE 100 ML IVPB SCH (13:45)
[2018-10-15] MEDS ORDERED: FLUCONAZOLE 150 MG TABLET PO ONE (13:45)
--- NOTE | 2018-10-15 13:55 | CON.CARD ---
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 The patient is comfortable. Denies chest pains and shortness of breath. No palpitations. No bleeding at the time of my interview. - History Source History Provided By: Patient, Medical Record Limitations to Obtaining History: No Limitations - Past Medical History Cardio/Vascular: Yes: HTN, Hyperlipdemia, Other (heart valve) Pulmonary: Yes: Asthma, COPD Gastrointestinal: Yes: GI Bleed, Other (polyp removed) ...LMP: 07/26/16 Endocrine: Yes: Diabetes Mellitus - Past Surgical History Past Surgical History: Yes: Colonoscopy, Valve Replacement - Alcohol/Substance Use Hx Alcohol Use: No History of Substance Use: reports: None - Smoking History Smoking history: Current every day smoker Have you smoked in the past 12 months: No Aproximately how many cigarettes per day: 10 - Social History ADL: Independent History of Recent Travel: No Home Medications - Allergies Allergies/Adverse Reactions: Allergies Allergy/AdvReac Type Severity Reaction Status Date / Time Penicillins Allergy Verified 10/14/18 17:41 - Home Medications Home Medications: Ambulatory Orders Albuterol Sulfate [Proair Respiclick] 90 mcg IH DAILY 08/02/16 Tiotropium [place] [Spiriva] 1 inh PO DAILY 08/02/16 Acetaminophen [Tylenol .Regular Strength -] 650 mg PO Q6H PRN #0 tablet Amlodipine Besylate 5 mg PO DAILY 10/14/18 Atorvastatin Ca [Lipitor] 40 mg PO HS 10/14/18 Losartan Potassium 100 mg PO DAILY 10/14/18 Metoclopramide HCl 10 mg PO PRN PRN 10/14/18 Pregabalin [Lyrica -] 100 mg PO TID PRN 10/14/18 Warfarin Na [Coumadin -] 10 mg PO HS 10/14/18 Family Disease History - Family Disease History Family Disease History: Heart Disease: Grandparent, Other: Mother (MS, age 18) Review of Systems - Review of Systems Constitutional: reports: No Symptoms Eyes: reports: No Symptoms HENT: reports: No Symptoms Neck: reports: No Symptoms Cardiovascular: reports: No Symptoms Respiratory: reports: No Symptoms Gastrointestinal: reports: Rectal Bleeding Genitourinary: reports: No Symptoms Breasts: reports: No Symptoms Reported Musculoskeletal: reports: No Symptoms Integumentary: reports: No Symptoms Neurological: reports: No Symptoms Endocrine: reports: No Symptoms Hematology/Lymphatic: reports: No Symptoms Psychiatric: reports: No Symptoms Vital Signs: Vital Signs Temperature 98.3 F 10/15/18 06:00 Pulse Rate 84 10/15/18 07:30 Respiratory Rate 14 10/15/18 07:30 Blood Pressure 119/64 10/15/18 07:30 O2 Sat by Pulse Oximetry (%) 100 10/15/18 07:30 Constitutional: Yes: Well Nourished, No Distress, Calm Eyes: Yes: WNL, Conjunctiva Clear, EOM Intact HENT: Yes: WNL, Atraumatic, Normocephalic Neck: Yes: WNL, Supple, Trachea Midline Respiratory: Yes: WNL, Regular, CTA Bilaterally Gastrointestinal: Yes: WNL, Normal Bowel Sounds, Soft Renal/: Yes: WNL Cardiovascular: Yes: WNL, Regular Rate and Rhythm JVD: No Carotid Bruit: No PMI: Non-Displaced Heart Sounds: Yes: S1, S2 Murmur: Yes: Systolic Murmur, Grade 2 Musculoskeletal: Yes: WNL Extremities: Yes: WNL Edema: No Peripheral Pulses WNL: Yes Integumentary: Yes: WNL Neurological: Yes: WNL, Alert, Oriented ...Motor Strength: WNL - Other Data Labs, Other Data: CBC, BMP 10/15/18 05:20 10/15/18 05:20 INR, PTT INR 6.60 (0.83-1.09) H* 10/15/18 05:20 Troponin, BNP 10/14/18 10/15/18 18:32 05:20 Troponin I 0.22 H 0.20 H Troponin, BNP 10/14/18 10/15/18 18:32 05:20 Troponin I 0.22 H 0.20 H Assessment/Plan presenting with rectal bleed and a supratherapeutic INR of 8.4. The patient is comfortable. Denies chest pains and shortness of breath. No palpitations. No bleeding at the time of my interview. There is no evidence of ischemia nor acute coronary syndrome. No CHF. No cardiac symptoms. Continue to hold Coumadin. Daily PT/INR. Resume Coumadin, if the bleeding stops, once INR reaches about 4.0 If INR reaches 2.5 or lower, start heparin. Target INR should be 2.53.5. Cannot stop anticoagulation. No need for further cardiac workup at this point. Please arrange for close INR monitoring as outpatient. Cardiac stable. Please do not hesitate to call us PRN
--- NOTE | 2018-10-15 14:11 | ECHO ---
Name: GERARDO POOL Exam:Adult Echocardiogram Study Date: 10/15/2018 10:52 AM Age: 47 yrs Reason For Study: CHESAT PAIN Height: 59 in Weight: 142 lb BSA: 1.6 m2 MMode/2D Measurements & Calculations IVSd: 0.98 cm Ao root diam: 2.0 cm LVIDd: 4.7 cm LVIDs: 2.8 cm LVPWd: 0.83 cm EDV(Teich): 102.1 ml LVOT diam: 1.9 cm ESV(Teich): 29.8 ml Doppler Measurements & Calculations MV E max chong: 171.4 cm/sec Ao V2 max: 334.5 cm/sec MV A max chong: 96.7 cm/sec Ao max P.7 mmHg MV E/A: 1.8 Ao V2 mean: 216.1 cm/sec MV dec time: 0.23 sec Ao mean P.0 mmHg Ao V2 VTI: 62.4 cm KAREN(I,D): 0.87 cm2 KAREN(V,D): 0.79 cm2 LV V1 max P.4 mmHg MR max chong: 687.7 cm/sec LV V1 mean P.9 mmHg MR max P.7 mmHg LV V1 max: 92.1 cm/sec LV V1 mean: 64.1 cm/sec LV V1 VTI: 18.7 cm SV(LVOT): 54.1 ml TR max chong: 229.8 cm/sec TR max P.2 mmHg Med Peak E' Chong: 5.9 cm/sec Med E/e': 28.8 Lat Peak E' Chong: 7.5 cm/sec Lat E/e': 22.8 Procedure The study was technically difficult with many images being suboptimal in quality. Left Ventricle The left ventricular size, thickness and function are normal. The left ventricular ejection fraction is normal. Left Ventricular Filling pattern is normal for age. The left ventricular wall motion is yury l. Right Ventricle The right ventricle is normal in size and function. Atria The left atrium is not well visualized. Right atrium not well visualized. Mitral Valve There is a mechanical mitral valve. The prosthetic mitral valve is well-seated. The prosthetic mitral valve is not well visualized. There is no mitral valve stenosis. There is mild mitral regurgitation. Tricuspid Valve The tricuspid valve is not well visualized. There is no tricuspid stenosis. There is moderate tricusp id regurgitation. Right ventricular systolic pressure is normal. Aortic Valve There is a mechanical aortic valve. The prosthetic aortic valve is not well visualized. The prostheti c aortic valve is well-seated. Mild to moderate valvular aortic stenosis. Mild to moderate aortic regurgitatio n. Pulmonic Valve The pulmonic valve is not well visualized. Great Vessels The aortic root is normal size. Pericardium/Pleura There is no pericardial effusion. Interpretation Summary There is mild mitral regurgitation. Left Ventricular Filling pattern is normal for age. The left ventricular wall motion is normal. The left ventricular ejection fraction is normal. There is moderate tricuspid regurgitation. Right ventricular systolic pressure is normal. There is a mechanical aortic valve. The prosthetic aortic valve is not well visualized. The prosthetic aortic valve is well-seated. There is a mechanical mitral valve. The prosthetic mitral valve is well-seated. The prosthetic mitral valve is not well visualized. Mild to moderate aortic regurgitation. Mild to moderate valvular aortic stenosis. MD Ovidio Interiano 10/15/2018 02:11 PM
[2018-10-15] MEDS: NICOTINE 14 MG/24 HOURS TOPICAL PATCH TD SCH (15:30)
[2018-10-15 15:49] LABS: HEMATOCRIT 26.4 % (32.4-45.2); HEMOGLOBIN 8.9 GM/dL (10.7-15.3); MCH 29.8 pg (25.7-33.7); MCHC 33.7 g/dl (32.0-36.0); MEAN CELL VOLUME 88.4 fl (80-96); MEAN PLT VOLUME 9.7 fl (7.5-11.1); PLATELET COUNT 113 K/MM3 (134-434); RBC 2.99 M/mm3 (3.60-5.2); RDW 14.8 % (11.6-15.6); WHITE BLOOD COUNT 12.1 K/mm3 (4.0-10.0)
[2018-10-15] MEDS: ALBUTEROL SO4 2.5/IPRATROPIUM 0.5 INH SOL 3 ML VIAL.NEB. NEB SCH ×2 (16:48→21:02)
[2018-10-15] MEDS: ATORVASTATIN CA 40 MG TABLET (FP) PO SCH (22:09)
[2018-10-15] MEDS: PANTOPRAZOLE 40 MG TABLET (FP) PO SCH (22:10)
[2018-10-16 07:49] LABS: PROTHROMBIN TIME (PATIENT) 55.3 SEC (9.7-13.0)
[2018-10-16 07:54] LABS: BASO % 0.4 % (0-2.0); EOS % 3.3 % (0-4.5); HEMATOCRIT 20.7 % (32.4-45.2); HEMOGLOBIN 7.1 GM/dL (10.7-15.3); LYMPH % 19.6 % (8-40); MCH 30.8 pg (25.7-33.7); MCHC 34.4 g/dl (32.0-36.0); MEAN CELL VOLUME 89.5 fl (80-96); MEAN PLT VOLUME 9.8 fl (7.5-11.1); MONO % 8.2 % (3.8-10.2); NEUT % 68.5 % (42.8-82.8); PLATELET COUNT 103 K/MM3 (134-434); RBC 2.31 M/mm3 (3.60-5.2); WHITE BLOOD COUNT 10.8 K/mm3 (4.0-10.0)
[2018-10-16] MEDS: ALBUTEROL SO4 2.5/IPRATROPIUM 0.5 INH SOL 3 ML VIAL.NEB. NEB SCH ×4 (08:00→21:04)
[2018-10-16 08:20] LABS: ALBUMIN 2.7 g/dl (3.4-5.0); ALK PHOS 47 U/L (45-117); ANION GAP 4 MMOL/L (8-16); BILIRUBIN,TOTAL 0.3 mg/dL (0.2-1); BLOOD UREA NITROGEN 19 mg/dL (7-18); CALCIUM 7.6 mg/dL (8.5-10.1); CHLORIDE 111 mmol/L (98-107); CO2 24 mmol/L (21-32); CREATININE 0.6 mg/dL (0.55-1.3); GLUCOSE,RANDOM 176 mg/dL (74-106); POTASSIUM 4.1 mmol/L (3.5-5.1); SGOT/AST 18 U/L (15-37); SGPT/ALT 16 U/L (13-61); SODIUM 139 mmol/L (136-145)
[2018-10-16 08:30] LABS: INR 4.61 (0.83-1.09)
--- NOTE | 2018-10-16 08:32 | PN.GI ---
GI Progress Note Subjective: Patient denies rectal bleeding, melena, nausea, vomiting or abdominal pain. Patient is s/p 2U PRBC transfusion yesterday and adequate rise noted in Hg to 8.9 yesterday, however todays recent Hg 7.1. Will order 2UPRBC transfusion. - Objective Vital Signs: Vital Signs Temperature 98.5 F 10/16/18 05:00 Pulse Rate 91 H 10/16/18 05:00 Respiratory Rate 20 10/16/18 05:00 Blood Pressure 113/69 10/16/18 05:00 O2 Sat by Pulse Oximetry (%) 100 10/15/18 21:00 Constitutional: No Distress, Calm Eyes: Yes: Conjunctiva Clear HENT: Yes: Atraumatic Cardiovascular: Yes: Regular Rate and Rhythm Respiratory: Yes: Regular, CTA Bilaterally Gastrointestinal Inspection: Yes: WNL. No: Ascites, Distention, Hernia, Scars, Other ...Auscultate: Yes: Normoactive Bowel Sounds. No: Hyperactive Bowel Sounds, Hypoactive Bowel Sounds, No Bowel Sounds, Other ...Palpate: Yes: Soft. No: Firm/Rigid, Guarding, Hepatomegaly, Mass, Pulsatile Mass, Splenomegaly, Tenderness, Tenderness, Epigastium, Tenderness, Rebound, Other ...Percussion: Yes: Tympanitic. No: Dullness, Fluid Wave, Other Neurological: Yes: Alert, Oriented Psychiatric: Yes: Alert, Oriented Labs: CBC, BMP 10/16/18 05:40 INR, PTT INR 6.60 (0.83-1.09) H* 10/15/18 05:20 Active Medications Generic Name Dose Route Start Last Admin Trade Name Demianq PRN Reason Stop Dose Admin Acetaminophen 650 mg 10/15/18 12:53 Tylenol - PO Q6H PRN HEADACHE Albuterol/Ipratropium 1 amp 10/15/18 16:00 10/16/18 08:00 Duoneb - NEB 1 amp RQID LENORA Administration Atorvastatin Calcium 40 mg 10/15/18 22:00 10/15/18 22:09 Lipitor - PO 40 mg HS LENROA Administration Nicotine 14 mg 10/15/18 13:15 10/15/18 15:30 Nicoderm Patch - TD 14 mg DAILY LENORA Administration Pantoprazole Sodium 40 mg 10/15/18 22:00 05/01/19 22:10 Protonix - PO 40 mg BID LENORA Administration Problem List - Problems (1) GI bleed Assessment/Plan: R>CT Enteropgraphy to R/O GI Neoplasm >transfuse to Hg 8.0 >current Hg 7.1--transfuse 2U PRBC >follow up as outpatient for video capsule Code(s): K92.2 - GASTROINTESTINAL HEMORRHAGE, UNSPECIFIED
[2018-10-16] MEDS: NICOTINE 14 MG/24 HOURS TOPICAL PATCH TD SCH (09:14)
[2018-10-16] MEDS: PANTOPRAZOLE 40 MG TABLET (FP) PO SCH ×2 (09:14→21:24)
--- NOTE | 2018-10-16 12:43 | PN ---
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 hgb 7.[address] enterography today - Current Medication List Current Medications: Active Medications Acetaminophen (Tylenol -) 650 mg PO Q6H PRN PRN Reason: HEADACHE Last Admin: 10/16/18 11:58 Dose: 650 mg Albuterol/Ipratropium (Duoneb -) 1 amp NEB RQID [facility] Last Admin: 10/16/18 08:00 Dose: 1 amp Atorvastatin Calcium (Lipitor -) 40 mg PO HS [facility] Last Admin: 10/15/18 22:09 Dose: 40 mg Nicotine (Nicoderm Patch -) 14 mg TD DAILY [facility] Last Admin: 10/16/18 09:14 Dose: 14 mg Pantoprazole Sodium (Protonix -) 40 mg PO BID [facility] Last Admin: 10/16/18 09:14 Dose: 40 mg - Objective Vital Signs: Vital Signs Temperature 98.5 F 10/16/18 05:00 Pulse Rate 91 H 10/16/18 05:00 Respiratory Rate 20 10/16/18 05:00 Blood Pressure 113/69 10/16/18 05:00 O2 Sat by Pulse Oximetry (%) 100 10/15/18 21:00 Constitutional: Yes: Calm Cardiovascular: Yes: Regular Rate and Rhythm, S1, S2 Respiratory: Yes: CTA Bilaterally Gastrointestinal: Yes: Normal Bowel Sounds, Soft Edema: No Neurological: Yes: Alert, Oriented Labs: CBC, BMP 10/16/18 05:40 10/16/18 05:40 INR, PTT INR 4.61 (0.83-1.09) H* 10/16/18 05:40 Problem List - Problems (1) GI bleed Assessment/Plan: ct enterography today transfuse 2 units prbc today GI on board PPI bid NPO trend h/h Code(s): K92.2 - GASTROINTESTINAL HEMORRHAGE, UNSPECIFIED (2) H/O prosthetic mitral valve Assessment/Plan: hold coumadin bc of increase INRtarget range in 2.5-3.5 (3) Supratherapeutic INR Assessment/Plan: let INR drift down Code(s): R79.1 - ABNORMAL COAGULATION PROFILE
--- NOTE | 2018-10-16 18:53 | HOSP ---
Subjective - Review of Symptoms General: Yes: Other Pulmonary: Yes: Other Gastrointestinal: Yes: Abdominal Pain Physical Examination Vital Signs: Vital Signs Temperature 98.5 F 10/16/18 05:00 Pulse Rate 94 H 10/16/18 17:00 Respiratory Rate 18 10/16/18 17:00 Blood Pressure 98/60 10/16/18 17:00 O2 Sat by Pulse Oximetry (%) 100 10/15/18 21:00 Constitutional: Yes: Well Nourished Eyes: Yes: WNL HENT: Yes: WNL Neck: Yes: WNL Cardiovascular: Yes: Regular Rate and Rhythm Respiratory: Yes: WNL Gastrointestinal: Yes: WNL Labs: CBC, BMP 10/16/18 05:40 10/16/18 05:40 Hospitalist Encounter Assessment: Called by primary RN to come see patient after patient c/o of feeing "like my throat feels funny" and having abdominal pain after receiving apx 1 unit of prbc. On exam patent is awake and alert and in no cute distress. Speaking clearly, denies chest pain, not short of breath. tells me that she began to have abdominal pain and her throat felt funny after receiving apx 100cc blood transfusion. vitals: 98/60, 100% 97 heart rate, 98.2. exam: neuro: awake and alert oral cavity: no signs of - swelling of oral cavity, tolerating room, breathing rate stable. lungs: clear to auscultation bilaterally, no wheezing abdomen: mild abdominal pain, which patient states is chronic plan: monitor on tele, monitor airway with continuous pulse ox patient appears stable and in no acute distress. continue blood transfusion, will order benadryl 25mg iv x 1 and tylenol 650mg iv x 1 full code
[2018-10-16] MEDS ORDERED: ACETAMINOPHEN 325 MG TABLET (FP) PO ONE (18:54)
[2018-10-16] MEDS: ATORVASTATIN CA 40 MG TABLET (FP) PO SCH (21:24)
--- NOTE | 2018-10-17 01:00 | CONSULT ---
Consult Consult Specialty:: endocrine Referred by:: dr.iyad schumacher Reason for Consultation:: diabetes mellitus 2 - History of Present Illness Chief Complaint: bleeding from warfarin History of Present Illness: 47 y/o woman with a past medical history of DM2,COPD, Asthma, HTN, HLD, s/p Mechanical Valve x2 (on Coumadin). Who presented with generalized weakness, CP, SOB, dark stools x 1 day. Patient has increased SOB and fatigue abdominal pain. admitted with hb 7.3,received blood transfusions,for iron loss anemia,has had persistant weakness and nausea,poor appetite - Past Medical History Cardio/Vascular: Yes: HTN, Hyperlipdemia, Other (heart valve) Pulmonary: Yes: Asthma, COPD Gastrointestinal: Yes: GI Bleed, Other (polyp removed) ...LMP: 07/26/16 ...: No Endocrine: Yes: Diabetes Mellitus - Past Surgical History Past Surgical History: Yes: Colonoscopy, Valve Replacement - Alcohol/Substance Use Hx Alcohol Use: No History of Substance Use: reports: None - Smoking History Smoking history: Current every day smoker Have you smoked in the past 12 months: No Aproximately how many cigarettes per day: 10 - Social History ADL: Independent History of Recent Travel: No Home Medications - Allergies Allergies/Adverse Reactions: Allergies Allergy/AdvReac Type Severity Reaction Status Date / Time Penicillins Allergy Verified 10/14/18 17:41 - Home Medications Home Medications: Ambulatory Orders Albuterol Sulfate [Proair Respiclick] 90 mcg IH DAILY 08/02/16 Tiotropium [place] [Spiriva] 1 inh PO DAILY 08/02/16 Acetaminophen [Tylenol .Regular Strength -] 650 mg PO Q6H PRN #0 tablet Amlodipine Besylate 5 mg PO DAILY 10/14/18 Atorvastatin Ca [Lipitor] 40 mg PO HS 10/14/18 Losartan Potassium 100 mg PO DAILY 10/14/18 Metoclopramide HCl 10 mg PO PRN PRN 10/14/18 Pregabalin [Lyrica -] 100 mg PO TID PRN 10/14/18 Warfarin Na [Coumadin -] 10 mg PO HS 10/14/18 Family Disease History - Family Disease History Family Disease History: Heart Disease: Grandparent, Other: Mother (MS, age 18) Review of Systems - Review of Systems Constitutional: reports: Weakness Eyes: reports: No Symptoms HENT: reports: No Symptoms Neck: reports: No Symptoms Cardiovascular: reports: No Symptoms Respiratory: reports: Exercise Intolerance, SOB on Exertion Gastrointestinal: reports: Bloating, Nausea Genitourinary: reports: No Symptoms Musculoskeletal: reports: No Symptoms Integumentary: reports: No Symptoms Neurological: reports: No Symptoms Physical Exam Vital Signs: Vital Signs Temperature 97.6 F 10/16/18 21:00 Pulse Rate 94 H 10/16/18 21:00 Respiratory Rate 20 10/16/18 21:00 Blood Pressure 119/60 10/16/18 21:00 O2 Sat by Pulse Oximetry (%) 100 10/16/18 21:00 Constitutional: Yes: Anxious Eyes: Yes: EOM Intact HENT: Yes: Normocephalic Neck: Yes: Trachea Midline Cardiovascular: Yes: Tachycardia Respiratory: Yes: CTA Bilaterally Gastrointestinal: Yes: Hyperactive Bowel Sounds, Tenderness, Epigastrium ...Rectal Exam: Yes: Deferred Renal/: Yes: WNL Extremities: Yes: WNL Peripheral Pulses WNL: Yes Neurological: Yes: Alert, Oriented Labs: CBC, BMP 10/16/18 05:40 10/16/18 05:40 Problem List - Problems (1) Chest pain Code(s): R07.9 - CHEST PAIN, UNSPECIFIED Qualifiers: Chest pain type: unspecified Qualified Code(s): R07.9 - Chest pain, unspecified (2) Symptomatic anemia Code(s): D64.9 - ANEMIA, UNSPECIFIED (3) COPD (chronic obstructive pulmonary disease) Code(s): J44.9 - CHRONIC OBSTRUCTIVE PULMONARY DISEASE, UNSPECIFIED (4) Diabetes Code(s): E11.9 - TYPE 2 DIABETES MELLITUS WITHOUT COMPLICATIONS Qualifiers: Diabetes mellitus type: type 2 (5) GI bleed Code(s): K92.2 - GASTROINTESTINAL HEMORRHAGE, UNSPECIFIED Assessment/Plan Current Active Problems Chest pain (Acute) Symptomatic anemia (Acute) dm2,neuropathy gi bleeding Abnormal Lab Results 10/14/18 10/14/18 10/16/18 18:30 19:54 05:40 WBC RBC Hgb Hct Plt Count Nucleated RBC % Haptoglobin < 10 L PT with INR 55.30 H INR 4.61 H* Chloride Anion Gap BUN Random Glucose Calcium Total Protein Albumin Crossmatch See Detail 10/16/18 10/16/18 05:40 05:40 WBC 10.8 H RBC 2.31 L Hgb 7.1 L Hct 20.7 L D Plt Count 103 L Nucleated RBC % 2 H Haptoglobin PT with INR INR Chloride 111 H Anion Gap 4 L BUN 19 H Random Glucose 176 H Calcium 7.6 L Total Protein 5.0 L Albumin 2.7 L Crossmatch Laboratory Results - last 24 hr 10/14/18 10/14/18 10/16/18 18:30 19:54 05:40 WBC RBC Hgb Hct MCV MCH MCHC RDW Plt Count MPV Absolute Neuts (auto) Neutrophils % Lymphocytes % Monocytes % Eosinophils % Basophils % Nucleated RBC % Haptoglobin < 10 L PT with INR 55.30 H INR 4.61 H* Sodium Potassium Chloride Carbon Dioxide Anion Gap BUN Creatinine Creat Clearance w eGFR Random Glucose Calcium Total Bilirubin AST ALT Alkaline Phosphatase Total Protein Albumin Blood Type A POSITIVE Antibody Screen Negative Crossmatch See Detail 10/16/18 10/16/18 05:40 05:40 WBC 10.8 H RBC 2.31 L Hgb 7.1 L Hct 20.7 L D MCV 89.5 MCH 30.8 MCHC 34.4 RDW 15.0 Plt Count 103 L MPV 9.8 Absolute Neuts (auto) 7.4 Neutrophils % 68.5 Lymphocytes % 19.6 D Monocytes % 8.2 Eosinophils % 3.3 Basophils % 0.4 Nucleated RBC % 2 H Haptoglobin PT with INR INR Sodium 139 Potassium 4.1 Chloride 111 H Carbon Dioxide 24 Anion Gap 4 L BUN 19 H Creatinine 0.6 Creat Clearance w eGFR 106.25 Random Glucose 176 H Calcium 7.6 L Total Bilirubin 0.3 AST 18 ALT 16 Alkaline Phosphatase 47 Total Protein 5.0 L Albumin 2.7 L Blood Type Antibody Screen Crossmatch plan: bgm qid novolog insulin when tolerating diet levemir restart 20units am gi follow up outpatient
[2018-10-17] MEDS: INSULIN SLIDING SCALE (NOVOLOG) 1 VIAL SQ SCH ×3 (06:28→16:54)
[2018-10-17 07:15] LABS: BASO % 0.4 % (0-2.0); EOS % 2.8 % (0-4.5); HEMATOCRIT 25.2 % (32.4-45.2); HEMOGLOBIN 8.6 GM/dL (10.7-15.3); LYMPH % 19.7 % (8-40); MCH 30.9 pg (25.7-33.7); MCHC 34.1 g/dl (32.0-36.0); MEAN CELL VOLUME 90.8 fl (80-96); MEAN PLT VOLUME 10.1 fl (7.5-11.1); MONO % 7.7 % (3.8-10.2); NEUT % 69.4 % (42.8-82.8); PLATELET COUNT 93 K/MM3 (134-434); RBC 2.78 M/mm3 (3.60-5.2); RDW 13.9 % (11.6-15.6); WHITE BLOOD COUNT 10.7 K/mm3 (4.0-10.0)
[2018-10-17] MEDS: ALBUTEROL SO4 2.5/IPRATROPIUM 0.5 INH SOL 3 ML VIAL.NEB. NEB SCH ×3 (07:25→16:14)
[2018-10-17 07:51] LABS: ALBUMIN 2.6 g/dl (3.4-5.0); ALK PHOS 46 U/L (45-117); ANION GAP 5 MMOL/L (8-16); BILIRUBIN,TOTAL 0.4 mg/dL (0.2-1); BLOOD UREA NITROGEN 19 mg/dL (7-18); CALCIUM 7.6 mg/dL (8.5-10.1); CHLORIDE 110 mmol/L (98-107); CO2 23 mmol/L (21-32); CREATININE 0.6 mg/dL (0.55-1.3); GLUCOSE,RANDOM 152 mg/dL (74-106); SGOT/AST 22 U/L (15-37); SGPT/ALT 18 U/L (13-61); SODIUM 138 mmol/L (136-145); TOT PROT 4.9 g/dl (6.4-8.2)
[2018-10-17 08:04] LABS: INR 2.49 (0.83-1.09); PROTHROMBIN TIME (PATIENT) 29.7 SEC (9.7-13.0)
--- NOTE | 2018-10-17 09:15 | PN.GI ---
GI Progress Note Subjective: Patient states having an episode of dark colored stool yesterday. She is s/p 2U PRBC transfusion, current Hg 8.6. Complain of epigastric pain and having BM with feeling of incomplete evacuation. Denies dysphagia, nausea, vomiting. Denies diarrhea, blood in stool. - Objective Vital Signs: Vital Signs Temperature 98 F 10/17/18 08:51 Pulse Rate 80 10/17/18 08:51 Respiratory Rate 20 10/17/18 08:51 Blood Pressure 103/60 10/17/18 08:51 O2 Sat by Pulse Oximetry (%) 100 10/16/18 21:00 Constitutional: No Distress, Calm Eyes: Yes: Conjunctiva Clear HENT: Yes: Atraumatic Cardiovascular: Yes: Regular Rate and Rhythm Respiratory: Yes: Regular, CTA Bilaterally Gastrointestinal Inspection: Yes: WNL. No: Ascites, Distention, Hernia, Scars, Other ...Auscultate: Yes: Normoactive Bowel Sounds. No: Hyperactive Bowel Sounds, Hypoactive Bowel Sounds, No Bowel Sounds, Other ...Palpate: Yes: Tenderness. No: Firm/Rigid, Guarding, Hepatomegaly, Mass, Pulsatile Mass, Soft, Splenomegaly, Tenderness, Epigastium, Tenderness, Rebound , Other ...Percussion: Yes: Tympanitic. No: Dullness, Fluid Wave, Other Neurological: Yes: Alert, Oriented Psychiatric: Yes: Alert, Oriented Labs: CBC, BMP 10/17/18 05:30 10/17/18 05:30 INR, PTT INR 2.49 (0.83-1.09) H 10/17/18 05:30 Active Medications Generic Name Dose Route Start Last Admin Trade Name Demianq PRN Reason Stop Dose Admin Acetaminophen 650 mg 10/15/18 12:53 10/16/18 11:58 Tylenol - PO 650 mg Q6H PRN Administration HEADACHE Albuterol/Ipratropium 1 amp 10/15/18 16:00 10/17/18 07:25 Duoneb - NEB Not Given RQID LENORA Atorvastatin Calcium 40 mg 10/15/18 22:00 10/16/18 21:24 Lipitor - PO 40 mg HS LENORA Administration Insulin Aspart 1 vial 10/17/18 07:00 10/17/18 06:28 Novolog Vial Sliding Scale - SQ Not Given ACHS LENORA Protocol Nicotine 14 mg 10/15/18 13:15 10/16/18 09:14 Nicoderm Patch - TD 14 mg DAILY LENORA Administration Pantoprazole Sodium 40 mg 10/15/18 22:00 10/16/18 21:24 Protonix - PO 40 mg BID LENORA Administration Problem List - Problems (1) GI bleed Assessment/Plan: R>CT Enteropgraphy done and shows no evidence of bowel lesion or acute pathology within the abdomen or pelvis >transfuse to Hg 8.0, current Hg 8.6 >Hematology Consult--Haptoglobin <10 and PLT 93 >follow up as outpatient for video capsule Code(s): K92.2 - GASTROINTESTINAL HEMORRHAGE, UNSPECIFIED (2) Constipation Assessment/Plan: -start on Miralax Code(s): K59.00 - CONSTIPATION, UNSPECIFIED
[2018-10-17] MEDS ORDERED: POLYETHYLENE GLYCOL 3350 119 GM BTL PO SCH (10:00)
[2018-10-17] MEDS: PANTOPRAZOLE 40 MG TABLET (FP) PO SCH (10:58)
[2018-10-17] MEDS: NICOTINE 14 MG/24 HOURS TOPICAL PATCH TD SCH (10:58)
[2018-10-17 11:03] LABS: LDH 288 U/L (84-246)
[2018-10-17] MEDS ORDERED: PT OWN MED DRAWER 7, Y5N ONE (11:20)
--- NOTE | 2018-10-17 13:02 | PN ---
Progress Note (short form) - Note Progress Note: wants to go home got PRBC yesterday h/h improved waiting to see GI and Heme prior to discharge 'resume coumadin and follow up with PMD on saturday for INR check Problem List - Problems (1) GI bleed Code(s): K92.2 - GASTROINTESTINAL HEMORRHAGE, UNSPECIFIED (3) Supratherapeutic INR Code(s): R79.1 - ABNORMAL COAGULATION PROFILE
--- NOTE | 2018-10-17 13:06 | DS ---
Physical Examination Vital Signs: Vital Signs Temperature 98 F 10/17/18 08:51 Pulse Rate 80 10/17/18 08:51 Respiratory Rate 20 10/17/18 09:00 Blood Pressure 103/60 10/17/18 08:51 O2 Sat by Pulse Oximetry (%) 100 10/17/18 09:00 Constitutional: Yes: Calm Cardiovascular: Yes: Regular Rate and Rhythm, S1, S2 Respiratory: Yes: CTA Bilaterally Gastrointestinal: Yes: Normal Bowel Sounds, Soft Edema: No Neurological: Yes: Alert, Oriented Labs: CBC, BMP 10/17/18 05:30 10/17/18 05:30 Discharge Summary Reason For Visit: ELEVATED TROPONIN I LEVEL, ANEMIA SENSATION OF [place] Current Active Problems Chest pain (Acute) Constipation (Acute) Symptomatic anemia (Acute) Other Procedures: CT enterography normal bowel lesions no acute pathology seen. echo left ventricle wall motion normal,left ventricle ejection fraction is normal Hospital Course: - Primary Care Physician PCP: Saul Santana - Admission Chief Complaint: Generalized Weakness, SOB, Chest Pain History of Present Illness: This is a 47 y/o woman with a past medical history of COPD, Asthma, HTN, HLD, DM , s/p Mechanical Valve x2 (on Coumadin). Who presents to the ED with generalized weakness, CP, SOB, dark stools x 1 day. Patient reports increased SOB and fatigue with non-radiating midsternal CP. Patient reports having dark stools and took iron for it. Patient denies fever, chills, cough, palpitations, AP, N/V/D, constipation, hematuria, dysuria. ER course noted for: (1) Hgb 7.3, HCT 21.9 (2) WBC 13.9 (3) Stool Occult + NPO had gi see her got ct enterography normal got PRBC heme consult for low haptoglobin and thrombocytopenia stopp coudin let INR drift down now restart coumadin given mechanical valve target is 2.5-3.5 leukocytosis trending down Condition: Stable - Instructions Diet, Activity, Other Instructions: Follow up with Dr Santana for for INR check on saturday Follow up with Dr ramirez in 2 weeks for video capsule study see flyer builder for low platelet count Referrals: Hadley Mae MD [Staff Physician] - 2 Weeks (make appointment for low platelet count) - Home Medications Comprehensive Discharge Medication List: Ambulatory Orders Albuterol Sulfate [Proair Respiclick] 90 mcg IH DAILY 08/02/16 Tiotropium [place] [Spiriva] 1 inh PO DAILY 08/02/16 Acetaminophen [Tylenol .Regular Strength -] 650 mg PO Q6H PRN #0 tablet Amlodipine Besylate 5 mg PO DAILY 10/14/18 Atorvastatin Ca [Lipitor] 40 mg PO HS 10/14/18 Losartan Potassium 100 mg PO DAILY 10/14/18 Pregabalin [Lyrica -] 100 mg PO TID PRN 10/14/18 Nicotine Patch [Nicoderm Patch -] 14 mg TD DAILY #30 patch 10/17/18 Polyethylene Glycol 3350 [Miralax 119 gm Btl -] 17 gm PO DAILY #1 bottle Warfarin Na [Coumadin -] 5 mg PO DAILY@1800 tablet 10/17/18
--- NOTE | 2018-10-17 13:12 | CONSULT ---
Consultation: REQUESTING PROVIDER: CONSULT REQUEST: We have been asked to medically evaluate this patient for heme/ onc HISTORY OF PRESENT ILLNESS: 47 y/o F w/PMH COPD, Asthma, HTN, HLD, DM, s/p Mechanical Valve x2 (on Coumadin ) presents for generalized weakness, CP, SOB, and dark stools for 1 day [employer]. She denies N/V/F/C, LE edema, sick contacts, recent travel. She was found to have a Hgb of 7.3 on admission and supratherapeutic INR. EGD from 08/03 showed duodenal bulb with polypoid fragments of benign gastric-type mucosa. Currently has epigastric pain and had a dark BM yesterday. REVIEW OF SYSTEMS: CONSTITUTIONAL: +fatigue Absent: fever, chills CARDIOVASCULAR: +chest pain RESPIRATORY: +SOB Absent: cough GASTROINTESTINAL: +abd pain, melena Absent: nausea, vomiting GENITOURINARY: Absent: dysuria, hematuria NEUROLOGIC: Absent: headache PHYSICAL EXAMINATION Vital Signs - 24 hr 10/16/18 10/16/18 10/17/18 17:00 21:00 01:23 Temperature 97.6 F 98.2 F Pulse Rate 94 H 94 H 79 Respiratory 18 20 18 Rate Blood Pressure 98/60 119/60 100/57 L O2 Sat by Pulse 100 Oximetry (%) 10/17/18 10/17/18 10/17/18 05:45 08:51 09:00 Temperature 98.5 F 98 F Pulse Rate 92 H 80 Respiratory 18 20 20 Rate Blood Pressure 98/65 103/60 O2 Sat by Pulse 100 Oximetry (%) GENERAL: Awake, alert, and fully oriented, in no acute distress. EARS, NOSE, THROAT: Ears normal, nares patent. NECK: Normal range of motion LUNGS: Breath sounds equal, clear to auscultation bilaterally. HEART: Regular rate and rhythm, normal S1 and S2 ABDOMEN: Soft, normoactive BS LOWER EXTREMITIES: warm, well-perfused. No peripheral edema. NEUROLOGICAL: Cranial nerves II-XII grossly intact. Normal speech. PSYCHIATRIC: Cooperative. Good eye contact. Appropriate mood and affect. SKIN: Warm, dry Laboratory Results - last 24 hr 10/14/18 10/17/18 10/17/18 19:54 05:30 05:30 WBC 10.7 H RBC 2.78 L Hgb 8.6 L Hct 25.2 L D MCV 90.8 MCH 30.9 MCHC 34.1 RDW 13.9 Plt Count 93 L MPV 10.1 Absolute Neuts (auto) 7.5 Neutrophils % 69.4 Lymphocytes % 19.7 Monocytes % 7.7 Eosinophils % 2.8 Basophils % 0.4 Nucleated RBC % 0 PT with INR 29.70 H INR 2.49 H Sodium Potassium Chloride Carbon Dioxide Anion Gap BUN Creatinine Creat Clearance w eGFR POC Glucometer Random Glucose Calcium Total Bilirubin AST ALT Alkaline Phosphatase LD Total Total Protein Albumin Blood Type A POSITIVE Antibody Screen Negative Direct Antiglob Test Crossmatch See Detail 10/17/18 10/17/18 10/17/18 05:30 06:06 11:48 WBC RBC Hgb Hct MCV MCH MCHC RDW Plt Count MPV Absolute Neuts (auto) Neutrophils % Lymphocytes % Monocytes % Eosinophils % Basophils % Nucleated RBC % PT with INR INR Sodium 138 Potassium 4.0 Chloride 110 H Carbon Dioxide 23 Anion Gap 5 L BUN 19 H Creatinine 0.6 Creat Clearance w eGFR 106.25 POC Glucometer 161 Random Glucose 152 H Calcium 7.6 L Total Bilirubin 0.4 AST 22 ALT 18 Alkaline Phosphatase 46 LD Total 288 H Total Protein 4.9 L Albumin 2.6 L Blood Type Antibody Screen Direct Antiglob Test Negative Crossmatch 10/17/18 12:13 WBC RBC Hgb Hct MCV MCH MCHC RDW Plt Count MPV Absolute Neuts (auto) Neutrophils % Lymphocytes % Monocytes % Eosinophils % Basophils % Nucleated RBC % PT with INR INR Sodium Potassium Chloride Carbon Dioxide Anion Gap BUN Creatinine Creat Clearance w eGFR POC Glucometer 123 Random Glucose Calcium Total Bilirubin AST ALT Alkaline Phosphatase LD Total Total Protein Albumin Blood Type Antibody Screen Direct Antiglob Test Crossmatch Active Medications Generic Name Dose Route Start Last Admin Trade Name Freq PRN Reason Stop Dose Admin Acetaminophen 650 mg 10/15/18 12:53 10/16/18 11:58 Tylenol - PO 650 mg Q6H PRN Administration HEADACHE Albuterol/Ipratropium 1 amp 10/15/18 16:00 10/17/18 11:03 Duoneb - NEB Not Given RQID LENORA Atorvastatin Calcium 40 mg 10/15/18 22:00 10/16/18 21:24 Lipitor - PO 40 mg HS LENORA Administration Insulin Aspart 1 vial 10/17/18 07:00 10/17/18 12:13 Novolog Vial Sliding Scale - SQ Not Given ACHS [facility] Protocol Nicotine 14 mg 10/15/18 13:15 10/17/18 10:58 Nicoderm Patch - TD 14 mg DAILY LENORA Administration Pantoprazole Sodium 40 mg 10/15/18 22:00 10/17/18 10:58 Protonix - PO 40 mg BID LENORA Administration Polyethylene Glycol 17 gm 10/17/18 10:00 10/17/18 10:59 Miralax (For Daily Use) - PO 17 grams DAILY LENORA Administration Warfarin Sodium 5 mg 10/17/18 18:00 Coumadin - PO DAILY@1800 [facility] ASSESSMENT/PLAN: 47 y/o F w/PMH COPD, Asthma, HTN, HLD, DM, s/p Mechanical Valve x2 (on Coumadin ) presents for generalized weakness, CP, SOB, and dark stools for 1 day [employer]. Anemia Supratherapeutic INR s/p Mechanical Valve GI bleed -F/u GI recs -Transfuse to keep Hgb >8 -INR goal 2.5-3.5 -Yas negative, LDH coming down -Likely secondary to liver pathology or infectious etiology vs GIB Dispo: We will continue to follow the patient. Thank you for this consultative opportunity. Visit type - Emergency Visit Emergency Visit: Yes ED Registration Date: 10/14/18 Care time: The patient presented to the Emergency Department on the above date and was hospitalized for further evaluation of their emergent condition. - New Patient This patient is new to me today: Yes Date on this admission: 10/17/18 - Critical Care Critical Care patient: No
--- NOTE | 2018-10-17 15:36 | PN ---
Progress Note (short form) - Note Progress Note: spoke to patient she will not stay in hospital anymore she needs to go home she will follow with heme as outpatient. Problem List - Problems (1) GI bleed Code(s): K92.2 - GASTROINTESTINAL HEMORRHAGE, UNSPECIFIED (3) Supratherapeutic INR Code(s): R79.1 - ABNORMAL COAGULATION PROFILE
[2018-10-17 15:50] VITALS: BP 128/67; PULSE 107; TEMP 98.9
[2018-10-17] MEDS ORDERED: WARFARIN NA 5 MG TABLET (UD) PO SCH (18:00)
== END 2018-10-17 16:33 | disposition home or self-care (01) | DRG 253 ==
LOC: JER 17:24 → JERBED 19:28 → J4W 10-15 12:51
PROVIDERS: ADMIT Family Medicine; ATTEND Family Medicine
PROC: 30233N1 Transfusion of Nonautologous Red Blood Cells into Peripheral Vein, Percutaneous Approach (ICD-10-PCS; principal; 2018-10-14)
DX: K92.2 Gastrointestinal hemorrhage, unspecified (principal); I10 Essential (primary) hypertension; J44.9 Chronic obstructive pulmonary disease, unspecified; E11.9 Type 2 diabetes mellitus without complications; E78.00 Pure hypercholesterolemia, unspecified; F17.210 Nicotine dependence, cigarettes, uncomplicated; D64.9 Anemia, unspecified; R07.89 Other chest pain; R79.1 Abnormal coagulation profile; K59.00 Constipation, unspecified; Z95.2 Presence of prosthetic heart valve; Z79.01 Long term (current) use of anticoagulants; Z88.0 Allergy status to penicillin
CPT/HCPCS: 36415; 36430; 36511; 71046-TC-FY; 74177-TC; 80048; 80053; 80061; 82272; 82550; 82728; 82962; 83010; 83036; 83615; 83721; 83735; 84100; 84443; 84484; 85025; 85027; 85044; 85610; 86850; 86880; 86900; 86901; 86922; 87040; 87804; 93005; 93010; 93306-TC; 94640; 99285-25; J0131; P9038; P9058

== ENCOUNTER 2020-09-02 19:17 | Emergency (ER) | payer OTHER ==
[2020-09-02 19:26] VITALS: BP 142/72; PULSE 67; TEMP 97.8; BMI 30.2
[2020-09-02] MEDS ORDERED: LIDOCAINE 5% TOPICAL PATCH TP ONE (21:12)
[2020-09-02 21:24] LABS: BASO % 0.5 % (0-2.0); EOS % 3.8 % (0-4.5); HEMATOCRIT 39.3 % (32.4-45.2); HEMOGLOBIN 13.8 GM/dL (10.7-15.3); LYMPH % 15.8 % (8-40); MCH 30.5 pg (25.7-33.7); MCHC 35.2 g/dl (32.0-36.0); MEAN CELL VOLUME 86.7 fl (80-96); MEAN PLT VOLUME 9.6 fl (7.5-11.1); MONO % 8.2 % (3.8-10.2); NEUT % 71.7 % (42.8-82.8); PLATELET COUNT 163 K/MM3 (134-434); RBC 4.53 M/mm3 (3.60-5.2); RDW 16.2 % (11.6-15.6); WHITE BLOOD COUNT 7.7 K/mm3 (4.0-10.0)
[2020-09-02] MEDS ORDERED: LIDOCAINE 5% TOPICAL PATCH ONE (21:27)
[2020-09-02] MEDS ORDERED: ACETAMINOPHEN 325 MG TABLET (FP) PO ONE (21:34)
[2020-09-02 21:37] LABS: INR 2.76 (0.83-1.09)
[2020-09-02 21:40] LABS: ACTIVATED PTT 52.5 SECONDS (25.2-36.5)
[2020-09-02 21:47] LABS: CHLORIDE 108 mmol/L (98-107); POTASSIUM 4.1 mmol/L (3.5-5.1); SODIUM 140 mmol/L (136-145)
[2020-09-02 21:49] LABS: ANION GAP 7 MMOL/L (8-16); BLOOD UREA NITROGEN 14.3 mg/dL (7-18); CO2 25 mmol/L (21-32); GLUCOSE,RANDOM 180 mg/dL (74-106)
[2020-09-02 21:52] LABS: SGPT/ALT 24 U/L (13-61)
[2020-09-02 21:53] LABS: SGOT/AST 27 U/L (15-37)
[2020-09-02 21:54] LABS: BILIRUBIN,TOTAL 0.3 mg/dL (0.2-1); TOT PROT 7.8 g/dl (6.4-8.2)
[2020-09-02 21:55] LABS: ALK PHOS 88 U/L (45-117)
[2020-09-02] MEDS ORDERED: LIDOCAINE PATCH REMOVAL MC SCH (22:00)
[2020-09-02] MEDS ORDERED: KETOROLAC TROMETHAMINE 30 MG/1 ML VIAL IVPUSH ONE (22:53)
[2020-09-02] MEDS ORDERED: DEXAMETHASONE SOD PHOSPHATE 10 MG/1 ML VIAL IVPUSH ONE (22:53)
[2020-09-02] MEDS ORDERED: KETOROLAC TROMETHAMINE 30 MG/1 ML VIAL ONE (23:02)
[2020-09-02] MEDS ORDERED: DEXAMETHASONE SOD PHOSPHATE 10 MG/1 ML VIAL ONE (23:02)
== END 2020-09-02 23:25 | disposition home or self-care (01) ==
LOC: JER 19:17
PROC: 3E033GC Introduction of Other Therapeutic Substance into Peripheral Vein, Percutaneous Approach (ICD-10-PCS; principal; 2020-09-02)
PROC: 3E0333Z Introduction of Anti-inflammatory into Peripheral Vein, Percutaneous Approach (ICD-10-PCS; 2020-09-02)
DX: M79.601 Pain in right arm (principal); M79.602 Pain in left arm
CPT/HCPCS: 36415; 71046-TC-FY; 80053; 82550; 82553; 84484; 85025; 85610; 85730; 93005; 93010; 99285-25; J1100